=== PATIENT | male | born 1985 | race Caucasian/White ===

== ENCOUNTER 2021-03-06 16:16 | Outpatient (REF) | payer OTHER, SELFPAY ==
--- NOTE | ~2021-03-06 | XR_ITS ---
EXAMINATION: XR KNEE, LEFT CLINICAL INFORMATION: Pain COMPARISON: None TECHNIQUE: Four views of the left knee. FINDINGS: Bones and soft tissues are normal. No fracture or joint effusion. Alignment is anatomic. Joint spaces are well maintained. No abnormal soft tissue calcification. XR/XR knee LT 4V IMPRESSION: Normal left knee.
== END 2021-03-06 16:17 | disposition home or self-care (01) ==
LOC: HO.HMGCX 16:16
PROVIDERS: PCP Nurse Practitioner Family; Visit Provider Nurse Practitioner Family
DX: M25.562 Pain in left knee (principal)
CPT/HCPCS: 73564

== ENCOUNTER 2021-05-28 08:00 | Outpatient (RCR) | payer OTHER, SELFPAY ==
--- NOTE | 2021-03-19 14:10 | MHC.PT.EP ---
[facility] [place] Office [place] Office [place] Office [address] [phone] F: [phone] F: [phone] F: [phone] F: [phone] Physical Therapy Plan of Care Date of Evaluation: Date of Surgery: n/a Diagnosis: L knee pain Assessment: Patient is a 35 year old R handed male who presents with s/s consistent with L knee pain. 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 Patient past medical history includes back pain, he received PT before for this. Current impairments include pain, ROM, flexibility, activity tolerance and functional mobility. Functional limitations include decreased ability to walk, change positions, stand, transfer, negotiate stairs, and perform weight bearing activities.. Patient is motivated with good rehab potential. Skilled PT will address impairments and functional limitations in order to achieve goals. Frequency and Duration: The patient will be seen 2x/week for 5 weeks Short Term Goals: I with HEP - 2 week (-) flor - 3 weeks Normal HS flexibility - 3 weeks Shelter Goals: Pain free ADLs/waking up/changing positions - 5 weeks Treatment Plan: Modalities to reduce pain, spasms and effusion. Manual therapy to restore motion and function. Therapeutic exercise to improve strength and flexibility. Neuromuscular re-education for posture and balance. Therapeutic activities to return to functional activities of daily living. Electronically signed by: Tomas Kapoor, PT Please sign and return to therapist. Thank you for your referral.
== END 2021-07-26 12:50 | disposition home or self-care (01) ==
LOC: HO.PTCHIC 08:00
PROVIDERS: PCP Nurse Practitioner Family; Visit Provider Nurse Practitioner Family
DX: M25.562 Pain in left knee (principal)
CPT/HCPCS: 97110; 97112; 97140; 97161; 97530

== ENCOUNTER 2021-06-06 15:01 | Outpatient (REF) | payer OTHER, SELFPAY ==
--- NOTE | ~2021-06-06 | MR_ITS ---
EXAMINATION: MR KNEE WITHOUT CONTRAST, LEFT CLINICAL INFORMATION: Pain in the left knee. COMPARISON: None TECHNIQUE: MRI of the knee without contrast was performed using routine sequences on a high-field scanner. FINDINGS: MENISCI: Medial Meniscus: Question subtle deformity and increased signal along the periphery of the posterior horn of the meniscus at the junction of the posterior horn and posterior root. Findings suspicious but not definitive for tear. Lateral Meniscus: Intact. 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 PCL intact. Collateral: Intact. EXTENSOR MECHANISM: Intact. ARTICULAR CARTILAGE/BONE: Patellofemoral Compartment: Normal. Medial Compartment: Normal. Lateral Compartment: Cartilage heterogeneity, surface irregularity and subchondral cystic change in the posterior weightbearing femoral articular surface extending over 2 cm anterior to posterior and 1 cm transverse. Additional scattered cartilage heterogeneity along the posterior weightbearing tibial articular surface. Small marginal osteophytes Overall mild arthrosis. JOINT FLUID AND BURSAE: Normal. MR/MR knee LT wo con IMPRESSION: Findings in the periphery of the posterior horn of the medial meniscus suspicious but not definitive for tear. Mild arthrosis of the lateral compartment. 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
== END 2021-06-06 15:02 | disposition home or self-care (01) ==
LOC: HO.MRI 15:01
PROVIDERS: PCP Nurse Practitioner Family; Visit Provider Nurse Practitioner Family
DX: M25.562 Pain in left knee (principal)
CPT/HCPCS: 73721

== ENCOUNTER → 2021-06-18 08:40 | Outpatient (BNVA) | payer OTHER, SELFPAY | PROVIDERS: PCP Internal Medicine; Visit Provider Physician Assistant | DX: S83.512A Sprain of anterior cruciate ligament of left knee, initial encounter (principal); M22.42 Chondromalacia patellae, left knee | CPT/HCPCS: 20610; 99202; J1040 ==

== ENCOUNTER 2021-07-01 14:47 | Outpatient (REF) | payer OTHER, SELFPAY | END 2021-07-01 14:48 | disposition home or self-care (01) | LOC: HO.HMGCLDS 14:47 | PROVIDERS: PCP Nurse Practitioner Family; Visit Provider Internal Medicine | DX: Z20.822 Contact with and (suspected) exposure to COVID-19 (principal) | CPT/HCPCS: C9803; U0003; U0005 ==

== ENCOUNTER → 2021-08-01 08:52 | Outpatient (BNVA) | payer OTHER, SELFPAY | PROVIDERS: Visit Provider Physician Assistant | DX: S83.512D Sprain of anterior cruciate ligament of left knee, subsequent encounter (principal) | CPT/HCPCS: 99212 ==

== ENCOUNTER 2021-11-12 12:17 | Outpatient (REF) | payer OTHER, SELFPAY ==
[2021-11-12 13:00] LABS: Influenza A PCR NEGATIVE (Negative); Influenza B PCR NEGATIVE (Negative); Resp Syncy Virus RNA Qual PCR NEGATIVE (Negative); SARS COV2 PCR INHOUSE POSITIVE (Negative)
== END 2021-11-12 12:18 | disposition home or self-care (01) ==
LOC: HO.LNP 12:17
PROVIDERS: Visit Provider Physician Assistant
DX: Z20.822 Contact with and (suspected) exposure to COVID-19 (principal); J02.9 Acute pharyngitis, unspecified
CPT/HCPCS: 0241U

== ENCOUNTER 2022-04-16 08:00 | Outpatient (RCR) | payer OTHER, SELFPAY ==
--- NOTE | 2021-12-25 18:10 | MHC.PT.EP ---
[facility] [place] Office [place] Office [place] Office [address]ia Hughes 140 [facility] [phone] F: [phone] F: [phone] F: [phone] F: [phone] Physical Therapy Plan of Care Date of Evaluation: Date of Surgery: Diagnosis: ACL tear L Assessment: Pt is a 36 y/o male who is active in the and presents with chronic complete L ACL tear resulting in decreased tolerance for running/ jogging which is required for his job, as well as pivoting on his L LE, performing squatting activities, performing sport and recreational activities, standing for long duration secondary to evidence of complete L ACL tear on MRI, decreased L knee and B glute medius strength and pain; Pt is deemed an appropriate candidate to receive skilled PT services to address his physical impairments in order to improve his functional ability. Frequency and Duration: The patient will be seen 1 x / wk x 8 wks. Short Term Goals: Initiate HEP Halfway Goals: I with HEP. L knee extension MMT to 5/5; initial 4/5. Improve B glute med to 5/5; initial 4/5. Pt will be able to run 1 mile with managed symptoms; initial: unable without significant pain and stiffness the next day. Treatment Plan: Modalities to reduce pain, spasms and effusion. Manual therapy to restore motion and function. Therapeutic exercise to improve strength and flexibility. Neuromuscular re-education for posture and balance. Therapeutic activities to return to functional activities of daily living. Electronically signed by: Fran Salas PT, DPT. Please sign and return to therapist. Thank you for your referral.
== END 2022-04-16 10:57 | disposition home or self-care (01) ==
LOC: HO.PTCHIC 08:00
PROVIDERS: PCP Nurse Practitioner Family; Visit Provider Physician Assistant
DX: S83.512A Sprain of anterior cruciate ligament of left knee, initial encounter (principal)
CPT/HCPCS: 97110; 97112; 97161; 97530

== ENCOUNTER 2023-04-09 09:33 | Outpatient (REF) | payer OTHER, SELFPAY ==
--- NOTE | ~2023-04-09 | XR_ITS ---
EXAMINATION: XR WRIST, LEFT CLINICAL INFORMATION: Left wrist pain. COMPARISON: None available. TECHNIQUE: PA, lateral, scaphoid and oblique views of the left wrist. FINDINGS: The bones and soft tissues are normal. No fracture. Alignment is anatomic with normal joint spaces. No erosions or abnormal soft tissue calcifications. XR/XR wrist LT min 3V IMPRESSION: Unremarkable left wrist.
== END 2023-04-09 09:34 | disposition home or self-care (01) ==
LOC: HO.HMGCX 09:33
PROVIDERS: PCP Nurse Practitioner Family; Visit Provider Nurse Practitioner Family
DX: M25.532 Pain in left wrist (principal)
CPT/HCPCS: 73110

== ENCOUNTER 2023-05-18 11:10 | Outpatient (REF) | payer OTHER, SELFPAY ==
--- NOTE | ~2023-05-18 | XR_ITS ---
EXAMINATION: XR WRIST, LEFT CLINICAL INFORMATION: Pain COMPARISON: 04/09/2023 TECHNIQUE: PA, lateral, and oblique views of the left wrist. FINDINGS: The bones and soft tissues are normal. No fracture. Alignment is anatomic with normal joint spaces. No erosions or abnormal soft tissue calcifications. XR/XR wrist LT min 3V IMPRESSION: Normal left wrist.
== END 2023-05-18 11:11 | disposition home or self-care (01) ==
LOC: HO.HOSX 11:10
PROVIDERS: Visit Provider Physician Assistant
DX: S69.92XD Unspecified injury of left wrist, hand and finger(s), subsequent encounter (principal); M25.532 Pain in left wrist; X58.XXXD Exposure to other specified factors, subsequent encounter
CPT/HCPCS: 73110; 99212

== ENCOUNTER 2023-05-18 13:27 | Outpatient (AMB) | payer OTHER, SELFPAY ==
[2023-05-18 13:32] VITALS: BMI 28.7
--- NOTE | 2023-05-18 13:32 | MHC.OFFVIS ---
Intake Vital Signs 05/18/23 13:32 Height 5 ft 10 in Weight 200 lb BMI 28.7 Handedness Right Intake Visit Reasons: New Prob - left wrist pain Intake Note: Kolton is a 38 year old right hand dominant male who presents today for a evaluation for his left wrist pain. He was seen on 04/09/23 in a walk in center due to having a lot of pain. Pain is worse when doing push ups and being flexed per patient. Patient reports no changes in pain. He states that his pain is on the dorsal aspect of the wrist, also he states that when he applies pressure when his wrist is flexed it causes him a lot of pain. Denies numbness and tingling. Allergies No Known Allergies Allergy (Verified 05/18/23 13:43) HPI New Prob - left wrist pain HPI Details 38-year-old right hand dominant male who presents in the office today for an evaluation of left wrist pain. He claims he was seen in the Walk-In clinic on 04/09/2023 due to having a lot of pain. He states the pain increases with push up, being flexed, or applying pressure. He states he has had no change in the pain. He claims the pain is on the dorsal aspect of the left wrist. He does not recall any injury. He states about 6 months ago he was wearing a watch that he felt was causing the pain, he has since stopped wearing the watch. He denies numbness or tingling. Patient has a history of prior bilateral wrist fractures. [facility] Surgical History [place] teeth extracted Social History Alcohol intake: current Alcohol intake frequency: a few times a week Alcohol type: beer Patient Tobacco Use Status: Never used Tobacco Current occupational status: employed Current occupation: rt handed/ [employer] Review of Systems Const All systems reviewed & are unremarkable except as noted in HPI and below Physical Exam Vital Signs: BMI result Body Mass Index 28.7 Const General: cooperative, healthy appearing, comfortable, no acute distress, well developed and alert Orientation/consciousness: patient oriented x3 HEENT Head: Yes normal to inspection, Yes normocephalic and Yes atraumatic Eyes General: appearance normal, both eyes and all related structures Resp Effort & Inspection: normal respiratory effort and able to speak in complete sentences Cardio Rate: regular rate Peripheral pulses: Peripheral pulses 2+ throughout GI Palpation (GI): Soft to palpation Skin Lesions: no lesions Rashes: no rashes Neuro General: patient oriented x3 Extrem Other: Left wrist: Normal to inspection. No ecchymosis, erythema, or edema. Able to perform full finger flexion, extension, abduction, adduction, finger cross, okay sign, and thumbs up without deficit. Able to make a closed fist. Sensation intact. Capillary refill is brisk. Radial pulse intact. Pain and tenderness to palpation over the scapholunate over the dorsal aspect of the wrist. Assessment & Plan Assessment & Plan (1) Scapholunate ligament injury with no instability: Code(s): S69.90XA - Unspecified injury of unspecified wrist, hand and finger(s), initial encounter Plan Mr. Toscano is a 38-year-old right hand dominant male who presents in the office today for an evaluation of left wrist pain. He claims he was seen in the Walk-In clinic on 04/09/2023 due to having a lot of pain. He states the pain increases with push up, being flexed, or applying pressure. He states he has had no change in the pain. He claims the pain is on the dorsal aspect of the left wrist. He does not recall any injury. He states about 6 months ago he was wearing a watch that he felt was causing the pain, he has since stopped wearing the watch. He denies numbness or tingling. Patient has a history of prior bilateral wrist fractures. X-rays obtained in the office today revealed no acute fractures or dislocation. However, it did show a possible scapholunate joint separation. Due to this the patient will be referred for an MRI of the left wrist. Once results are reviewed I will discuss the results with Dr. Wadsworth to discuss the possibility of moving forward with occupational therapy. The patient will call the office after the MRI is obtained. Follow up will be after the MRI is obtained and discussed with Dr. Wadsworth, or sooner if needed. X-rays of the left wrist which were obtained while in the office today and were reviewed by me, Kim Lombardi PA-C, revealed no acute fractures or dislocation. Perhaps slight widening of the scapholunate joint. Orders: Orders XR wrist LT min 3V Today M25.539 - Pain in unspecified wrist MR wrist LT wo con Today M25.532 - Pain in left wrist, S69.90XA - Unspecified injury of unspecified wrist, hand and finger(s), initial encounter Patient Instructions: Scribed for Kim Lombardi PA-C by Pat Barajas medical transcription editor, on 05/18/2023 at 1:24 pm, EST. Your attestation Coding Level of Care Code Est Pt Level 3 (33708) Diagnoses Scapholunate ligament injury with no instability S69.90XA
== END 2023-05-18 14:01 | disposition home or self-care (01) ==
PROVIDERS: PCP Nurse Practitioner Family; Visit Provider Physician Assistant
DX: M24.232 Disorder of ligament, left wrist (principal); Z87.81 Personal history of (healed) traumatic fracture
CPT/HCPCS: 99213

== ENCOUNTER 2023-07-14 15:58 | Outpatient (REF) | payer OTHER, SELFPAY ==
--- NOTE | ~2023-07-14 | MR_ITS ---
EXAMINATION: MRI WRIST WITHOUT CONTRAST, LEFT CLINICAL INFORMATION: Injury of wrist. Patient reports wrist pain. COMPARISON: X-ray of the left wrist May 2023. TECHNIQUE: MRI of the left wrist is performed without contrast and a high-field MRI scanner. FINDINGS: SUBCUTANEOUS SOFT TISSUES: Normal. MUSCLES/TENDONS: There is fairly subtle linear increased signal at the central portion of the extensor carpi ulnaris at the level distal ulna/ulnar styloid compatible with tendinosis or minimal interstitial intrasubstance partial tearing. No enlargement of the tendon or transverse defect. See axial image 17 series 7. No tenosynovitis. Remaining muscles and tendons unremarkable. NEUROVASCULAR STRUCTURES: Normal. TRIANGULAR FIBROCARTILAGE COMPLEX: There is heterogeneous increased signal within the middle third portion of the triangular fibrocartilage compatible with focal degenerative change or partial tearing. See coronal image 7 series 9. The central and peripheral aspect of the complex is intact. INTRAOSSEOUS LIGAMENTS: Intact. BONE/CARTILAGE: Normal. Additional findings: There is a lobulated cystic-appearing mass/collection abutting the volar aspect of the triquetrum trapezoid and capitate deep to the carpal tunnel and abutting the flexor carpi radialis tendon more likely reflecting a ganglion cyst and prominent vessels this measures up to 12 mm at transverse 15 mm craniocaudal 2 to 4 mm anterior to posterior MR/MR wrist LT wo con IMPRESSION: 1. Subtle findings in the extensor carpi ulnaris tendon compatible with tendinosis and/or minimal interstitial partial tearing. 2. Degenerative change versus partial tearing of the middle third portion of the triangular fibrocartilage. 3. Probable ganglion cyst rather than prominent vessels deep to the carpal tunnel.
== END 2023-07-14 15:59 | disposition home or self-care (01) ==
LOC: HO.MRI 15:58
PROVIDERS: PCP Nurse Practitioner Family; Visit Provider Physician Assistant
DX: S69.92XA Unspecified injury of left wrist, hand and finger(s), initial encounter (principal)
CPT/HCPCS: 73221

== ENCOUNTER 2023-07-28 14:43 | Outpatient (AMB) | payer OTHER, SELFPAY ==
[2023-07-28 14:55] VITALS: BP 120/84; PULSE 69; O2SAT 99; BMI 28.3
--- NOTE | 2023-07-28 14:55 | A.OFFPC_ITS ---
Vital Signs 07/28/23 14:55 Height 5 ft 10 in Weight 197 lb 4 oz BMI 28.3 BP 120/84 Blood Pressure Location Rt brachial Position Sitting Pulse 69 Pulse Source Pulse Oximeter Pulse Oximetry (%) 99 Oxygen Delivery Method Room Air Intake Visit Reasons: phy Allergies No Known Allergies Allergy (Verified 07/28/23 15:38) Medication List - Last Reconciled 07/28/23 by KIA Conde No Known Home Meds Tobacco use date assessed: 07/28/23 Dental Screening Dental Screen Date: 07/28/23 Did you have a dental visit in the last 12 months?: Yes Did you have a dental problem in the last 6 months where you did not have access to dental care?: No Was dental information given to patient?: Patient has dentist HPI phy HPI Details Pt is here for a PE. Will order labs. PFS Surgical History [place] teeth extracted Social History Housing: House Alcohol intake: current Alcohol intake frequency: a few times a week Alcohol type: beer Patient Tobacco Use Status: Never used Tobacco e-Cigarette/Vaping Use: Never Used Second Hand Smoke Exposure: No Current occupational status: employed Current occupation: rt handed/ [employer] Cognitive needs: No Hearing needs: No Vision needs: No Review of Systems Const Denies chills and Denies fever(s) Eyes Denies blurry vision ENT Denies vertigo, Denies dizziness and Denies sore throat Card Denies chest pain at rest, Denies chest pain with activity, Denies diaphoresis, Denies dyspnea and Denies dyspnea on exertion Resp Denies cough, Denies dyspnea, Denies dyspnea on exertion and Denies wheezing GI Denies abdominal pain, Denies melena, Denies hematochezia, Denies constipation, Denies diarrhea and Denies loose stools Denies hematuria Musc Denies numbness and Denies tingling Skin/Breast Denies lesions Neuro Denies vertigo, Denies dizziness, Denies numbness and Denies tingling Psych Denies anxiety, Denies depression, Denies homicidal ideation, Denies suicidal ideation and Denies other (substance abuse) Aller/Immun Denies wheezing Physical exam (Primary Care) Vital Signs: Last Vital Signs Pulse 69 07/28/23 14:55 BP 120/84 07/28/23 14:55 Pulse Ox 99 07/28/23 14:55 Oxygen Delivery Method Room Air 07/28/23 14:55 BMI result Body Mass Index 28.3 Tobacco/Smoking Status: Tobacco use Status Tobacco use date assessed 07/28/23 07/28/23 15:00 Patient Tobacco Use Status Never used Tobacco 07/28/23 15:00 e-Cigarette/Vaping Use Never Used 07/28/23 15:00 Const General: cooperative Nutritional Appearance: well nourished Orientation/consciousness: patient oriented x3 HENMT Head: Yes normal to inspection, Yes normocephalic and Yes atraumatic Ears: TM's normal bilaterally Eyes General: appearance normal, both eyes and all related structures Alignment and Position: alignment normal and position normal Neck Neck: Yes normal visual inspection and Yes no lymphadenopathy Thyroid: Thyroid normal Resp Effort & Inspection: normal respiratory effort Auscultation: clear to auscultation bilaterally Cardio Rate: regular rate Rhythm: regular rhythm Heart sounds: S1 normal heart sound present, S2 normal heart sound present and no murmurs GI Palpation (GI): Soft to palpation and nontender Auscultation: normal bowel sounds Male General Exam: Yes normal external exam Penis: normal penis Scrotum: scrotum normal, testes descended bilaterally and no inguinal hernias Testes: no testicular mass Skin Rashes: no rashes Neuro General: patient oriented x3, moves all extremities, no focal motor deficits and deep tendon reflexes 2+ bilaterally Romberg Test: Negative Psych Appearance: grossly normal Mental Status: mental status grossly normal Speech and movement: Normal speech and movement present Affect: normal affect Attitude: cooperative Thought process: Normal thought process present Thought content: Normal thought content present Insight: Good insight present (Psych) Judgement: Good judgement present (Psych) Assessment and Plan Assessment & Plan (1) Physical exam: Code(s): Z00.00 - Encounter for general adult medical examination without abnormal findings Plan The patient agreed to the use of a medical record retrieval specialist for this encounter. Scribed for KIA Cheung by Tanisha Bustamante medical record retrieval specialist, on 07/28/2023 at 15:20 EST. Orders: Orders Complete Blood Count Auto Diff Today Z00.00 - Encounter for general adult medical examination without abnormal findings TSH reflex Free T4 Today Z00.00 - Encounter for general adult medical examination without abnormal findings UA CC w/rflx Micro + Cult Today Z00.00 - Encounter for general adult medical examination without abnormal findings Comprehensive [place]. Panel Fast Today Z00.00 - Encounter for general adult medical examination without abnormal findings Lipid Panel Today Z00.00 - Encounter for general adult medical examination without abnormal findings Coding Level of Care Code Est Pt Prev Care 18-39y(44855) Diagnoses Physical exam Z00.00
== END 2023-07-28 15:32 | disposition home or self-care (01) ==
PROVIDERS: Visit Provider Nurse Practitioner Family
DX: Z00.00 Encounter for general adult medical examination without abnormal findings (principal)
CPT/HCPCS: 99395

== ENCOUNTER 2023-07-30 09:05 | Outpatient (REF) | payer OTHER, SELFPAY ==
[2023-07-30 11:33] LABS: MANUAL DIFF FLAG NO
[2023-07-30 11:49] LABS: Basophils Absolute Auto 0.1 X10*3/uL (0.0-0.2); Basophils Percent Auto 1.3 % (0-2); Eosinophils Absolute Auto 0.1 X10*3/uL (0.0-0.4); Eosinophils Percent Auto 2.3 % (0-4); Hemoglobin 14.2 g/dl (14.0-18.0); Imm Gran Abs Auto 0.02 X10*3/uL (0.00-0.03); Imm Gran Pct Auto 0.4 % (0.0-0.4); Lymphocytes Absolute Auto 0.8 X10*3/uL (1.2-4.9); Lymphocytes Percent Auto 17.8 % (20-40); Mean Corpuscular HGB Conc 33.8 g/dl (31.0-36.0); Mean Corpuscular Hemoglobin 30.7 pg (27.0-33.0); Mean Corpuscular Volume 90.9 fL (80.0-98.0); Mean Platelet Volume 11.8 fL (9.4-12.4); Monocytes Absolute Auto 0.3 X10*3/uL (0.1-1.2); Neutrophils Absolute Auto 3.4 x10*3/uL (2.0-8.3); Neutrophils Percent Auto 71.2 % (45-73); Platelet Count 250 X10*3/uL (160-400); Red Blood Count 4.62 X10*6/uL (4.60-5.80); Red Cell Distribution Width 12.9 % (11.0-16.0); White Blood Count 4.7 X10*3/uL (4.8-10.8)
[2023-07-30 12:06] LABS: Appearance Urine Clear; Color Urine Yellow; Glucose Urine UA Negative (Negative); Leukocyte Esterase Urine Negative (Negative); Nitrite Urine Negative (Negative); Urine Blood Negative (Negative); Urine Ketones Negative (Negative); Urine Protein Negative (Neg-Trace)
[2023-07-30 12:10] LABS: Alanine Aminotransferase 19 U/L (0-40); Albumin Level 4.2 g/dL (3.5-5.0); Alkaline Phosphatase 63 U/L (39-117); Anion Gap 10 (12-20); Aspartate Amino Transferase 17 U/L (5-37); Bilirubin Total 1.5 mg/dL (0.0-1.0); Blood Urea Nitrogen 10 mg/dL (9-16); Calcium 9.3 mg/dL (8.4-10.2); Carbon Dioxide 27 mmol/L (22-29); Chloride 107 mmol/L (96-108); Cholesterol 132 mg/dL (<200); Estimated Glomerular Filt Rate > 60; Glucose Fasting 89 mg/dL (60-99); HDL Cholesterol 50 mg/dL (>40); LDL Cholesterol Calculated 70 mg/dL (<100); Potassium 4.3 mmol/L (3.3-5.1); Sodium 140 mmol/L (135-145); Total Protein 6.7 g/dL (6.5-8.0); Triglycerides 62 mg/dL (<150)
[2023-07-30 12:28] LABS: TSH reflex Free T4 2.16 uIU/mL (0.32-4.0)
== END 2023-07-30 09:06 | disposition home or self-care (01) ==
LOC: HO.HMGCLDS 09:05
PROVIDERS: PCP Nurse Practitioner Family; Visit Provider Nurse Practitioner Family
DX: Z00.00 Encounter for general adult medical examination without abnormal findings (principal); Z20.2 Contact with and (suspected) exposure to infections with a predominantly sexual mode of transmission; Z13.220 Encounter for screening for lipoid disorders; Z13.29 Encounter for screening for other suspected endocrine disorder
CPT/HCPCS: 36415; 80053; 80061; 81003; 84443; 85025

== ENCOUNTER 2023-08-20 08:15 | Outpatient (REF) | payer OTHER, SELFPAY ==
[2023-08-20 12:06] LABS: Bilirubin Direct 0.4 mg/dL (0.0-0.5); Bilirubin Total 1.2 mg/dL (0.0-1.0)
== END 2023-08-20 08:16 | disposition home or self-care (01) ==
LOC: HO.HMGCLDS 08:15
PROVIDERS: PCP Nurse Practitioner Family; Visit Provider Nurse Practitioner Family
DX: R17 Unspecified jaundice (principal)
CPT/HCPCS: 36415; 82247; 82248

== ENCOUNTER 2023-09-09 12:07 | Outpatient (AMB) | payer OTHER, SELFPAY ==
--- NOTE | 2023-09-09 12:29 | A.OFFVIS_ITS ---
Intake Intake Visit Reasons: ov- MRI Wrist LT review Intake Note: Kolton is a 38 year old right hand dominant male who presnets today for an MRI follow up of his left wrist. He reports no changes in symptoms pain is on the dorsal aspect of the wrist, also he states that when he applies pressure when his wrist is flexed Allergies No Known Allergies Allergy (Verified 07/28/23 15:38) HPI ov- MRI Wrist LT review HPI Details Kolton is a 38 year old right hand dominant man who presents for an MRI review of his left wrist. His chief complaint is of pain in his wrist particularly when he bends his hand back as performing push-ups. He does not recall any particular injury recently, though he notes that he uses drills and things that could have tweaked his wrist. He did have a wrist fracture when he was much younger. He says this pain began on ~04/09/23. He has a hx of repeat bilateral wrist fractures PFSH Surgical History [place] teeth extracted Social History Housing: House Alcohol intake: current Alcohol intake frequency: a few times a week Alcohol type: beer Patient Tobacco Use Status: Never used Tobacco e-Cigarette/Vaping Use: Never Used Second Hand Smoke Exposure: No Current occupational status: employed Current occupation: rt handed/ [employer] Cognitive needs: No Hearing needs: No Vision needs: No Review of Systems Const All systems reviewed & are unremarkable except as noted in HPI and below Physical Exam Const General: cooperative, healthy appearing and no acute distress Orientation/consciousness: patient oriented x3 HEENT Head: Yes normocephalic and Yes atraumatic Eyes EOM: EOMs intact bilaterally Resp Effort & Inspection: normal respiratory effort and able to speak in complete sentences Cardio Jugular venous distension: no JVD Skin General skin exam: turgor normal Rashes: no rashes Neuro General: patient oriented x3 Extrem Other: Evaluation of Left Upper Extremity: The patient is alert, oriented, and in no acute distress Neuro: Median, Ulnar, Radial nerves motor and sensory intact and sensation is normal to the tips of all digits . No complaint of numbness in his hands. Vascular: Cap refill brisk ROM: He can make a fist and extend all his digits No locking or catching Skin: No lacerations or abrasions. General: No Ecchymosis. No Erythema or evidence of infection. Not particularly tender over the ECU tendon. No pain with resisted wrist or finger extension. The DRUJ is stable on exam, and he has full prono-supination. No foveal tenderness. Radiographs: 3 views of the left wrist from 05/18/23 were reviewed by me today in clinic. They show [ ]. MRI: IMPRESSION: 1. Subtle findings in the extensor carpi ulnaris tendon compatible with tendinosis and/or minimal interstitial partial tearing. 2. Degenerative change versus partial tearing of the middle third portion of the triangular fibrocartilage. 3. Probable ganglion cyst rather than prominent vessels deep to the carpal tunnel. Dictated By: Alfredito Hare MD 07/16/23 Psych Appearance: grossly normal Affect: normal affect Attitude: cooperative Assessment & Plan Assessment & Plan (1) Left wrist sprain: Code(s): S63.502A - Unspecified sprain of left wrist, initial encounter Plan Assessment & Plan: 1. Left dorsal wrist pain with push-up position Onset ~04/09/23 No scapholunate injury seen on MRI I educated him about this condition I discussed non-operative treatment options I recommend OT and activity modification No numbness and tingling in his hand. Not particularly tender over the ECU tendon I ordered OT hand therapy to work on normalizing hand function, especially performing activities that put his wrist under load in hyperextension, such as with push-ups He can follow up prn Scribed for Harleen Wadsworth MD by Nicholas Smith, medical billing assistant, on 09/09/23 at 1:30 PM, EST. Coding Level of Care Code Est Pt Level 4 (97018) Diagnoses Left wrist sprain S63.502A
== END 2023-09-09 13:28 | disposition home or self-care (01) ==
PROVIDERS: PCP Nurse Practitioner Family; Visit Provider Orthopaedic Surgery
DX: S63.502A Unspecified sprain of left wrist, initial encounter (principal)
CPT/HCPCS: 99213

== ENCOUNTER → 2023-09-09 12:07 | Outpatient (BNVA) | payer OTHER, SELFPAY | PROVIDERS: PCP Nurse Practitioner Family; Visit Provider Orthopaedic Surgery | DX: S63.502A Unspecified sprain of left wrist, initial encounter (principal) | CPT/HCPCS: 99212 ==

== ENCOUNTER 2023-10-19 09:00 | Outpatient (AMB) | payer OTHER, SELFPAY ==
[2023-10-19 10:00] VITALS: BP 140/78; PULSE 72; TEMP 36.6; O2SAT 99; BMI 29.9
--- NOTE | 2023-10-19 10:00 | MHC.OFFWIV ---
Intake Vital Signs 10/19/23 10:00 Height 5 ft 10 in Weight 94.574 kg BMI 29.9 BP 140/78 H Blood Pressure Location Rt brachial Position Sitting Pulse 72 Pulse Source Pulse Oximeter Temp 97.8 F Temp Source Temporal Artery Scan Pulse Oximetry (%) 99 Oxygen Delivery Method Room Air Intake Visit Reasons: EP, headache, cough ([phone]) Intake Note: pt is here for c/o headache, cough, sore throat Patient Tobacco Use Status: Never used Tobacco Allergies No Known Allergies Allergy (Verified 10/19/23 10:01) Do you need a note to return to daycare/school/sports/work: Yes HPI HPI Comments History of Present Illness Details 38-year-old who presents with fatigue, malaise, myalgias, cough, subjective fevers and chills, sinus congestion sore throat, headache that started a few days ago. Ear feel clogged.? No known sick contacts.? Denies chest pain, shortness of breath, nausea, vomiting, abdominal pain, headache vision change, dizziness, weakness, changes in bowel or urinary habits Physical exam benign History and physical exam concerning for viral illness versus bronchitis versus flu versus COVID versus RSV vs sinusitis .? Unlikely pneumonia, ACS, dissection, pulmonary embolism, acute respiratory distress, epiglottitis, peritonsillar retropharyngeal abscess, threat airway, intracranial hemorrhage, stroke. Headache likely viral Plan at this time viral testing will discharge patient home with antibiotics for sinusitis as sinus symptoms predominate.? Educated patient on diagnosis and treatment plan, answered all question, patient verbalizes understanding.? At this time patient will be discharged home, advised to return with new or worsening symptoms.? Educated on worrisome signs and symptoms and when to return.? At this time I feel comfortable discharge home. [facility] Surgical History [place] teeth extracted Social History Housing: House Alcohol intake: current Alcohol intake frequency: a few times a week Alcohol type: beer Patient Tobacco Use Status: Never used Tobacco e-Cigarette/Vaping Use: Never Used Second Hand Smoke Exposure: No Current occupational status: employed Current occupation: rt handed/ [employer] Cognitive needs: No Hearing needs: No Vision needs: No Review of Systems Const Details: Constitutional : No Weight loss, + Fever, + Chills, + Fatigue, + Malaise ENT/Mouth : + sore throat, No Rhinorrhea Eyes: No Eye Pain, No Swelling, No Redness Cardiovascular : No Chest Pain, No SOB, No Dyspnea on Exertion, No Orthopnea, No Edema, No Palpitations Respiratory : + Cough, No Sputum, No Wheezing Gastrointestinal : No Nausea, No Vomiting, No Diarrhea, No Constipation, No abdominal Pain, No Hematochezia, No Melena Genitourinary : No Dysuria, No Urinary Frequency, No Hematuria, Musculoskeletal : No joint pain, No Myalgias, No Joint Swelling Skin : No Skin Lesions, No rash Neuro : No Weakness, No Numbness, No Dizziness, + Headache Psych : No Anxiety/Panic, No Depression All other systems reviewed and are negative All systems reviewed & are unremarkable except as noted in HPI and below Physical Exam Vital Signs: Last Vital Signs Temp 97.8 F 10/19/23 10:00 Pulse 72 10/19/23 10:00 BP 140/78 H 10/19/23 10:00 Pulse Ox 99 10/19/23 10:00 Oxygen Delivery Method Room Air 10/19/23 10:00 BMI result Body Mass Index 29.9 vss Appearance: Alert.? Oriented X3.? No acute distress.? Head: Normocephalic, atraumatic, no step-offs or deformities Eyes: Pupils equal, round and reactive to light.? ENT: Pharynx normal.? Bilateral ear effusions. NOrmal TM and EC. No mastoid tenderness. + post nasal drip noted. Neck: Normal inspection.? Neck supple.? CVS: Normal heart rate and rhythm.? Pulses normal.? Respiratory: No respiratory distress.? Breath sounds normal.? Abdomen: Soft and nontender.? Skin: Skin warm and dry.? Normal skin color.? Normal skin turgor.? Extremities: No lower extremity edema.? No calf ttp. 5/5 strength to bilateral upper and lower extremities Neuro: Oriented X 3.? No motor deficit.? No sensory deficit. CN 2-12 intact Results AMB Rapid Strep AMB Rapid Strep Negative Last Edit by Tim Gibson CMA on 10/19/23 10:47 Assessment & Plan Assessment & Plan (1) Sinusitis: Code(s): J32.9 - Chronic sinusitis, unspecified (2) Acute effusion of both middle ears: Code(s): H65.193 - Other acute nonsuppurative otitis media, bilateral Plan Take your medications as prescribed. If you were prescribed antibiotics today, it is important that you take your medication to their entirety, do not skip any doses, do not finish them early. Follow-up with your primary care provider this week. Return to the emergency department with new or worsening symptoms. Such as fevers, chills, chest pain, shortness of breath, nausea, vomiting, dizziness, headache, vision changes, lethargy In case of emergency call 911 Orders: Orders AMB Rapid Strep Screen Today Z13.9 - Encounter for screening, unspecified Medications: New prednisone 20 mg PO DAILY 5 tabs 0RF 5 days Coding Level of Care Code Est Pt Level 3 (38105) Diagnoses Sinusitis J32.9 Acute effusion of both middle ears H65.193
== END 2023-10-19 10:47 | disposition home or self-care (01) ==
PROVIDERS: PCP Nurse Practitioner Family; Visit Provider Physician Assistant
DX: J32.9 Chronic sinusitis, unspecified (principal); H65.193 Other acute nonsuppurative otitis media, bilateral; J02.9 Acute pharyngitis, unspecified
CPT/HCPCS: 87880; 99213

== ENCOUNTER 2023-10-19 13:47 | Outpatient (REF) | payer OTHER, SELFPAY ==
[2023-10-19 14:43] LABS: Influenza A PCR NEGATIVE (Negative); Influenza B PCR NEGATIVE (Negative); Resp Syncy Virus RNA Qual PCR POSITIVE (Negative); SARS COV2 PCR INHOUSE NEGATIVE (Negative)
== END 2023-10-19 13:48 | disposition home or self-care (01) ==
LOC: HO.LNP 13:47
PROVIDERS: Visit Provider Physician Assistant
DX: Z11.52 Encounter for screening for COVID-19 (principal); Z20.822 Contact with and (suspected) exposure to COVID-19; B34.9 Viral infection, unspecified
CPT/HCPCS: 0241U

== ENCOUNTER 2023-11-16 08:30 | Outpatient (RCR) | payer OTHER, SELFPAY ==
--- NOTE | 2023-11-13 10:19 | MHC.OT.EP ---
[address] [phone] Occupational Therapy Plan of Care Patient Name: Kolton Toscano Date of Evaluation: 11/13/23 Diagnosis: Left wrist sprain Pain Location: Mid wrist. Ache, with over pressure in flexion , extension Pain Score: 5 Pain Scale Used: Aggravating Factors: Over pressure to wrist flexion and extension Alleviating Factors: Avoiding Assessment: Pt is a 38 yo male with worsening left wrist pain over the past several months initially with push ups for standards and now with left hand pushing and over pressure in wrist flexion and extension 05/18/23 MRI: IMPRESSION: 1. Subtle findings in the extensor carpi ulnaris tendon compatible with tendinosis and/or minimal interstitial partial tearing. 2. Degenerative change versus partial tearing of the middle third portion of the triangular fibrocartilage. 3. Probable ganglion cyst rather than prominent vessels deep to the carpal tunnel. 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 Thank you once again for your referral.
--- NOTE | 2023-12-30 08:45 | MHC.OT.DC ---
[address] [phone] F: [phone] Occupational Therapy Discharge Note Patient Name: Kolton Toscano Provider: Kim Lombardi Diagnosis: Left wrist sprain Date of Surgery: Date of Evaluation: 11/13/23 Date of Discharge: 11/25/23 Treatments to Date: 2 Cancellations to Date: No Shows to Date: 3 Discharge Status: Visit Non-compliance Discharge Summary: Good dec in pain with avoidance of wt bearing on left hand. Mild dorsal wrist edema noted Electronically Signed By: Sravanthi Nichols OT CHT CLT Reviewed/agree with student documentation: Therapist: Please Sign and return to therapist, thank you for your referral.
== END 2023-12-30 08:46 | disposition home or self-care (01) ==
LOC: HO.OT 08:30
PROVIDERS: PCP Nurse Practitioner Family; Visit Provider Physician Assistant
DX: S63.502D Unspecified sprain of left wrist, subsequent encounter (principal)
CPT/HCPCS: 97033; 97110; 97166

== ENCOUNTER 2024-01-18 15:44 | Outpatient (AMB) | payer OTHER, SELFPAY ==
[2024-01-18 16:23] VITALS: BP 122/80; PULSE 66; TEMP 36.6; O2SAT 99; BMI 32.0
--- NOTE | 2024-01-18 16:23 | MHC.OFFWIV ---
Intake Vital Signs 01/18/24 16:23 Height 5 ft 8 in Weight 210 lb 8 oz BMI 32.0 BP 122/80 Blood Pressure Location Lt brachial Position Sitting Pulse 66 Pulse Source Pulse Oximeter Temp 98 F Temp Source Oral Pulse Oximetry (%) 99 Oxygen Delivery Method Room Air Intake Visit Reasons: EP back pain Intake Note: Pt is here today for back pt. Pt states pain started the end of November. Patient Tobacco Use Status: Never used Tobacco Allergies No Known Allergies Allergy (Verified 01/18/24 16:44) Medication List - Last Reconciled 01/18/24 by Rai Wang MD prednisone 20 mg PO DAILY 5 days HPI EP back pain HPI Details 38-year-old male presents to the office for a sick visit. Patient works in the [employer]. Has part of his work, he wears a heavy suit that is 80 lb in weight. Patient has been having lower back pain which has worsened in the past few days. He has had intermittent back pain for the past 2 years. Last physical therapy was 2 years ago. Pain is in the lower back radiating into both hips. Currently he has no medications at home. [facility] Surgical History [place] teeth extracted Social History Housing: House Alcohol intake: current Alcohol intake frequency: a few times a week Alcohol type: beer Patient Tobacco Use Status: Never used Tobacco e-Cigarette/Vaping Use: Never Used Second Hand Smoke Exposure: No Current occupational status: employed Current occupation: rt handed/ [employer] Cognitive needs: No Hearing needs: No Vision needs: No Physical Exam Vital Signs: Last Vital Signs Temp 98 F 01/18/24 16:23 Pulse 66 01/18/24 16:23 BP 122/80 01/18/24 16:23 Pulse Ox 99 01/18/24 16:23 Oxygen Delivery Method Room Air 01/18/24 16:23 BMI result Body Mass Index 32.0 Back/Spine/Pelvis Other: Spine: No spinal tenderness. No paraspinal spasm. Straight leg raising right and left are negative. Assessment & Plan Assessment & Plan (1) Lumbar back pain: Code(s): M54.50 - Low back pain, unspecified Plan: Muscular in etiology. Nonsteroidals and muscle relaxants ordered. If symptoms do not improve to follow-up with primary care provider. Coding Level of Care Code Est Pt Level 3 (12144) Diagnoses Lumbar back pain M54.50
== END 2024-01-18 16:51 | disposition home or self-care (01) ==
PROVIDERS: PCP Nurse Practitioner Family; Visit Provider Internal Medicine
DX: M54.50 Low back pain, unspecified (principal)
CPT/HCPCS: 99213

== ENCOUNTER 2024-01-18 15:45 | Outpatient (REF) | payer OTHER, SELFPAY ==
--- NOTE | ~2024-01-18 | XR_ITS ---
EXAMINATION: XR LUMBOSACRAL SPINE CLINICAL INFORMATION: Low back pain unspecified. COMPARISON: 01/12/2020 right hip. TECHNIQUE: 3 views of the lumbosacral spine. FINDINGS: Slight leftward curvature of the lumbar spine. Bilateral sacroiliac joints are symmetrical. Spondylosis with moderate loss of disc space height at L5-S1. Facet arthritis in the lower lumbar spine. XR/XR lumbar spine 2-3V IMPRESSION: Spondylosis with moderate loss of disc space height at L5-S1.
== END 2024-01-18 15:46 | disposition home or self-care (01) ==
LOC: HO.HMGCX 15:45
PROVIDERS: PCP Nurse Practitioner Family; Visit Provider Nurse Practitioner Family
DX: M54.50 Low back pain, unspecified (principal)
CPT/HCPCS: 72100

== ENCOUNTER 2024-03-02 07:00 | Outpatient (RCR) | payer OTHER, SELFPAY ==
--- NOTE | 2024-02-10 15:40 | MHC.PT.EP ---
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 XRAY +LUMBAR SPONDYLOSIS HOWEVER Pt SEEMS TO PREFER SLIGHT FLEXION/NEUTRAL SPINE RATHER THAN FLEXION. PRESENTS WITH TIGHT HS, TIGHT LUMBAR PARASPINALS, DECREASED CORE STRENGTH, LIMITED POSTURE. SHOULD BENEFIT FROM PT TO ADDRESS THESE ISSUES. OF NOTE, Pt REPORTS RELIEF WITH TRACTION (PRESSING THROUGH UPPER BODY) SO MAY BENEFIT FROM PELVIC TX TRIAL Frequency and Duration: The patient will be seen 2X/WK X 4WKS Short Term Goals: 1. INCREASED AWARENESS POSTURE AND BACK CARE 2. NO GLUT/HIP REFERRED PAIN 3. Pt TO PERF 2-3 TASKS WITH PROPER BODY MECH Jail Goals: 1. I HEP WITH DC EX PLAN 2. INCREASED HS FLEXIBILITY 5 DEGREES B 3. DECREASED BACK PAIN AT LEAST 50% WITH ADLS Treatment Plan: Modalities to reduce pain, spasms and effusion. Manual therapy to restore motion and function. Therapeutic exercise to improve strength and flexibility. Neuromuscular re-education for posture and balance. Therapeutic activities to return to functional activities of daily living. Electronically signed by: YONY BREEN PT Please sign and return to therapist. Thank you for your referral.
--- NOTE | 2024-04-27 14:30 | MHC.PT.DC ---
[facility] [place] Office [place] Office [place] Office [address]ia Hughes [address] [phone] F: [phone] F: [phone] F: [phone] F: [phone] Physical Therapy Discharge Report Diagnosis: BACK PAIN, SPONDYLOSIS Date of Surgery: NA Date of Evaluation: 02/10/24 Date of Discharge: 04/27/24 Treatments to Date: 4 Cancellations to Date: No Shows to Date: Discharge Status: Improved Function Independent with HEP Patient Elected to Stop Discharge Summary: PER NOTE FROM LAST SESSION ON 03/02/24 GOOD FORM WITH THEREX AND STRETCHES, HAS PB AT HOME' WITH PLAN 'CONT PT X 1 REV GOALS FOR PROBABLE DC, ADD LE THEREX (WALL SLIDE) TB, STRETCH/STRENGTHEN LOWER BODY, CORE WORK, ST WORK/MODALITIES' Pt THEN NO SHOWED LAST SCHEDULED APPT [ End ] Electronically signed by: YONY BREEN PT Please sign and return to therapist. Thank you for your referral.
== END 2024-04-27 14:30 | disposition home or self-care (01) ==
LOC: HO.PTWFD 07:00
PROVIDERS: PCP Nurse Practitioner Family; Visit Provider Nurse Practitioner Family
DX: M54.50 Low back pain, unspecified (principal)
CPT/HCPCS: 97110; 97140; 97161; 97530; 97535

== ENCOUNTER 2024-03-31 07:57 | Outpatient (AMB) | payer OTHER, SELFPAY ==
--- NOTE | 2024-03-31 08:02 | A.OFFPC_ITS ---
Vital Signs 03/31/24 08:04 Height 5 ft 8 in Weight 201 lb BMI 30.6 BP 112/74 Blood Pressure Location Rt brachial Position Sitting Pulse 68 Pulse Source Pulse Oximeter Pulse Oximetry (%) 99 Oxygen Delivery Method Room Air Intake Visit Reasons: Back pain and ear ringing Allergies No Known Allergies Allergy (Verified 03/31/24 08:44) Medication List - Last Reconciled 03/31/24 by KIA Conde hydrocortisone 2.5% 1 appl CO BID-QID PRN Tobacco use date assessed: 03/31/24 Dental Screening Dental Screen Date: 03/31/24 Did you have a dental visit in the last 12 months?: Yes Did you have a dental problem in the last 6 months where you did not have access to dental care?: No Was dental information given to patient?: Patient has dentist HPI Back pain and ear ringing HPI Details Pt c/o lower back pain. XR showed spondylosis with moderate loss of disc space height at L5-S1. Pt has gone to PT for this. He reports that the pain is manageable with home PT exercises. He reports some radicular symptoms to his RLE from hip to thigh. Will order MRI. Denies any signs of cauda equina. Pt reports tinnitus. He reports that this started approximately 8-12 months ago. Recommended using a fan at night, as a detractive device. Pt reports a bump to his anus. He reports noticing this approximately once a month when he is constipated. Denies any blood in stool. Will send hydrocortisone cream. Will follow up with me if symptoms get worse. ON LICENSE OF [facility] Surgical History [place] teeth extracted Social History Housing: House Alcohol intake: current Alcohol intake frequency: a few times a week Alcohol type: beer Patient Tobacco Use Status: Never used Tobacco e-Cigarette/Vaping Use: Never Used Second Hand Smoke Exposure: No Current occupational status: employed Current occupation: rt handed/ [employer] Cognitive needs: No Hearing needs: No Vision needs: No Questionnaire PHQ-9 Over the last 2 weeks, how often have you been bothered by any of the following problems? 05631 - PHQ-9 Billing: Patient declined-do not bill Source: Developed by Drs. Ganga Cardenas, Gayla Keen, Carlos Salinas and colleagues, with an educational alexa from [employer]. Thrive Questionnaire Date Thrive assessed: 03/31/24 What is your living situation today?: I choose not to answer this question Within the past 12 months, did the food you bought not last and you didn't have the money to get more?: I choose not to answer this question Within the past 12 months, did you worry whether your food would run out before you got money to buy more?: I choose not to answer this question Do you have trouble paying for medicines?: I choose not to answer this question Do you have trouble getting transportation to medical appointments?: I choose not to answer this question Do you have trouble paying your heating and electricity bill?: I choose not to answer this question Do you have trouble taking care of your child, family member or friend?: I choose not to answer this question Do you have trouble with day-to-day activities such as bathing, preparing meals, shopping, managing finances, etc.?: I choose not to answer this question Are you currently unemployed and looking for a job?: I choose not to answer this question Are you interested in more education?: I choose not to answer this question Currently or been in a relationship where the following occur: I choose not to answer this question THRIVE Score: 0 AUDIT C Alcohol Use Questionnaire (AUDIT-C) 1. How often do you have a drink containing alcohol?: 2-3 times a week 2. How many drinks containing alcohol do you have on a typical day when you are drinking?: 1 or 2 3. How often do you have six or more drinks on one occasion?: Never Total Score: 3 Score Reviewed/Action Taken: No CASA-7 AMB Questionnaire CASA-7 Date CASA - 7 assessed: 03/31/24 Source: Developed by Drs. Ganga Cardenas, Gayla Keen, Carlos Salinas and colleagues, with an educational alexa from [employer]. CASA-7 Assessment Billing CASA-7 Assessment Tool: pt declined-do not bill Review of Systems Const Reports as per HPI Physical exam (Primary Care) Vital Signs: Last Vital Signs Pulse 68 03/31/24 08:04 BP 112/74 03/31/24 08:04 Pulse Ox 99 03/31/24 08:04 Oxygen Delivery Method Room Air 03/31/24 08:04 BMI result Body Mass Index 30.6 Tobacco/Smoking Status: Tobacco use Status Tobacco use date assessed 03/31/24 03/31/24 08:07 Patient Tobacco Use Status Never used Tobacco 03/31/24 08:04 e-Cigarette/Vaping Use Never Used 03/31/24 08:04 Currently or been in a relationship where the following occur: I choose not to answer this question Const General: cooperative Orientation/consciousness: patient oriented x3 HENMT Ears: TM's normal bilaterally Resp Effort & Inspection: normal respiratory effort Auscultation: clear to auscultation bilaterally Cardio Rate: regular rate Rhythm: regular rhythm Heart sounds: S1 normal heart sound present, S2 normal heart sound present and no murmurs GI Rectal Exam - Male: Yes other (refused exam today) Back/Spine/Pelvis Other: no pain with heel and toe walking, right knee to chest raises, and RLE raises, some pain to lower transverse back with LLE raises and left knee to chest raises Neuro General: patient oriented x3 Psych Appearance: grossly normal Mental Status: mental status grossly normal Speech and movement: Normal speech and movement present Affect: normal affect Attitude: cooperative Thought process: Normal thought process present Thought content: Normal thought content present Insight: Good insight present (Psych) Judgement: Good judgement present (Psych) Assessment and Plan Assessment & Plan (1) Lumbar back pain: Code(s): M54.50 - Low back pain, unspecified Plan: MRI ordered (2) Disc degeneration, lumbar: Code(s): M51.36 - Other intervertebral disc degeneration, lumbar region Plan: MRI ordered (3) Bilateral tinnitus: Code(s): H93.13 - Tinnitus, bilateral Plan: Recommended using a fan at night (4) Hemorrhoids: Code(s): K64.9 - Unspecified hemorrhoids Plan: Hydrocortisone cream sent, will call with any worsening symptoms Plan The patient agreed to the use of a medical imaging director for this encounter. Scribed for KIA Cheung by Tanisha Bustamante medical imaging director, on 03/31/2024 at 08:15 EST. Orders: Orders MR lumbar spine wo con Today M51.36 - Other intervertebral disc degeneration, lumbar region, M54.50 - Low back pain, unspecified Medications: New hydrocortisone 2.5% 1 appl CO BID-QID PRN 30 grams 0RF hemorrhoids Coding Level of Care Code Est Pt Level 3 (43324) Diagnoses Lumbar back pain M54.50 Disc degeneration, lumbar M51.36 Bilateral tinnitus H93.13 Hemorrhoids K64.9
[2024-03-31 08:04] VITALS: BP 112/74; PULSE 68; O2SAT 99; BMI 30.6
== END 2024-03-31 09:48 | disposition home or self-care (01) ==
PROVIDERS: PCP Nurse Practitioner Family; Visit Provider Nurse Practitioner Family
DX: M54.50 Low back pain, unspecified (principal); M51.36 Other intervertebral disc degeneration, lumbar region; H93.13 Tinnitus, bilateral; K64.9 Unspecified hemorrhoids
CPT/HCPCS: 99214

== ENCOUNTER 2024-04-06 08:30 | Outpatient (AMB) | payer OTHER, SELFPAY ==
[2024-04-06 09:37] VITALS: BP 122/80; PULSE 72; TEMP 36.4; O2SAT 98; BMI 30.6
--- NOTE | 2024-04-06 09:37 | MHC.OFFWIV ---
Intake Vital Signs 04/06/24 09:37 Height 5 ft 8 in Weight 201 lb BMI 30.6 BP 122/80 Blood Pressure Location Lt brachial Position Sitting Pulse 72 Pulse Source Pulse Oximeter Temp 97.5 F Temp Source Temporal Artery Scan Pulse Oximetry (%) 98 Oxygen Delivery Method Room Air Intake Visit Reasons: EST/right hand finger injury([phone]) Intake Note: pt is here today for rt hand finger injury started thursday Patient Tobacco Use Status: Never used Tobacco Allergies No Known Allergies Allergy (Verified 04/06/24 09:45) Do you need a note to return to daycare/school/sports/work: No HPI EST/right hand finger injury([phone]) HPI Details This is a 39-year-old male patient who presents today with a right middle finger injury. States that this past Thursday, he was hammering a nail in with a crowbar, and punched his hand straight down onto the head of the nail. This punctured his skin and has since resulted in a swollen and painful finger. He does have some mild range of motion in that finger however it is painful. He works at [employer] and wants to make sure he is ok to return to work. States he is up to date on Tetanus per records. [facility] Surgical History [place] teeth extracted Social History Housing: House Alcohol intake: current Alcohol intake frequency: a few times a week Alcohol type: beer Patient Tobacco Use Status: Never used Tobacco e-Cigarette/Vaping Use: Never Used Second Hand Smoke Exposure: No Current occupational status: employed Current occupation: rt handed/ [employer] Cognitive needs: No Hearing needs: No Vision needs: No Review of Systems Const All systems reviewed & are unremarkable except as noted in HPI and below Physical Exam Vital Signs: Last Vital Signs Temp 97.5 F 04/06/24 09:37 Pulse 72 04/06/24 09:37 BP 122/80 04/06/24 09:37 Pulse Ox 98 04/06/24 09:37 Oxygen Delivery Method Room Air 04/06/24 09:37 BMI result Body Mass Index 30.6 Const General: cooperative, healthy appearing and no acute distress Resp Effort & Inspection: normal respiratory effort Skin General skin exam: no rashes or lesions noted Extrem Right upper extremity: Extremity exam: right hand Details: normal capillary refill, tenderness Location: of the 3rd digit Location: at the middle phalanx and on the dorsal aspect, vascular exam Details: radial pulse present, ulnar pulse present and normal capillary refill and abnormal ROM of finger Details: pain with active ROM Location: of the 3rd digit and unable to flex Location: of the 3rd digit Psych Appearance: grossly normal Mental Status: mental status grossly normal Speech and movement: Normal speech and movement present Assessment & Plan Assessment & Plan (1) Injury of right middle finger: Code(s): S69.91XA - Unspecified injury of right wrist, hand and finger(s), initial encounter Qualifiers: Encounter type: initial encounter Qualified Code(s): S69.91XA - Unspecified injury of right wrist, hand and finger(s), initial encounter Plan: Swelling and tenderness of dorsal aspect of middle phalanx, with small scabbed puncture site (from nail) on dorsal aspect of finger. XR does not reveal any fracture or foreign body. Splint and wrap applied to finger. Advised ice and NSAIDs as needed. Patient declined TDAP - states he is up to date with vaccines. Advised to return if pain/swelling worsens or if he develops any signs of infection such as warmth, redness, or drainage from puncture site. He agrees to plan. Orders: Orders XR finger RT min 2V Today S69.91XA - Unspecified injury of right wrist, hand and finger(s), initial encounter Coding Level of Care Code Est Pt Level 4 (11565) Diagnoses Injury of right middle finger, initial encounter S69.91XA Encounter type: initial encounter
== END 2024-04-06 10:43 | disposition home or self-care (01) ==
PROVIDERS: PCP Nurse Practitioner Family; Visit Provider Nurse Practitioner Family
DX: S69.91XA Unspecified injury of right wrist, hand and finger(s), initial encounter (principal)
CPT/HCPCS: 99214

== ENCOUNTER 2024-04-06 10:03 | Outpatient (REF) | payer OTHER, SELFPAY ==
--- NOTE | ~2024-04-06 | XR_ITS ---
EXAMINATION: XR FINGER, RIGHT CLINICAL INFORMATION: Pain. COMPARISON: None available. TECHNIQUE: Three views of the right long finger. FINDINGS: The bones and soft tissues are normal. No fracture. Alignment is anatomic. Joint spaces are maintained. XR/XR finger RT min 2V IMPRESSION: Normal finger radiographs.
== END 2024-04-06 10:04 | disposition home or self-care (01) ==
LOC: HO.HMGCX 10:03
PROVIDERS: PCP Nurse Practitioner Family; Visit Provider Nurse Practitioner Family
DX: S69.91XA Unspecified injury of right wrist, hand and finger(s), initial encounter (principal)
CPT/HCPCS: 73140

== ENCOUNTER 2024-05-03 11:14 | Outpatient (AMB) | payer OTHER, SELFPAY ==
--- NOTE | 2024-05-03 11:21 | A.OFFVIS_ITS ---
Vital Signs 05/03/24 11:29 Height 5 ft 10 in Weight 208 lb BMI 29.8 BP 124/80 Blood Pressure Location Lt brachial Position Sitting Pulse 61 Pulse Source Pulse Oximeter Pulse Oximetry (%) 97 Oxygen Delivery Method Room Air Intake Visit Reasons: [id number] Intake Note: Patient presents for ANIKET. Snoring more than usual. Breathing through mouth. 3x times at night wakes up Allergies No Known Allergies Allergy (Verified 05/03/24 11:28) Medication List - Last Reconciled 05/03/24 by SMOOTH Lange No Known Home Meds HPI Comments Details: 39-yr-old male presents for new in-person patient visit for sleep consultation. Patient reports he has been told his snoring is getting louder. He generally feels he has restricted airflow through his nose, which causes him to open his mouth to breathe. Sleep questionnaire: Have you ever been diagnosed with a sleep disorder? No Have you ever had a sleep study in the past? No Have you ever been treated for a sleep disorder? No Do you take medications for a sleep disorder? No Do you have difficulty initiating sleep? No Do you have difficulty maintaining sleep? Yes Wakes up 3 x's per night. Do you wake up tired? No Do you have episodes of apneas? No Do you have episodes of nocturnal chest pain or dyspnea? No Do you have bruxism? In the past. Do you have headaches upon awakening? no Do you wake up with dry mouth or throat? sometimes Do you have GERD? No Do you have nocturia? no Do you have nocturnal leg cramps? No Do you have symptoms of restless legs? No Do you act out your dreams? No Do you have sleep paralysis? No Do you have drop attacks? No Do you ever have hypnogenic hallucinations? No Hypersomnolence questionnaire: Have you ever had episodes of sudden weakness? No Have you ever had episodes of sudden weakness associated with strong emotions? No Sleep hygiene questionnaire: What is your usual sleep routine? Usual bedtime is at 10-11 pm; Usual wake-up time is at 6am. Do you take naps? none Is your sleep environment cool, dark, and quiet? yes Do you exercise? 3-5 times per week- 3 days cross fit, the other days stretching. Do you take caffeine or other stimulants? 1-2 cups of coffee in the am. Coffee or energy drink after lunch. Do you use electronics in bed? Sometimes the phone at night What is your work schedule? 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 PFSH Surgical History [place] teeth extracted Social History Housing: House Alcohol intake: current Alcohol intake frequency: a few times a week Alcohol type: beer Patient Tobacco Use Status: Never used Tobacco e-Cigarette/Vaping Use: Never Used Second Hand Smoke Exposure: No Current occupational status: employed Current occupation: rt handed/ [employer] Cognitive needs: No Hearing needs: No Vision needs: No Physical Exam Vital Signs: Last Vital Signs Pulse 61 05/03/24 11:29 BP 124/80 05/03/24 11:29 Pulse Ox 97 05/03/24 11:29 Oxygen Delivery Method Room Air 05/03/24 11:29 BMI result Body Mass Index 29.8 Const General: no acute distress Orientation/consciousness: patient oriented x3 HEENT Other: Mallampati stage 3 Resp Effort & Inspection: normal respiratory effort and able to speak in complete sentences Cardio Rate: regular rate Rhythm: regular rhythm Heart sounds: S1 normal heart sound present and S2 normal heart sound present Neuro General: patient oriented x3 Psych Mental Status: mental status grossly normal Speech and movement: Clear speech present Attitude: cooperative Assessment & Plan Assessment & Plan (1) Snoring: Code(s): R06.83 - Snoring Category: Medical (2) Excessive daytime sleepiness: Code(s): G47.19 - Other hypersomnia Category: Medical (3) Sleep difficulties: Code(s): G47.9 - Sleep disorder, unspecified Category: Medical Plan Pt is advised to undergo sleep study to assess for sleep apnea: HST Information shared on resources to optimize sleep hygiene. Will f/u with pt after study to discuss results and appropriate treatment options. Pt to call with any worsening concerns or questions. Orders: Orders RT home sleep study Today G47.19 - Other hypersomnia, G47.9 - Sleep disorder, unspecified, R06.83 - Snoring Coding Level of Care Code New Pt Level 3 (79247) Diagnoses Snoring R06.83 Excessive daytime sleepiness G47.19 Sleep difficulties G47.9 [place] Sleepiness Scale Questions Sitting and reading: high chance of dozing Watching TV: would never doze Sitting inactive in a theater, movie etc.: slight chance of dozing As a passenger in a car for an hour without break: high chance of dozing Lying down in the afternoon when circumstances permit: moderate chance of dozing Sitting and talking to someone: would never doze Sitting quietly after lunch without alcohol: moderate chance of dozing In a car, while stopped for a few minutes in the traffic: would never doze ESS < 10: normal, ESS > 12: pathologic: 11
[2024-05-03 11:29] VITALS: BP 124/80; PULSE 61; O2SAT 97; BMI 29.8
== END 2024-05-03 12:16 | disposition home or self-care (01) ==
PROVIDERS: PCP Nurse Practitioner Family; Visit Provider Nurse Practitioner Family
DX: R06.83 Snoring (principal); G47.19 Other hypersomnia; G47.9 Sleep disorder, unspecified
CPT/HCPCS: 99203

== ENCOUNTER → 2024-05-03 11:14 | Outpatient (BNVA) | payer OTHER, SELFPAY | PROVIDERS: PCP Nurse Practitioner Family; Visit Provider Nurse Practitioner Family | DX: R06.83 Snoring (principal); G47.19 Other hypersomnia; G47.9 Sleep disorder, unspecified | CPT/HCPCS: 99202 ==

== ENCOUNTER 2024-05-16 07:15 | Outpatient (REF) | payer OTHER, SELFPAY ==
--- NOTE | ~2024-05-16 | MR_ITS ---
EXAMINATION: MR LUMBAR SPINE WITHOUT CONTRAST CLINICAL INFORMATION: 39-year-old with low back pain and right buttock pain. COMPARISON: None available. TECHNIQUE: MRI of the lumbar spine was obtained using routine sequences without contrast. FINDINGS: Coronal Alignment: Trace mid lumbar levocurvature is noted. Sagittal Alignment: Normal. Lumbosacral Junction: Normal. There are 5 [id number] lumbar-type vertebral bodies. Vertebral Bodies: Vertebral body heights are well-maintained. Disc Spaces and Endplates: There is moderate disc volume loss at L5-S1 with [id number] loss of intradiscal T2-weighted signal at this level consistent with disc degenerative change. The remaining lumbar and visualized lower thoracic intervertebral disc space heights and signal are well-maintained without significant spondylosis. Endplates appear intact. Spinal Canal: No abnormal developmental findings. Bone Marrow: No suspicious marrow-replacing process or bone marrow edema. Possible mild focal trace marrow edema in the posterior aspect of the left sacral alum adjacent to the SI joint versus artifact. Conus Medullaris: Terminates at L1. Morphology and signal is normal. Intradural Nerve Roots: Within normal limits. L5-S1: Shallow broad-based central to right paramedian disc protrusion noted, with encroachment on the right S1 nerve root with slight indentation of the central portion of the ventral thecal sac. Underlying disc bulging is also noted, which contacts the left S1 nerve root. No significant spinal canal stenosis. No significant facet joint arthropathy. Mild foraminal narrowing is noted bilaterally. The remaining lumbar levels demonstrate normal annular contours without significant facet joint arthrosis, canal or neural foraminal stenosis. There is minimal STIR signal hyperintensity within the L2-L3 interspinous ligament, which is nonspecific but could reflect a low-grade ligament sprain. Paravertebral and Included Extraspinal Soft Tissues: The visualized paravertebral soft tissues and included retroperitoneal structures are unremarkable within the limitations of the exam. MR/MR lumbar spine wo con IMPRESSION: 1. Discogenic degenerative changes at L5-S1 with a shallow broad-based [id number]-[id number] paramedian disc protrusion encroaching on the traversing right S1 nerve root and mild disc bulging at this level with mild bilateral foraminal narrowing. 2. Possible low-grade ligament sprain of the L2-L3 interspinous ligament. 3. Trace focal marrow edema in the posterior aspect of the left sacral alum adjacent to the SI joint versus artifact. Significance uncertain. Follow up clinically.
== END 2024-05-16 07:16 | disposition home or self-care (01) ==
LOC: HO.MRI 07:15
PROVIDERS: PCP Nurse Practitioner Family; Visit Provider Nurse Practitioner Family
DX: M54.50 Low back pain, unspecified (principal); M51.36 Other intervertebral disc degeneration, lumbar region
CPT/HCPCS: 72148

== ENCOUNTER → 2024-06-13 07:52 | Outpatient (REF) | payer OTHER, SELFPAY | LOC: HO.SL 07:52 | PROVIDERS: Visit Provider Nurse Practitioner Family | DX: G47.9 Sleep disorder, unspecified (principal); G47.19 Other hypersomnia; R06.83 Snoring | CPT/HCPCS: 95806 ==

== ENCOUNTER → 2024-06-13 08:02 | Outpatient (BNV) | payer OTHER, SELFPAY | PROVIDERS: Visit Provider Psychiatry & Neurology Neurology | DX: R06.83 Snoring (principal) | CPT/HCPCS: 95806 ==

== ENCOUNTER 2024-09-12 08:18 | Outpatient (AMB) | payer OTHER, SELFPAY ==
--- NOTE | 2024-09-12 08:27 | AM.OFFWIN_ITS ---
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 He states this pain has been present for the last week. He tells me he has chronic low back pain and every now and then it flares up like this. He tells me he has tried getting a referral for physical therapy but has had issues getting it scheduled. He has tried taking meloxicam and cyclobenzaprine which gives him temporary relief in his symptoms. He denies any loss of control of bladder or bowels. He is also asking me to fill out paperwork to put him on a restricted duty while he is dealing with his back pain and going to physical therapy. [facility] Surgical History [place] teeth extracted Social History Housing: House Alcohol intake: current Alcohol intake frequency: a few times a week Alcohol type: beer Patient Tobacco Use Status: Never used Tobacco e-Cigarette/Vaping Use: Never Used Second Hand Smoke Exposure: No Current occupational status: employed Current occupation: rt handed/ [employer] Cognitive needs: No Hearing needs: No Vision needs: No Review of Systems Const All systems reviewed & are unremarkable except as noted in HPI and below Physical Exam Vital Signs: Last Vital Signs Temp 97.9 F 09/12/24 08:33 Pulse 73 09/12/24 08:33 BP 124/66 09/12/24 08:33 Pulse Ox 98 09/12/24 08:33 Oxygen Delivery Method Room Air 09/12/24 08:33 BMI result Body Mass Index 28.7 Const General: cooperative, healthy appearing and comfortable Orientation/consciousness: patient oriented x3 HEENT Head: Yes normal to inspection and Yes normocephalic General nose exam: Normal external nose present Face and sinus: Yes normal facial exam Eyes General: appearance normal, both eyes and all related structures Resp Effort & Inspection: normal respiratory effort and able to speak in complete sentences Back/Spine/Pelvis Cervical Spine: normal cervical lordosis, cervical ROM normal and No Cervical spine tenderness Thoracic/Lumbar Spine: thoracic and lumbar spine normal to inspection, pain with thoraco-lumbar ROM, thoraco-lumbar ROM limited (Secondary to pain), No thoracic spinal tenderness, No lumbar spinal tenderness and straight leg raise positive (right side) Neuro General: patient oriented x3 Extrem Other: Straight leg raise test negative on right; Straight leg raise test negative on left; Reflexes normal ankle and knee bilaterally; motor strength normal bilaterally Assessment & Plan Assessment & Plan (1) Lumbar back pain: Code(s): M54.50 - Low back pain, unspecified Plan: Recommended 5 days of prednisone, can continue meloxicam and cyclobenzaprine if needed. Could also add a Salonpas patch. Recommended if he loses control of his bladder or bowels that he go to the emergency room immediately. Filled out paperwork for the to put him on a restricted duty until 10/12/2024. (2) Disc degeneration, lumbar: Code(s): M51.36 - Other intervertebral disc degeneration, lumbar region Qualifiers: Disc-related pain type: discogenic back pain and lower extremity pain Qualified Code(s): M51.362 - Other intervertebral disc degeneration, lumbar region with discogenic back pain and lower extremity pain Plan: Printed out physical therapy referral with his MRI and x-ray results so he may go to the physical therapy office and schedule himself some appointments to get started on physical therapy Plan See above Medications: New prednisone 20 mg PO QAM 5 tabs 0RF Coding Level of Care Code Est Pt Level 4 (93305) Diagnoses Lumbar back pain M54.50 Degeneration of intervertebral disc of lumbar region with discogenic back pain and lower extremity pain M51.362 Disc-related pain type: discogenic back pain and lower extremity pain
[2024-09-12 08:33] VITALS: BP 124/66; PULSE 73; TEMP 36.6; O2SAT 98; BMI 28.7
== END 2024-09-12 09:23 | disposition home or self-care (01) ==
PROVIDERS: Visit Provider Physician Assistant
DX: M54.50 Low back pain, unspecified (principal); M51.362 Other intervertebral disc degeneration, lumbar region with discogenic back pain and lower extremity pain

== ENCOUNTER → 2024-09-12 08:18 | Outpatient (BNVA) | payer OTHER, SELFPAY | PROVIDERS: Visit Provider Physician Assistant | DX: M54.50 Low back pain, unspecified (principal); M51.362 Other intervertebral disc degeneration, lumbar region with discogenic back pain and lower extremity pain | CPT/HCPCS: 99212 ==

== ENCOUNTER 2025-01-12 08:39 | Outpatient (AMB) | payer OTHER, SELFPAY ==
--- NOTE | 2025-01-12 08:51 | A.OFFPC_ITS ---
Vital Signs 01/12/25 08:53 Height 5 ft 10 in Weight 207 lb BMI 29.7 BP 122/70 Blood Pressure Location Lt brachial Position Sitting Pulse 77 Pulse Source Pulse Oximeter Temp 97.9 F Temp Source Oral Pulse Oximetry (%) 99 Intake Visit Reasons: PE Intake Note: pt is here for PE Allergies No Known Allergies Allergy (Verified 01/12/25 08:53) Medication List - Last Reconciled 01/12/25 by AUSTIN Conde No Known Home Meds Tobacco use date assessed: 01/12/25 Dental Screening Dental Screen Date: 01/12/25 Did you have a dental visit in the last 12 months?: Yes Did you have a dental problem in the last 6 months where you did not have access to dental care?: No Was dental information given to patient?: Patient has dentist HPI PE HPI Details History of Present Illness The patient is a 39-year-old male presenting for a clinical examination. He did not report any acute or chronic symptoms during the consultation. Specifically, the patient denied having chest or abdominal pain, respiratory issues, changes in bowel habits, or any mental health concerns such as anxiety or depression. He also affirmed the absence of suicidal or homicidal thoughts. The purpose of the visit was oriented towards routine health evaluation with no specific complaints raised by the patient. Health Maintenance - Patient instructed to obtain fasting l abs in the near future. Social History Review of Systems - Cardiovascular: Denies chest pain. - Respiratory: Denies shortness of breat h. - Gastrointestinal: Denies abdominal bridger n, blood in stool, constipation, and diarrhea. - Psychiatric: Denies ongoing anxiety, d epression, suicidal ideation, and homicidal ideation. Physical Exam General: Cooperative, healthy appearing, comfortable, no acute distress and well developed Orientation: Patient oriented x3 Limitations: No limitations Head: Normal to inspection Ears: Hearing grossly normal bilaterally Nose: Normal external nose present Face and sinus: Normal facial exam Eyes: Appearance normal, both eyes and all related structures Neck: Normal visual inspection and Yes full ROM Respiratory: Lungs were clear. Normal respiratory effort and able to speak in complete sentences. Clear to auscultation bilaterally Cardiovascular: Regular rate and rhythm. Normal S1 and S2 GI: Normal to inspection. Soft to palpation and nontender Skin: No rashes or lesions noted Neuro: Patient oriented x3 Extremities: Normal to inspection Results Plan The patient is advised to have fasting laboratory tests completed in the near future. These tests will aid in evaluating the patient's metabolic and overall health status. Pending the results, any necessary actions or additional recommendations will be discussed. Discussion Notes I discussed with the patient the importance of routine fasting laboratory tests, as they can provide valuable information regarding any underlying health conditions that might not present with symptoms. I explained that these results will guide future management decisions. The patient was agreeable to having the labs done. I also reassured the patient that his current physical exam showed no abnormalities and encouraged him to reach out sooner should he experience any new symptoms or concerns. Patient Instructions - Schedule a fasting laboratory test as soon as possible. - Monitor for any new symptoms and repor t them promptly. - Follow up with the lab results for fur ther discussion. [facility] Surgical History [place] teeth extracted Social History Housing: House Alcohol intake: current Alcohol intake frequency: a few times a week Alcohol type: beer Patient Tobacco Use Status: Never used Tobacco e-Cigarette/Vaping Use: Never Used Second Hand Smoke Exposure: No Current occupational status: employed and retired Current occupation: [employer]/ [employer] Current occupational exposures/hazards: No Cognitive needs: No Hearing needs: No Vision needs: No Questionnaire PHQ-9 Over the last 2 weeks, how often have you been bothered by any of the following problems? 1. Little interest or pleasure in doing things: not at all 2. Feeling down, depressed, or hopeless: not at all 3. Trouble falling or staying asleep, or sleeping too much: several days 4. Feeling tired or having little energy: several days 5. Poor appetite or overeating: several days 6. Feeling bad about yourself - or that you are a failure or have let yourself or your family down: not at all 7. Trouble concentrating on things, such as reading the newspaper or watching television: not at all 8. Moving or speaking so slowly that other people could have noticed. Or the opposite - being so fidgety or restless that you have been moving around a lot more than usual: not at all 9. Thoughts that you would be better off or of hurting yourself in some way: not at all Total score: 3 Depression Screening Interpretation: Negative Depression Screening Done: Yes 99714 - PHQ-9 Billing: Yes Source: Developed by Drs. Ganga Cardenas, Gayla Keen, Carlos Salinas and colleagues, with an educational alexa from [employer]. Thrive Questionnaire Date Thrive assessed: 01/12/25 I am a: Patient What is your living situation today?: I have a steady place to live Within the past 12 months, did the food you bought not last and you didn't have the money to get more?: I choose not to answer this question Within the past 12 months, did you worry whether your food would run out before you got money to buy more?: I choose not to answer this question Do you have trouble paying for medicines?: I choose not to answer this question Do you have trouble getting transportation to medical appointments?: I choose not to answer this question Do you have trouble paying your heating and electricity bill?: I choose not to answer this question Do you have trouble taking care of your child, family member or friend?: I choose not to answer this question Do you have trouble with day-to-day activities such as bathing, preparing meals, shopping, managing finances, etc.?: I choose not to answer this question Are you currently unemployed and looking for a job?: I choose not to answer this question Are you interested in more education?: I choose not to answer this question Please select the resources that you would like help with: None Currently or been in a relationship where the following occur: I choose not to answer THRIVE Score: 0 AUDIT C Alcohol Use Questionnaire (AUDIT-C) 1. How often do you have a drink containing alcohol?: 2-3 times a week 2. How many drinks containing alcohol do you have on a typical day when you are drinking?: 3 or 4 3. How often do you have six or more drinks on one occasion?: Monthly Total Score: 6 Score Reviewed/Action Taken: Yes CASA-7 AMB Questionnaire CASA-7 Date CASA - 7 assessed: 01/12/25 Feeling nervous, anxious, or on edge: 0 = Not at all Not being able to stop or control worryin = Not at all Worrying too much about different things: 1 = Several days Trouble relaxin = Not at all Being so restless that it is hard to sit still: 0 = Not at all Becoming easily annoyed or irritable: 0 = Not at all Feeling afraid as if something awful might happen: 0 = Not at all Total CASA-7 score (0-4 normal; 5-9 mild; 10-14 moderate; 15-21 severe): 1 Source: Developed by Drs. Ganga Cardenas, Gayla Keen, Carlos Salinas and colleagues, with an educational alexa from [employer]. CASA-7 Assessment Billing CASA-7 Assessment Tool: CASA-7 Assessment 17855 Physical exam (Primary Care) Vital Signs: Last Vital Signs Temp 97.9 F 01/12/25 08:53 Pulse 77 01/12/25 08:53 BP 122/70 01/12/25 08:53 Pulse Ox 99 01/12/25 08:53 BMI result Body Mass Index 29.7 Tobacco/Smoking Status: Tobacco use Status Tobacco use date assessed 01/12/25 01/12/25 08:57 Patient Tobacco Use Status Never used Tobacco 01/12/25 08:52 e-Cigarette/Vaping Use Never Used 01/12/25 08:52 PHQ-9: PHQ-9 Score PHQ-9: Total score 3 01/12/25 08:57 Depression Screening Interpretation: Negative Thrive Assessment: Date of Thrive Assessment Date Thrive assessed 01/12/25 01/12/25 08:57 Currently or been in a relationship where the following occur: I choose not to answer Coding Level of Care Code Est Pt Prev Care 18-39y(02198) Diagnoses Physical exam Z00.00 Additional Codes CASA-7 Assessment Billing - CASA-7 Assessment Tool: CASA-7 Assessment 67173 ([id number]) PHQ-9 - 24484 - PHQ-9 Billing: Yes ([id number]) Assessment & Plan Assessment & Plan (1) Physical exam: Code(s): Z00.00 - Encounter for general adult medical examination without abnormal findings Category: Medical Plan . Orders: Orders Comprehensive [place]. Panel Fast Today Z00.00 - Encounter for general adult medical examination without abnormal findings Complete Blood Count Auto Diff Today Z00.00 - Encounter for general adult medical examination without abnormal findings TSH reflex Free T4 Today Z00.00 - Encounter for general adult medical examination without abnormal findings UA CC w/rflx Micro + Cult Today Z00.00 - Encounter for general adult medical examination without abnormal findings Lipid Panel Today Z00.00 - Encounter for general adult medical examination without abnormal findings
[2025-01-12 08:53] VITALS: BP 122/70; PULSE 77; TEMP 36.6; O2SAT 99; BMI 29.7
--- OUTSIDE RECORDS SUMMARY | 2025-01-12 09:11 | XMS_ITS | Continuity of Care Document ---
Author Name [facility] Organization [facility] Care Team Providers Care Election Judge Name Role Phone [facility] Unavailable Unavailable Problems Combined list of problems from 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 It does not include entries that were removed or entered in error. Problem Status Onset Date Problem Type Date of Resolution Comments Source Encounter for examination and observation for other specified reasons Active Diagnosis [facility]35C-[facility] [place] Episodic tension-type headache Active Condition Jan 07, 2024 Entered By: NICOLAS PENNINGTON Comment: Average Twice Week; No Red Flags ; No Aura; No Consistent Triggers;Jan 07, 2024 Entered By: NICOLAS PENNINGTON Comment: APAP Relieves [place] Exposure to potentially hazardous substance Active Condition Jan 07, 2024 Entered By: NICOLAS PENNINGTON Comment: [place]; also Ionized Radiation [place] Low back pain Active Condition Dec Entered By: NICOLAS PENNINGTON Comment: Non-Radicular LBP; No Direct Trauma; Gradual Onset Over Time in [facility] Pain in right hip joint Active Condition Jan 07, 2024 Entered By: NICOLAS PENNINGTON Comment: No Acute Hip Injuries; PT Abates Pain; Onset Over the Years in [facility] Recurrent dislocation of shoulder region Active Condition Feb 10, 2024 Entered By: YARED DUMONT Comment: right [facility] Rupture of anterior cruciate ligament Active Condition Jan 07, 2024 Entered By: NICOLAS PENNINGTON Comment: Complete Tear ACL, L Knee; Tear Demonstrated on MRI approx 2023 Entered By: NICOLAS PENNINGTON Comment: No Acute Tear of ACL; Gradual Onset Over Yrs in the [facility] Tinnitus Active Condition Dec Entered By: NICOLAS PENNINGTON Comment: 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[place] Under care of multiple providers Active Condition Feb 09 Entered By: YARED DUMONT Comment: community PCP Nicolas Ngo, [facility] gastroenteritis Active Condition DoD nausea Inactive Condition DoD Outpatient Physician Consultation Active Condition DoD visit for: examination for sports competition Inactive Condition DoD open wound Inactive Condition DoD joint instability shoulder region Active Condition DoD Shoulder Instability Active Condition DoD subluxation shoulder joint anterior right Inactive Condition [facility] visit for: administrative purpose Inactive Condition DoD Patient Education - Injury Prevention Active Condition DoD nonallopathic lesions upper extremities Active Condition DoD joint pain, localized in the shoulder Active Condition DoD shoulder dislocation right Inactive Condition DoD shoulder dislocation Inactive Condition DoD joint pain, localized in the knee Inactive Condition DoD Other Physical Therapy Active Condition DoD joint pain, localized in the wrist Active Condition DoD closed fracture radius and ulna distal end Active Condition DoD Nodules - Subcutaneous Active Condition DoD physical trauma while skiing Inactive Condition DoD fracture of radius distal end closed Inactive Condition DoD visit for: occupational health / fitness exam Inactive Condition DoD routine ophthalmological exam Inactive Condition DoD urethritis chlamydia trachomatis Inactive Condition DoD pain during urination (dysuria) Inactive Condition [facility] assessment of patient condition work status Inactive Condition DoD visit for: services flight physical Active Condition DoD proctalgia Active Condition will try meds for topical releif. no thrombosed roids DoD visit for: issue medical certificate fitness Inactive Condition DoD Patient Counseling: Inactive Condition Alexis protocol for rectal pain referenced. Patient given home care instructions. Instructed to contact [facility] clinic if pain becomes severe, fever or bleeding. Appointment made for patient to see a provider. Patient verbalizes understanding and is agreeable with plan. [facility] review of immunization history Inactive Condition DoD Need For Vaccination Against Smallpox Inactive Condition [facility] visit for: services physical Inactive Condition See SF 507 and SF 600 dated 24 May 2008.No medical concerns identified. Low risk for CHD. Pt counseled on safe sex practices.No PDI. No PRP suspension. Member march. DoD upper respiratory infection Inactive Condition DoD refractive error - myopia Active Condition DoD Diagnosis: ICD-10-CM M54.59 Other low back pain Active Diagnosis [facility] Diagnosis: ICD-10-CM M25.561 Pain in right knee Active Diagnosis [facility] Diagnosis: ICD-10-CM Z71.89 Other specified counseling Active Diagnosis [facility] Diagnosis: ICD-10-CM M54.50 Low back pain, unspecified Active Diagnosis [place] Medications Combined list of outpatient medications from 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Medications provided include 1) outpatient medications from the last 15 months, and 2) patient-reported medications. Medication Details Route Status Patient Instructions Prescription Expires Prescription Number Last Dispense Date Ordering Provider Order Date Order Qty Source CYCLOBENZAP RINE HCL (cyclobenza livia HCl), 10 MG, TABLET, ORAL, TEVA [place], 1000 ea. BOTTLE Cancele d [id number] : 2023 0 Pharmac y Data Transac tion Service Facilit y HYDROCORTIS ONE (hydrocorti sone), 2.5 %, CRM/PE KAMILLA, TOPICAL, ANI PHARMACEUTI , 30 g TUBE Cancele d [id number] : 2023 0 Pharmac y Data Transac tion Service Facilit y Meloxicam (Meloxicam) , 15mg, Tablet, Oral, [place] Pharmac, 1000 Ea. Bottle Active [id number] 2023 14 Pharmac y Data Transac tion Service Facilit y Allergies, Adverse Reactions, Alerts Combined list of allergies from 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 It does not include entries that were removed or entered in error. Substance Category Reaction Severity Reaction type Status Date Reported Comments Source No Known Allergies Drug allergy (disorder) active 10/17/2013 DoD Immunizations Combined list of available immunizations from the 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 Immunization Series Date Given Administered By Site Reaction Lot Number CVX Code Drug Professor Of Biblical Studies Status Comments Source INFLUENZA, UNSPECIFIED FORMULATION 2022 88 [facility] influenza, injectable, quadrivalent- pf 2021 [id number] GlaxoSmithKli ne complet ed influenza , injectabl e, quadrival ent-pf 09/10/22 Given Ambulat ory Pharmac y tetanus, diphtheria, acellular pertu is 2020 [id number] sanofi pasteur complet ed tetanus, diphtheri a, acellular pertussis 09/13/21 Given Ambulat ory Pharmac y TDAP 2020 115 complet ed [facility] influenza, injectable, quadrivalent, preservative free 2020 NEYDA, () Not Given influenza , injectabl e, quadrival ent, preservat juan free DoD COVID Vaccine Moderna 2020 [id number] complet ed COVID Vaccine Moderna 01/04/21 Given Ambulat ory Pharmac y COVID-19 (MODERNA), MRNA, LNP-S, PF, 100 MCG/0.5ML DOSE OR 50 MCG/0.25ML DOSE 2 2020 207 complet ed [facility] COVID-19 (PFIZER), MRNA, LNP-S, PF, 30 MCG/0.3 ML DOSE 2 2020 208 complet ed [facility] COVID Vaccine Moderna 2020 [id number] 207 complet ed COVID Vaccine Moderna 12/04/20 Given Ambulat ory Pharmac y COVID-19 (MODERNA), MRNA, LNP-S, PF, 100 MCG/0.5ML DOSE OR 50 MCG/0.25ML DOSE 1 2020 207 complet ed [facility] [place] [facility] [place] [facility] COVID-19 (PFIZER), MRNA, LNP-S, PF, 30 MCG/0.3 ML DOSE 1 2020 208 complet ed [facility] influenza, injectable, quadrivalent, preservative free 2019 ONEL, () Not Given influenza , injectabl e, quadrival ent, preservat juan free [facility] measles/mumps /rubella virus vaccine 2019 [id number] Merck [employer] Company Inc complet ed measles/m umps/rube lla virus vaccine 12/13/19 Given Ambulat ory Pharmac y meningococcal A,C,Y,W-135 (MCV4P) 2019 [id number] 114 sanofi pasteur complet ed meningoco ccal A,C,Y,W-1 35 (MCV4P) 12/13/19 Given Ambulat ory Pharmac y typhoid Vi capsular polysaccharid e vac 2019 [id number] 101 sanofi pasteur complet ed typhoid Vi capsular polysacch aride vac 12/13/19 Given Ambulat ory Pharmac y influenza, injectable, quadrivalent- pf 2018 [id number] 150 Seqirus complet ed influenza , injectabl e, quadrival ent-pf 10/12/19 Given Ambulat ory Pharmac y influenza, seasonal, injectable 2017 [id number] 141 Se[employer]irus complet ed influenza , seasonal, injectabl e 09/01/18 Given Ambulat ory Pharmac y influenza, injectable, quadrivalent- pf 2017 150 Se[employer]irus complet ed influenza , injectabl e, quadrival ent-pf 09/01/18 Given Ambulat ory Pharmac y Influenza, inj, MDCK, quadrivalent- pf 2016 [id number] 171 Se[employer]irus complet ed Influenza , inj, MDCK, quadrival ent-pf 10/26/17 Given Ambulat ory Pharmac y Influenza, injectable, Madin Elyse Canine Kidney, preservative free, quadrivalent 15 2016 [id number] 171 Seqirus (SEQ) comple t ed Influenza , injectabl e, Madin Parker Canine Kidney, preservat juan free, quadrival ent DoD influenza, seasonal, injectable 2015 [id number] 141 Seqirus complet ed influenza , seasonal, injectabl e 08/12/16 Given Ambulat ory Pharmac y Influenza, seasonal, injectable 0 2015 [id number] 141 Seqirus (SEQ) comple t ed Influenza , seasonal, injectabl e DoD influenza, live, intranasal,qu adrivalent 2014 [id number] [employer] Inc [facility] t ed influenza , live, intranasa l,quadriv alent 08/31/15 Given Ambulat ory Pharmac y influenza, live, intranasal, quadrivalent 13 2014 [id number] 149 CellCap Technologies, Inc. (MED) complet ed influenza , live, intranasa l, quadrival ent DoD rabies vaccine, IM 2014 [id number] 175 Novartis Pharmaceutica ls complet ed rabies vaccine, IM 03/22/15 Given Ambulat ory Pharmac y rabies vaccine, for intramuscular injection RETIRED CODE 3 2014 [id number] 18 Novartis Pharmaceutica l [place]. (NOV) complet ed rabies vaccine, for intramusc ular injection RETIRED CODE DoD [facility] Encephalitis IM 2014 [id number] 134 Valneva complet ed [place] [facility] Encephali tis IM 01/05/15 Given Ambulat ory Pharmac y [place] [facility] Encephalitis vaccine for intramuscular administratio n 3 2014 [id number] 0E 134 [employer] (INT) complet ed [place] [facility] Encephali tis vaccine for intramusc ular administr ation DoD influenza, live, intranasal,qu adrivalent 2013 [id number] 149 Trihealthune Inc comple t ed influenza , live, intranasa l,quadriv alent 08/24/14 Given Ambulat ory Pharmac y influenza, live, intranasal, quadrivalent 1 2013 [id number] 149 [facility] (MED) complet ed influenza , live, intranasa l, quadrival ent DoD [place] [facility] Encephalitis IM 2012 [id number] 134 Valneva complet ed [place] [facility] Encephali tis IM 08/11/13 Given Ambulat ory Pharmac y [place] [facility] Encephalitis vaccine for intramuscular administratio n 1 2012 [id number] [id number] 134 Synterna Technologies (INT) complet ed [place] [facility] Encephali tis vaccine for intramusc ular administr ation DoD influenza, live, intranasal,qu adrivalent 2012 [id number] TrihealthAct-On Software Inc comple t ed influenza , live, intranasa l,quadriv alent 08/09/13 Given Ambulat ory Pharmac y influenza, live, intranasal, quadrivalent 11 2012 [id number] 149 Cell[employer], Inc. (MED) complet ed influenza , live, intranasa l, quadrival ent DoD [place] [facility] Encephalitis IM 2012 [id number] 6E 134 Valneva complet ed [place] [facility] Encephali tis IM 04/28/13 Given Ambulat ory Pharmac y [place] [facility] Encephalitis vaccine for intramuscular administratio n 0 2012 [id number] 6E 134 Intercell [employer] (INT) complet ed [place] Encephali tis vaccine for intramusc ular administr ation DoD rabies vaccine, IM 2012 [id number] 175 sanofi pasteur complet ed rabies vaccine, IM 04/21/13 Given Ambulat ory Pharmac y rabies vaccine, for intramuscular injection RETIRED CODE 2 2012 [id number] 18 Sanofi Pasteur ([facility]) complet ed rabies vaccine, for intramusc ular injection RETIRED CODE DoD typhoid Vi capsular polysaccharid e vac 2012 Q2085-7 101 sanofi pasteur complet ed typhoid Vi capsular polysacch aride vac 03/16/13 Given Ambulat ory Pharmac y rabies vaccine, IM 2012 [id number] 175 Novartis Pharmaceutica complet ed rabies vaccine, IM 03/16/13 Given Ambulat ory Pharmac y meningococcal A,C,Y,W-135 (MCV4P) 2012 [id number] 114 sanofi pasteur complet ed meningoco ccal A,C,Y,W-1 35 (MCV4P) 03/16/13 Given Ambulat ory Pharmac y rabies vaccine, for intramuscular injection RETIRED CODE 0 2012 [id number] 18 Novartis Pharmaceutica l [place]. (NOV) complet ed rabies vaccine, for intramusc ular injection RETIRED CODE DoD typhoid Vi capsular polysaccharid e vaccine 4 2012 [id number] 101 Sanofi Pasteur (PMC) complet ed typhoid Vi capsular polysacch aride vaccine DoD meningococcal polysaccharid e (groups A, C, Y and W-135) diphtheria toxoid conjugate vaccine (MCV4P) 2 2012 [id number] 114 Sanofi Pasteur (PMC) complet ed meningoco ccal polysacch aride (groups A, C, Y and W-135) diphtheri a toxoid conjugate vaccine (MCV4P) DoD influenza virus vaccine, live 2011 [id number] 111 Mirametrixune Inc comple t ed influenza virus vaccine, live 09/22/12 Given Ambulat ory Pharmac y influenza virus vaccine, live, attenuated, for intranasal use 10 2011 [id number] 111 Cell[employer] Technologies, Inc. (MED) complet ed influenza virus vaccine, live, attenuate d, for intranasa l use DoD tuberculin purified protein derivative 2010 [id number] 96 sanofi pasteur complet ed tuberculi n purified protein derivativ e 08/19/11 Given Ambulat ory Pharmac y tetanus, diphtheria, acellular pertu is 2010 [id number] 115 sanofi pasteur complet ed tetanus, diphtheri a, acellular pertussis 08/19/11 Given Ambulat ory Pharmac y typhoid Vi capsular polysaccharid e vac 2010 [id number] 101 sanofi pasteur complet ed typhoid Vi capsular polysacch aride vac 08/19/11 Given Ambulat ory Pharmac y anthrax vaccine 2010 [id number] 24 Emergent [employer] complet ed anthrax vaccine 08/19/11 Given Ambulat ory Pharmac y TDAP 2010 115 complet ed [facility] anthrax vaccine 6 2010 [id number] 24 Emergent [employer] [place] ([facility]) complet ed anthrax vaccine DoD typhoid Vi capsular polysaccharid e vaccine 3 2010 [id number] 101 Sanofi Pasteur ([facility]) complet ed typhoid Vi capsular polysacch aride vaccine DoD tetanus toxoid, reduced diphtheria toxoid, and acellular pertu is vaccine, adsorbed 0 2010 [id number] 115 Sanofi Pasteur ([facility]) complet ed tetanus toxoid, reduced diphtheri a toxoid, and acellular pertussis vaccine, adsorbed DoD influenza virus vaccine, live 2010 [id number] 111 [employer] comple t ed influenza virus vaccine, live 07/24/11 Given Ambulat ory Pharmac y influenza virus vaccine, live, attenuated, for intranasal use 1 2010 [id number] 111 Cell[employer], Inc. (MED) complet ed influenza virus vaccine, live, attenuate d, for intranasa l use DoD anthrax vaccine 2009 [id number] 24 [employer] complet ed anthrax vaccine 07/30/10 Given Ambulat ory Pharmac y anthrax vaccine 5 2009 [id number] 24 Emergent BioDefense [facility] ([facility]) complet ed anthrax vaccine DoD influenza virus vaccine, live 2009 111 complet ed influenza virus vaccine, live 07/12/10 Given Ambulat ory Pharmac y influenza virus vaccine, live, attenuated, for intranasal use 2 2009 111 Transcribed (TRS) complet ed influenza virus vaccine, live, attenuate d, for intranasa l use DoD anthrax vaccine 2009 [id number] [employer] complet ed anthrax vaccine 01/21/10 Given Ambulat ory Pharmac y anthrax vaccine 4 2009 [id number] 24 [employer] [place] ([facility]) complet ed anthrax vaccine DoD Novel influenza-H1N 1-09,pf,injec table 2008 [id number] 126 Novartis Pharmaceutica ls complet ed Novel influenza -N0E4-90, pf,inject able 09/25/09 Given Ambulat ory Pharmac y influenza virus vaccine,split 2008 [id number] 15 sanofi pasteur complet ed influenza virus vaccine,s plit 09/25/09 Given Ambulat ory Pharmac y influenza virus vaccine, split virus (incl. purified surface antigen)-reti red CODE 1 2008 [id number] 15 Sanofi Pasteur (PMC) complet ed influenza virus vaccine, split virus (incl. purified surface antigen)- retired CODE DoD Novel influenza-H1N 1-09, preservative- free, injectable 1 2008 [id number] 126 Property [employer]. (NOV) complet ed Novel influenza -P5Q9-54, preservat juan-free, injectabl e DoD anthrax vaccine 2008 [id number] 24 [employer] complet ed anthrax vaccine 07/11/09 Given Ambulat ory Pharmac y anthrax vaccine 3 2008 [id number] 24 [employer] [place] ([facility]) complet ed anthrax vaccine DoD typhoid Vi capsular polysaccharid e vac 2008 [id number] 101 sanofi pasteur complet ed typhoid Vi capsular polysacch aride vac 11/15/08 Given Ambulat ory Pharmac y typhoid Vi capsular polysaccharid e vaccine 1 2008 [id number] 101 Sanofi Pasteur (PMC) complet ed typhoid Vi capsular polysacch aride vaccine DoD influenza virus vaccine, live 2007 [id number] 111 MediEzFlop - A First [employer] Its Kind [employer] comple t ed influenza virus vaccine, live 09/06/08 Given Ambulat ory Pharmac y influenza virus vaccine, live, attenuated, for intranasal use 1 2007 [id number] 111 Cell[employer], Inc. (MED) complet ed influenza virus vaccine, live, attenuate d, for intranasa l use DoD yellow fever vaccine 2007 [id number] 37 sanofi pasteur complet ed yellow fever vaccine 12/09/07 Given Ambulat ory Pharmac y yellow fever vaccine 1 2007 [id number] 37 Sanofi Pasteur (PMC) complet ed yellow fever vaccine DoD influenza virus vaccine, live 2006 [id number] 111 [employer] - A First [employer] Its Kind [employer] comple t ed influenza virus vaccine, live 10/04/07 Given Ambulat ory Pharmac y influenza virus vaccine, live, attenuated, for intranasal use 1 2006 [id number] 111 [employer], Inc. (MED) complet ed influenza virus vaccine, live, attenuate d, for intranasa l use DoD anthrax vaccine 2006 [id number] 24 [employer] complet ed anthrax vaccine 02/16/07 Given Ambulat ory Pharmac y anthrax vaccine 3 2006 [id number] 24 [facility] complet ed anthrax vaccine DoD anthrax vaccine 2006 [id number] 24 [employer] complet ed anthrax vaccine 01/18/07 Given Ambulat ory Pharmac y anthrax vaccine 2 2006 [id number] 24 [facility] complet ed anthrax vaccine DoD influenza virus vaccine,split 2005 [id number] 15 sanofi pasteur complet ed influenza virus vaccine,s plit 10/28/06 Given Ambulat ory Pharmac y influenza virus vaccine, split virus (incl. purified surface antigen)-reti red CODE 1 2005 [id number] 15 Sanofi Pasteur ([facility]) complet ed influenza virus vaccine, split virus (incl. purified surface antigen)- retired CODE DoD typhoid vaccine, parenteral 2005 [id number] 41 sanofi pasteur complet ed typhoid vaccine, parentera l 09/10/06 Given Ambulat ory Pharmac y anthrax vaccine 2005 [id number] 24 [employer] complet ed anthrax vaccine 09/10/06 Given Ambulat ory Pharmac y vaccinia (smallpox) vaccine, diluted 2005 [id number] [facility] complet ed vaccinia (smallpox ) vaccine, diluted 09/10/06 Given Ambulat ory Pharmac y anthrax vaccine 1 2005 [id number] 24 [facility] complet ed anthrax vaccine DoD typhoid vaccine, parenteral, other than acetone-kille d, dried 1 2005 [id number] 41 Sanofi Pasteur ([facility]) complet ed typhoid vaccine, parentera l, other than acetone-k illed, dried DoD vaccinia (smallpox) vaccine, diluted 1 2005 [id number] 105 [facility] ([facility]) complet ed vaccinia (smallpox ) vaccine, diluted DoD influenza virus vaccine,split 2004 [id number] 15 sanofi pasteur complet ed influenza virus vaccine,s plit 10/10/05 Given Ambulat ory Pharmac y influenza virus vaccine, split virus (incl. purified surface antigen)-reti red CODE 1 2004 [id number] 15 Sanofi Pasteur ([facility]) complet ed influenza virus vaccine, split virus (incl. purified surface antigen)- retired CODE DoD hepatitis A-hepatitis B vaccine 2004 [id number] 104 GlaxoSmithKli ne complet ed hepatitis A-hepatit is B vaccine 02/13/05 Given Ambulat ory Pharmac y influenza virus vaccine, whole virus 2004 [id number] 16 sanofi pasteur complet ed influenza virus vaccine, whole virus 02/13/05 Given Ambulat ory Pharmac y HEP A-HEP B 2004 104 complet ed [facility] influenza virus vaccine, whole virus 1 2004 [id number] 16 Sanofi Pasteur ([facility]) complet ed influenza virus vaccine, whole virus DoD hepatitis A and hepatitis B vaccine 3 2004 [id number] 104 SmithKline (SKB) complet ed hepatitis A and hepatitis B vaccine DoD hepatitis A-hepatitis B vaccine 2003 [id number] 104 GlaxoSmithKli ne complet ed hepatitis A-hepatit is B vaccine 02/17/04 Given Ambulat ory Pharmac y HEP A-HEP B 2003 104 complet ed [facility] hepatitis A and hepatitis B vaccine 2 2003 [id number] 104 [employer]Kline (SKB) complet ed hepatitis A and hepatitis B vaccine DoD hepatitis A-hepatitis B vaccine 2003 [id number] 6 104 GlaxoSmithKli ne complet ed hepatitis A-hepatit is B vaccine 01/17/04 Given Ambulat ory Pharmac y HEP A-HEP B 2003 104 complet ed [facility] VARICELLA 2003 21 complet ed [facility] measles, mumps and rubella virus vaccine 0 2003 03 () Not Given measles, mumps and rubella virus vaccine DoD varicella virus vaccine 1 2003 21 () Not Given varicella virus vaccine DoD hepatitis A and hepatitis B vaccine 1 2003 [id number] 6 104 SmithKline (SKB) complet ed hepatitis A and hepatitis B vaccine DoD tuberculin purified protein derivative 2003 [id number] 96 sanofi pasteur complet ed tuberculi n purified protein derivativ e 01/09/04 Given Ambulat ory Pharmac y tetanus-dipht h toxoids (Td) adult/adol 2003 [id number] 09 sanofi pasteur complet ed tetanus-d iphth toxoids (Td) adult/ado l 01/09/04 Given Ambulat ory Pharmac y poliovirus vaccine, inactivated 2003 [id number] 10 sanofi pasteur complet ed polioviru s vaccine, inactivat ed 01/09/04 Given Ambulat ory Pharmac y influenza virus vaccine, whole virus 2003 [id number] 16 Novartis Pharmaceutica ls complet ed influenza virus vaccine, whole virus 01/09/04 Given Ambulat ory Pharmac y meningococcal polysaccharid e (MPSV4) 2003 [id number] 32 sanofi pasteur complet ed meningoco ccal polysacch aride (MPSV4) 01/09/04 Given Ambulat ory Pharmac y TDAP 2003 115 complet ed [facility] tetanus and diphtheria toxoids, adsorbed, preservative free, for adult use (2 Lf of tetanus toxoid and 2 Lf of diphtheria toxoid) 0 2003 [id number] 09 Sanofi Pasteur (PMC) complet ed tetanus and diphtheri a toxoids, adsorbed, preservat juan free, for adult use (2 Lf of tetanus toxoid and 2 Lf of diphtheri a toxoid) DoD poliovirus vaccine, inactivated 0 2003 [id number] 10 Sanofi Pasteur (PMC) complet ed polioviru s vaccine, inactivat ed DoD influenza virus vaccine, whole virus 0 2003 [id number] 16 Pow[employer]Ject Pharmaceutica ls (PWJ) complet ed influenza virus vaccine, whole virus DoD meningococcal polysaccharid e vaccine (MPSV4) 0 2003 [id number] 32 Sanofi Pasteur (PMC) complet ed meningoco ccal polysacch aride vaccine (MPSV4) DoD Results Combined list of recent chemistry, hematology and other laboratory results from Department of Defense and Veterans Affairs, ranging from 15 months to all on record, depending upon the facility. Order Name Results Value Reference Range Date Interpretation Specimen Comments Source Immunolo gy/Serol ogy Hep C Ab Negative 1 ( 4 12:00 PM) Negative 09/08 N Interpretiv e Data: NEGATIVE - Antibodies to HCV were not detected; does not exclude the possibility of exposure to HCV. PRESUMPTIVE POSITIVE - Presumptive evidence of antibodies to HCV. Follow CDC recommendat ions for supplementa l testing. Refer to updated guidance Testing HCV Infection: An Update of Guidance for Clinicians and Laboratoria ns for additional information and recommended HCV testing algorithm (Centers for Disease Control and Prevention, MMWR Early Release / Vol. 62 / March 15, 2013). Notifiable result/cond ition for Local/State PH department, notify your local public health immediately for proper notificatio n. Testing performed by [employer] [facility]. [id number] FSAM EPILAB HEPATITI S C ANTIBODY (HCV)-AR C HEPATITIS C VIRUS AB [PRESENCE] IN SERUM NON-REAC TIVE 01/31 Specimen Type: SERUM Comment: Hep C Ab: No HCV antibody detected. If recent infection is suspected or other evidence suggests HCV infection, consider HCV nucleic acid testing Ordering Provider: NICOLAS PENNINGTON Report Released Date/Time: Jan 07, 2024 11:42 AM Reporting Lab: [facility] [address] [address] Performing Lab: [address] [address] [place] HIV 1&2 Ag/Ab SCREEN HIV 1+2 AB+HIV1 P24 AG [PRESENCE] IN SERUM OR PLASMA BY IMMUNOASSA Y NON-REAC TIVE 01/31 Specimen Type: SERUM No comment entered. Ordering Provider: NICOLAS PENNINGTON Report Released Date/Time: Jan 07, 2024 11:42 AM Reporting Lab: [facility] [address] [address] Performing Lab: [address] [address] [place] LIPID PANEL FASTING CHOLESTERO L [MASS/VOLU ME] IN SERUM OR PLASMA 155 mg/dL 01/31 Specimen Type: SERUM Comment: Hep C Ab: No HCV antibody detected. If recent infection is suspected or other evidence suggests HCV infection, consider HCV nucleic acid testing Ordering Provider: NICOLAS PENNINGTON Report Released Date/Time: Jan 07, 2024 11:42 AM Reporting Lab: [address] [address] Performing Lab: [address] [address] [place] LIPID PANEL FASTING TRIGLYCERI DE [MASS/VOLU ME] IN SERUM OR PLASMA 55 mg/dL 0 - 150 01/31 Specimen Type: SERUM Comment: Hep C Ab: No HCV antibody detected. If recent infection is suspected or other evidence suggests HCV infection, consider HCV nucleic acid testing Ordering Provider: NICOLAS PENNINGTON Report Released Date/Time: Jan 07, 2024 11:42 AM Reporting Lab: [address] [address] Performing Lab: [address] [address] [place] LIPID PANEL FASTING CHOLESTERO L IN LDL [MASS/VOLU ME] IN SERUM OR PLASMA BY CALCULATIO N 94 mg/dL 0 - 129 01/31 Specimen Type: SERUM Comment: Hep C Ab: No HCV antibody detected. If recent infection is suspected or other evidence suggests HCV infection, consider HCV nucleic acid testing Ordering Provider: NICOLAS PENNINGTON Report Released Date/Time: Jan 07, 2024 11:42 AM Reporting Lab: [address] [address] Performing Lab: [address] [address] [place] LIPID PANEL FASTING CHOLESTERO L.TOTAL/CH OLESTEROL IN HDL [MASS RATIO] IN SERUM OR PLASMA 3.1 01/31 Specimen Type: SERUM Comment: Hep C Ab: No HCV antibody detected. If recent infection is suspected or other evidence suggests HCV infection, consider HCV nucleic acid testing Ordering Provider: NICOLAS PENNINGTON Report Released Date/Time: Jan 07, 2024 11:42 AM Reporting Lab: [facility] [address] [address] Performing Lab: [facility] [address] [address] [place] LIPID PANEL FASTING CHOLESTERO L IN HDL [MASS/VOLU ME] IN SERUM OR PLASMA 50 mg/dL 40 - 60 01/31 Specimen Type: SERUM Comment: Hep C Ab: No HCV antibody detected. If recent infection is suspected or other evidence suggests HCV infection, consider HCV nucleic acid testing Ordering Provider: NICOLAS PENNINGTON Report Released Date/Time: Jan 07, 2024 11:42 AM Reporting Lab: [address] [address] Performing Lab: [address] [address] [employer] URINALYS IS COLOR OF URINE Light-Ye llow 01/31 Specimen Type: URINE Comment: If Glucose = >500 and Ketones are positive, please alert the Physician. Ordering Provider: NICOLAS PENNINGTON Report Released Date/Time: Jan 07, 2024 11:45 AM Reporting Lab: [address] [address] Performing Lab: [address] [address] [employer] URINALYS IS APPEARANCE OF URINE Clear 01/31 Specimen Type: URINE Comment: If Glucose = >500 and Ketones are positive, please alert the Physician. Ordering Provider: NICOLAS PENNINGTON Report Released Date/Time: Jan 07, 2024 11:45 AM Reporting Lab: [address] [address] Performing Lab: [address] [address] [place] URINALYS IS GLUCOSE [MASS/VOLU ME] IN URINE NEGATIVE mg/dL 01/31 Specimen Type: URINE Comment: If Glucose = >500 and Ketones are positive, please alert the Physician. Ordering Provider: NICOLAS PENNINGTON Report Released Date/Time: Jan 07, 2024 11:45 AM Reporting Lab: [facility]USENICHOL[facility] [address] [facility] [address] Performing Lab: [facility]ITALUSE[address] [address] [place] URINALYS IS KETONES [MASS/VOLU ME] IN URINE BY TEST STRIP NEGATIVE mg/dL 01/31 Specimen Type: URINE Comment: If Glucose = >500 and Ketones are positive, please alert the Physician. Ordering Provider: NICOLAS PENNINGTON Report Released Date/Time: Jan 07, 2024 11:45 AM Reporting Lab: [facility] [address] [address] Performing Lab: [facility] [address] [address] [place] URINALYS IS ERYTHROCYT ES [PRESENCE] IN URINE SEDIMENT BY LIGHT MICROSCOPY NEGATIVE mg/dL 01/31 Specimen Type: URINE Comment: If Glucose = >500 and Ketones are positive, please alert the Physician. Ordering Provider: NICOLAS PENNINGTON Report Released Date/Time: Jan 07, 2024 11:45 AM Reporting Lab: [facility] [address] [address] Performing Lab: [facility] [address] [address] [place] URINALYS IS PROTEIN [MASS/VOLU ME] IN URINE BY TEST STRIP NEGATIVE mg/dL 01/31 Specimen Type: URINE Comment: If Glucose = >500 and Ketones are positive, please alert the Physician. Ordering Provider: NICOLAS PENNINGTON Report Released Date/Time: Jan 07, 2024 11:45 AM Reporting Lab: [facility] [address] [address] Performing Lab: [address] [address] [place] URINALYS IS NITRITE [PRESENCE] IN URINE NEGATIVE mg/dL 01/31 Specimen Type: URINE Comment: If Glucose = >500 and Ketones are positive, please alert the Physician. Ordering Provider: NICOLAS PENNINGTON Report Released Date/Time: Jan 07, 2024 11:45 AM Reporting Lab: [address] [address] Performing Lab: [address] [address] [place] URINALYS IS BILIRUBIN. TOTAL [PRESENCE] IN URINE NEGATIVE mg/dL 01/31 Specimen Type: URINE Comment: If Glucose = >500 and Ketones are positive, please alert the Physician. Ordering Provider: NICOLAS PENNINGTON Report Released Date/Time: Jan 07, 2024 11:45 AM Reporting Lab: [address] [address] Performing Lab: [address] [address] [place] URINALYS IS SPECIFIC GRAVITY OF URINE BY REFRACTOME TRY 1.025 1.016 - 1.022 01/31 H Specimen Type: URINE Comment: If Glucose = >500 and Ketones are positive, please alert the Physician. Ordering Provider: NICOLAS PENNINGTON Report Released Date/Time: Jan 07, 2024 11:45 AM Reporting Lab: [address] [address] Performing Lab: [address] [address] [place] URINALYS IS PH OF URINE BY TEST STRIP 6.0 5.0 - 9.0 01/31 Specimen Type: URINE Comment: If Glucose = >500 and Ketones are positive, please alert the Physician. Ordering Provider: NICOLAS PENNINGTON Report Released Date/Time: Jan 07, 2024 11:45 AM Reporting Lab: [address] [address] Performing Lab: [address] [address] [place] URINALYS IS UROBILINOG EN [MASS/VOLU ME] IN URINE BY TEST STRIP <2.0mg/d L <2.0 - 2.0 01/31 Specimen Type: URINE Comment: If Glucose = >500 and Ketones are positive, please alert the Physician. Ordering Provider: NICOLAS PENNINGTON Report Released Date/Time: Jan 07, 2024 11:45 AM Reporting Lab: [facility] [address] [facility] [address] Performing Lab: [facility]PITALRANDALUSIA HEALTHN [address] [address] [place] URINALYS IS LEUKOCYTE ESTERASE [PRESENCE] IN URINE BY TEST STRIP NEGATIVE 01/31 Specimen Type: URINE Comment: If Glucose = >500 and Ketones are positive, please alert the Physician. Ordering Provider: NICOLAS PENNINGTON Report Released Date/Time: Jan 07, 2024 11:45 AM Reporting Lab: [facility]RL TRN [address] [address] Performing Lab: [facility]OSPITALRBRYAN [facility]PITALTRN [address] [address] [place] MICROALB UMIN CREATINI NE RATIO PANEL MICROALBUM IN/CREATIN INE [MASS RATIO] IN URINE 3.1 mg/g 0 - 29.9 01/31 Specimen Type: URINE No comment entered. Ordering Provider: NICOLAS PENNINGTON Report Released Date/Time: Jan 07, 2024 11:45 AM Reporting Lab: [facility] [address] [address] Performing Lab: [facility]ITALRBRYAN [facility]PITALTRN [address] [address] [place] MICROALB UMIN CREATINI NE RATIO PANEL MICROALBUM IN [MASS/VOLU ME] IN URINE 0.5 mg/dL 01/31 Specimen Type: URINE No comment entered. Ordering Provider: NICOLAS PENNINGTON Report Released Date/Time: Jan 07, 2024 11:45 AM Reporting Lab: [place] [facility]USE[address] [address] Performing Lab: [facility]ITALRBRYAN [facility] HOSPITALTRN [facility]ITALUSE[address] [address] [place] MICROALB UMIN CREATINI NE RATIO PANEL CREATININE [MASS/VOLU ME] IN URINE 160.64 mg/dL 01/31 Specimen Type: URINE No comment entered. Ordering Provider: NICOLAS PENNINGTON Report Released Date/Time: Jan 07, 2024 11:45 AM Reporting Lab: [address] [address] Performing Lab: [address] [address] [place] BASIC METABOLI C PANEL (fasting ) UREA NITROGEN [MASS/VOLU ME] IN SERUM OR PLASMA 15 mg/dL 7 - 25 01/31 Specimen Type: SERUM Comment: Hep C Ab: No HCV antibody detected. If recent infection is suspected or other evidence suggests HCV infection, consider HCV nucleic acid testing Ordering Provider: NICOLAS PENNINGTON Report Released Date/Time: Jan 07, 2024 11:45 AM Reporting Lab: [address] [address] Performing Lab: [address] [address] [place] BASIC METABOLI C PANEL (fasting ) GLUCOSE [MASS/VOLU ME] IN SERUM OR PLASMA 96 mg/dL 65 - 100 01/31 Specimen Type: SERUM Comment: Hep C Ab: No HCV antibody detected. If recent infection is suspected or other evidence suggests HCV infection, consider HCV nucleic acid testing Ordering Provider: NICOLAS PENNINGTON Report Released Date/Time: Jan 07, 2024 11:45 AM Reporting Lab: [address] [address] Performing Lab: [address] [address] [place] BASIC METABOLI C PANEL (fasting ) SODIUM [MOLES/VOL UME] IN SERUM OR PLASMA 140 mmol/L 135 - 145 01/31 Specimen Type: SERUM Comment: Hep C Ab: No HCV antibody detected. If recent infection is suspected or other evidence suggests HCV infection, consider HCV nucleic acid testing Ordering Provider: NICOLAS PENNINGTON Report Released Date/Time: Jan 07, 2024 11:45 AM Reporting Lab: [address] [address] Performing Lab: [facility] [address] [facility] [address] [place] BASIC METABOLI C PANEL (fasting ) POTASSIUM [MOLES/VOL UME] IN SERUM OR PLASMA 4.1 mmol/L 3.5 - 5.0 01/31 Specimen Type: SERUM Comment: Hep C Ab: No HCV antibody detected. If recent infection is suspected or other evidence suggests HCV infection, consider HCV nucleic acid testing Ordering Provider: NICOLAS PENNINGTON Report Released Date/Time: Jan 07, 2024 11:45 AM Reporting Lab: [facility] [address] [facility] [address] Performing Lab: [address] [address] [place] BASIC METABOLI C PANEL (fasting ) CHLORIDE [MOLES/VOL UME] IN SERUM OR PLASMA 106 mmol/L 100 - 110 01/31 Specimen Type: SERUM Comment: Hep C Ab: No HCV antibody detected. If recent infection is suspected or other evidence suggests HCV infection, consider HCV nucleic acid testing Ordering Provider: NICOLAS PENNINGTON Report Released Date/Time: Jan 07, 2024 11:45 AM Reporting Lab: [address] [address] Performing Lab: [address] [address] [place] BASIC METABOLI C PANEL (fasting ) CARBON DIOXIDE, TOTAL [MOLES/VOL UME] IN SERUM OR PLASMA 24 meq/L 20 - 30 01/31 Specimen Type: SERUM Comment: Hep C Ab: No HCV antibody detected. If recent infection is suspected or other evidence suggests HCV infection, consider HCV nucleic acid testing Ordering Provider: NICOLAS PENNINGTON Report Released Date/Time: Jan 07, 2024 11:45 AM Reporting Lab: [address] [address] Performing Lab: [address] [address] [place] BASIC METABOLI C PANEL (fasting ) CREATININE [MASS/VOLU ME] IN SERUM OR PLASMA 1.03 mg/dL 0.50 - 1.40 01/31 Specimen Type: SERUM Comment: Hep C Ab: No HCV antibody detected. If recent infection is suspected or other evidence suggests HCV infection, consider HCV nucleic acid testing Ordering Provider: NICOLAS PENNINGTON Report Released Date/Time: Jan 07, 2024 11:45 AM Reporting Lab: [address] [address] Performing Lab: [address] [address] [place] [employer] BASIC METABOLI C PANEL (fasting ) GLOMERULAR FILTRATION RATE/1.73 SQ M.PREDICTE D [VOLUME RATE/AREA] IN SERUM, PLASMA OR BLOOD BY CREATININE -BASED FORMULA (CKD-EPI 2020) >90mL/mi n 60 01/31 Specimen Type: SERUM Comment: Hep C Ab: No HCV antibody detected. If recent infection is suspected or other evidence suggests HCV infection, consider HCV nucleic acid testing Ordering Provider: NICOLAS PENNINGTON Report Released Date/Time: Jan 07, 2024 11:45 AM Reporting Lab: [address] [address] Performing Lab: [address] [address] [employer] LIVER FUNCTION PROTEIN [MASS/VOLU ME] IN SERUM OR PLASMA 7.0 g/dL 6.0 - 8.3 01/31 Specimen Type: SERUM Comment: Hep C Ab: No HCV antibody detected. If recent infection is suspected or other evidence suggests HCV infection, consider HCV nucleic acid testing Ordering Provider: NICOLAS PENNINGTON Report Released Date/Time: Jan 07, 2024 11:45 AM Reporting Lab: [address] [address] Performing Lab: [address] [address] [employer] LIVER FUNCTION ALBUMIN [MASS/VOLU ME] IN SERUM OR PLASMA 4.4 g/dL 3.5 - 5.0 01/31 Specimen Type: SERUM Comment: Hep C Ab: No HCV antibody detected. If recent infection is suspected or other evidence suggests HCV infection, consider HCV nucleic acid testing Ordering Provider: NICOLAS PENNINGTON Report Released Date/Time: Jan 07, 2024 11:45 AM Reporting Lab: [facility] [address] [address] Performing Lab: [address] [address] [place]IVER FUNCTION ALKALINE PHOSPHATAS E [ENZYMATIC ACTIVITY/V OLUME] IN SERUM OR PLASMA 64 U/L 40 - 150 01/31 Specimen Type: SERUM Comment: Hep C Ab: No HCV antibody detected. If recent infection is suspected or other evidence suggests HCV infection, consider HCV nucleic acid testing Ordering Provider: NICOLAS PENNINGTON Report Released Date/Time: Jan 07, 2024 11:45 AM Reporting Lab: [address] [address] Performing Lab: [address] [address] [place] ASPARTATE AMINOTRANS FERASE [ENZYMATIC ACTIVITY/V OLUME] IN SERUM OR PLASMA 17 U/L 5 - 34 01/31 Specimen Type: SERUM Comment: Hep C Ab: No HCV antibody detected. If recent infection is suspected or other evidence suggests HCV infection, consider HCV nucleic acid testing Ordering Provider: NICOLAS PENNINGTON Report Released Date/Time: Jan 07, 2024 11:45 AM Reporting Lab: [address] [address] Performing Lab: [address] [address] [place] LIVER FUNCTION ALANINE AMINOTRANS FERASE [ENZYMATIC ACTIVITY/V OLUME] IN SERUM OR PLASMA 27 U/L 01/31 Specimen Type: SERUM Comment: Hep C Ab: No HCV antibody detected. If recent infection is suspected or other evidence suggests HCV infection, consider HCV nucleic acid testing Ordering Provider: NICOLAS PENNINGTON Report Released Date/Time: Jan 07, 2024 11:45 AM Reporting Lab: [address] [address] Performing Lab: [facility] [address] [facility] [address] [place] LIVER FUNCTION BILIRUBIN. TOTAL [MASS/VOLU ME] IN SERUM OR PLASMA 1.1 mg/dL 0.2 - 1.2 01/31 Specimen Type: SERUM Comment: Hep C Ab: No HCV antibody detected. If recent infection is suspected or other evidence suggests HCV infection, consider HCV nucleic acid testing Ordering Provider: NICOLAS PENNINGTON Report Released Date/Time: Jan 07, 2024 11:45 AM Reporting Lab: [facility] [address] [facility] [address] Performing Lab: [address] [address] [place] CALCIUM CALCIUM [MASS/VOLU ME] IN SERUM OR PLASMA 9.2 mg/dL 8.5 - 10.2 01/31 Specimen Type: SERUM No comment entered. Ordering Provider: NICOLAS PENNINGTON Report Released Date/Time: Jan 07, 2024 11:45 AM Reporting Lab: [facility] [address] [facility] [address] Performing Lab: [facility] [address] [facility] [address] [place] URIC ACID URATE [MASS/VOLU ME] IN SERUM OR PLASMA 5.1 mg/dL 3.5 - 7.2 01/31 Specimen Type: SERUM No comment entered. Ordering Provider: NICOLAS PENNINGTON Report Released Date/Time: Jan 07, 2024 11:45 AM Reporting Lab: [facility] [address] [facility] [address] Performing Lab: [address] [address] [place] CBC AND DIFF (AUTO) LEUKOCYTES [#/VOLUME] IN BLOOD BY AUTOMATED COUNT 5.24 10*3/uL 4.50 - 11.00 01/31 Specimen Type: BLOOD No comment entered. Ordering Provider: NICOLAS PENNINGTON Report Released Date/Time: Jan 07, 2024 11:45 AM Reporting Lab: [facility] [place] [facility] [address] [facility] [address] Performing Lab: [facility]RL [facility]N [facility] [address] [facility] [address] [place] CBC AND DIFF (AUTO) ERYTHROCYT ES [#/VOLUME] IN BLOOD BY AUTOMATED COUNT 4.60 10*6/uL 4.23 - 5.66 01/31 Specimen Type: BLOOD No comment entered. Ordering Provider: NICOLAS PENNINGTON Report Released Date/Time: Jan 07, 2024 11:45 AM Reporting Lab: [facility] [place] [facility] [address] [facility] [address] Performing Lab: [facility]OSPITALRANDALUSIA HEALTHN [facility]ITALUSE[address] [address] [place] CBC AND DIFF (AUTO) HEMOGLOBIN [MASS/VOLU ME] IN BLOOD 14.3 g/dL 12.8 - 17 01/31 Specimen Type: BLOOD No comment entered. Ordering Provider: NICOLAS PENNINGTON Report Released Date/Time: Jan 07, 2024 11:45 AM Reporting Lab: [facility]RL TRN [facility]ITALUSETS [address] [address] Performing Lab: [facility]ITALRL TRN [facility]PITALUSETS [address] [address] [place] CBC AND DIFF (AUTO) HEMATOCRIT [VOLUME FRACTION] OF BLOOD BY AUTOMATED COUNT 42.0 39.2 - 50.4 01/31 Specimen Type: BLOOD No comment entered. Ordering Provider: NICOLAS PENNINGTON Report Released Date/Time: Jan 07, 2024 11:45 AM Reporting Lab: [facility]N [place] [address] [address] Performing Lab: [facility]OSPITALRANDALUSIA HEALTHN [facility]OSPITALUSETS [address] [address] [place] CBC AND DIFF (AUTO) MCV [ENTITIC VOLUME] BY AUTOMATED COUNT 91.3 fL 82 - 99 01/31 Specimen Type: BLOOD No comment entered. Ordering Provider: NICOLAS PENNINGTON Report Released Date/Time: Jan 07, 2024 11:45 AM Reporting Lab: [facility]OSPITALRBRYAN [facility]PITALTRN [address] [address] Performing Lab: [facility]RL TRN [address] [address] [place] CBC AND DIFF (AUTO) MCHC [MASS/VOLU ME] BY AUTOMATED COUNT 34.0 g/dL 30.8 - 35.1 01/31 Specimen Type: BLOOD No comment entered. Ordering Provider: NICOLAS PENNINGTON Report Released Date/Time: Jan 07, 2024 11:45 AM Reporting Lab: [place] [facility]PITALUSETS [address] [address] Performing Lab: [facility]PITALRANDALUSIA HEALTHN [address] [address] [place] CBC AND DIFF (AUTO) PLATELETS [#/VOLUME] IN BLOOD BY AUTOMATED COUNT 251 10*3/uL 140 - 360 01/31 Specimen Type: BLOOD No comment entered. Ordering Provider: NICOLAS PENNINGTON Report Released Date/Time: Jan 07, 2024 11:45 AM Reporting Lab: [facility]ITALRL [facility]N [facility] [address] [address] Performing Lab: [facility]OSPITALRBRYAN [facility] HOSPITALTRN [address] [address] [place] CBC AND DIFF (AUTO) ERYTHROCYT E DISTRIBUTI ON WIDTH [RATIO] BY AUTOMATED COUNT 12.1 12.0 - 16.0 01/31 Specimen Type: BLOOD No comment entered. Ordering Provider: NICOLAS PENNINGTON Report Released Date/Time: Jan 07, 2024 11:45 AM Reporting Lab: [facility]ITALRL TRN [facility]ITALUSETS [address] [address] Performing Lab: [facility]RL TRN [address] [address] [place] CBC AND DIFF (AUTO) MONOCYTES [#/VOLUME] IN BLOOD BY AUTOMATED COUNT 0.43 10*3/uL 0.30 - 1.10 01/31 Specimen Type: BLOOD No comment entered. Ordering Provider: NICOLAS PENNINGTON Report Released Date/Time: Jan 07, 2024 11:45 AM Reporting Lab: [facility]ITALRL TRN [address] [place] [address] Performing Lab: [facility] [place] [facility] [address] [facility] [address] [place] CBC AND DIFF (AUTO) MCH [ENTITIC MASS] BY AUTOMATED COUNT 31.1 pg 26.2 - 32.6 01/31 Specimen Type: BLOOD No comment entered. Ordering Provider: NICOLAS PENNINGTON Report Released Date/Time: Jan 07, 2024 11:45 AM Reporting Lab: [facility] [place] [address] [address] Performing Lab: [facility] [place] [address] [address] [place] CBC AND DIFF (AUTO) NEUTROPHIL S/100 LEUKOCYTES IN BLOOD BY AUTOMATED COUNT 78.9 43.7 - 75.8 01/31 H Specimen Type: BLOOD No comment entered. Ordering Provider: NICOLAS PENNINGTON Report Released Date/Time: Jan 07, 2024 11:45 AM Reporting Lab: [facility] [place] [address] [address] Performing Lab: [facility] [place] [address] [address] [place] CBC AND DIFF (AUTO) LYMPHOCYTE S/100 LEUKOCYTES IN BLOOD BY AUTOMATED COUNT 10.9 14.0 - 42.3 01/31 L Specimen Type: BLOOD No comment entered. Ordering Provider: NICOLAS PENNINGTON Report Released Date/Time: Jan 07, 2024 11:45 AM Reporting Lab: [facility] [place] [address] [address] Performing Lab: [facility] [place] [address] [address] [place] CBC AND DIFF (AUTO) MONOCYTES/ 100 LEUKOCYTES IN BLOOD BY AUTOMATED COUNT 8.2 5.1 - 13.7 01/31 Specimen Type: BLOOD No comment entered. Ordering Provider: NICOLAS PENNINGTON Report Released Date/Time: Jan 07, 2024 11:45 AM Reporting Lab: [place] [facility] [place] [address] [address] Performing Lab: [facility]ITALUSETS [facility] [address] [facility] [address] [place] CBC AND DIFF (AUTO) EOSINOPHIL S/100 LEUKOCYTES IN BLOOD BY AUTOMATED COUNT 0.8 0.4 - 6.8 01/31 Specimen Type: BLOOD No comment entered. Ordering Provider: NICOLAS PENNINGTON Report Released Date/Time: Jan 07, 2024 11:45 AM Reporting Lab: [facility] [address] [address] Performing Lab: [place] [facility] [address] [address] [place] CBC AND DIFF (AUTO) BASOPHILS/ 100 LEUKOCYTES IN BLOOD BY AUTOMATED COUNT 1.0 0.1 - 2.0 01/31 Specimen Type: BLOOD No comment entered. Ordering Provider: NICOLAS PENNINGTON Report Released Date/Time: Jan 07, 2024 11:45 AM Reporting Lab: [facility]PITALRBRYAN [facility]OSPITALTRN [address] [address] Performing Lab: [facility]RL [facility] [address] [address] [place] CBC AND DIFF (AUTO) NEUTROPHIL S [#/VOLUME] IN BLOOD BY AUTOMATED COUNT 4.14 10*3/uL 2.20 - 7.60 01/31 Specimen Type: BLOOD No comment entered. Ordering Provider: NICOLAS PENNINGTON Report Released Date/Time: Jan 07, 2024 11:45 AM Reporting Lab: [facility] [facility]ITAL[facility] TRN [address] [address] Performing Lab: [facility] [address] [address] [place] CBC AND DIFF (AUTO) LYMPHOCYTE S [#/VOLUME] IN BLOOD BY AUTOMATED COUNT 0.57 10*3/uL 1.00 - 3.20 01/31 L Specimen Type: BLOOD No comment entered. Ordering Provider: NICOLAS PENNINGTON Report Released Date/Time: Jan 07, 2024 11:45 AM Reporting Lab: [facility] [address] [address] Performing Lab: [facility]USETS [address] [address] [place] CBC AND DIFF (AUTO) EOSINOPHIL S [#/VOLUME] IN BLOOD BY AUTOMATED COUNT 0.04 10*3/uL 0.03 - 0.44 01/31 Specimen Type: BLOOD No comment entered. Ordering Provider: NICOLAS PENNINGTON Report Released Date/Time: Jan 07, 2024 11:45 AM Reporting Lab: [facility] [address] Performing Lab: [facility] [address] [place] CBC AND DIFF (AUTO) BASOPHILS [#/VOLUME] IN BLOOD BY AUTOMATED COUNT 0.05 10*3/uL 0.01 - 0.13 01/31 Specimen Type: BLOOD No comment entered. Ordering Provider: NICOLAS PENNINGTON Report Released Date/Time: Jan 07, 2024 11:45 AM Reporting Lab: [facility]PITALTRN [facility] [address] Performing Lab: [facility]PITALTRN [facility] [address] [place] CBC AND DIFF (AUTO) IMMATURE GRANULOCYT ES/100 LEUKOCYTES IN BLOOD BY AUTOMATED COUNT 0.2 0.0 - 0.7 01/31 Specimen Type: BLOOD No comment entered. Ordering Provider: NICOLAS PENNINGTON Report Released Date/Time: Jan 07, 2024 11:45 AM Reporting Lab: [facility]ITALTRN [facility] [address] Performing Lab: [facility]ITALTRN [facility] [address] [place] CBC AND DIFF (AUTO) IMMATURE GRANULOCYT ES [#/VOLUME] IN BLOOD 0.01 10*3/uL 0.00 - 0.06 01/31 Specimen Type: BLOOD No comment entered. Ordering Provider: NICOLAS PENNINGTON Report Released Date/Time: Jan 07, 2024 11:45 AM Reporting Lab: [facility]ITALTRN [facility] [address] Performing Lab: [place] CNTR[facility] WSTRKirstin BOJORQUEZ [facility] [address] [facility] [address] [facility] Infectio us Disease HIV-1/O/2 Non-Reac tive 2 ( 3 10:10 AM) 09/01 N Interpretiv e Data: INTERPRETAT ION: This method is a screening procedure for the detection of HIV p24 Antigen and Antibodies to HIV-1, including Group O, and/or HIV-2. NON-REACTIV E: HIV-1 antigen and HIV-1 / HIV-2 antibodies were not detected. No laboratory evidence of HIV infection. A negative test result does not exclude the possibility of exposure to or infection with HIV. HIV antibodies and/or p24 antigen may be undetectabl e in some stages of the infection and in some clinical conditions. If acute HIV infection is suspected, consider submitting another specimen to a reference laboratory for HIV-1 RNA. SCREEN REACTIVE - CONFIRMATIO N TO FOLLOW: Possible presence of HIV-1antibo dies, HIV-2 antibodies and/or HIV-1 p24 antigen. Specimen will reflex to the confirmatio n testing that fulfills the Center for Disease Control and Prevention' s HIV diagnostic algorithm. Refer to [facility] Lab Guide for additional information : [email or web address] [facility]/ [email or web address] [email or web address]/la [email or web address] x Testing performed by Luis Armando perez [employer] Miscella neous Sendouts Repository Sample Received ( 3 10:10 AM) 09/01 N [facility] [facility] Vital Signs Combined list of inpatient and outpatient Vital Signs from Department of Defense and Veterans Affairs, ranging from 12 months to all on record, depending upon the facility. Vital Sign Value Date Comments Source SYSTOLIC BLOOD PRESSURE 120 02/08/2024 10:31:11 [place] DIASTOLIC BLOOD PRESSURE 77 02/08/2024 10:31:11 [place] PULSE OXIMETRY 100 02/08/2024 10:31:11 [place] WEIGHT 211 02/08/2024 10:31:11 [facility] BMI 30 kg/m2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 Ophthalmological New Patient Start Comprehensive Care 04310 2014 DALILA KIM Threshold Audiogram (Pure Tone) Threshold Audiogram (Pure Tone) 03294 2014 MARITZA CARTAGENA Prescription And Fitting Bilateral Corneal Lenses (Not For Aphakia) Prescription And Fitting Bilateral Corneal Lenses (Not For Aphakia) 40972 2014 ANN BROOKE Spectacles Services Fitting Monofocal Except For Aphakia Spectacles Services Fitting Monofocal Except For Aphakia 98639 2014 ANN BROOKE Determination Of Refractive State Determination Of Refractive State 41060 2014 ANN BROOKE Ophthalmological Prior Patient Start Comprehensive Care Ophthalmological Prior Patient Start Comprehensive Care 46384 2014 ANN BROOKE Closed Treatment Of Fracture Of Radial Head Closed Treatment Of Fracture Of Radial Head 48379 2014 DALILA MCNULTY Audiogram (Screening) Audiogram (Screening) 59243 2013 GLYNN VÁSQUEZ Prescription And Fitting Bilateral Corneal Lenses (Not For Aphakia) Prescription And Fitting Bilateral Corneal Lenses (Not For Aphakia) 93173 2013 ANN BROOKE Spectacles Services Fitting Monofocal Except For Aphakia Spectacles Services Fitting Monofocal Except For Aphakia 38495 2013 ANN BROOKE Determination Of Refractive State Determination Of Refractive State 94715 2013 ANN BROOKE Ophthalmological Prior Patient Start Comprehensive Care Ophthalmological Prior Patient Start Comprehensive Care 75868 2013 ANN BROOKE Phys Therapy Education Self Care Training - Per 15 Minutes Phys Therapy Education Self Care Training - Per 15 Minutes 35026 2011 CARMENCITA DANIEL Physical Therapy Service Evaluation Physical Therapy Service Evaluation 50654 2011 CARMENCITA DANIEL Spectacles Services Fitting Monofocal Except For Aphakia Spectacles Services Fitting Monofocal Except For Aphakia 36896 2011 ANITA CHAUDHRY Determination Of Refractive State Determination Of Refractive State 93169 2011 ANITA CHAUDHRY Ophthalmological Prior Patient Start Comprehensive Care Ophthalmological Prior Patient Start Comprehensive Care 61033 2011 ANITA CHAUDHRY Psychometric Neuropsych Testing Battery Admin By Computer Psychometric Neuropsych Testing Battery Admin By Computer 66335 2010 SHIRA HATFIELD Spectacles Services Fitting Monofocal Except For Aphakia Spectacles Services Fitting Monofocal Except For Aphakia 38448 2010 NICOLAS ALTAMIRANO Determination Of Refractive State Determination Of Refractive State 24034 2010 NICOLAS ALTAMIRANO Prescription And Fitting Bilateral Corneal Lenses (Not For Aphakia) Prescription And Fitting Bilateral Corneal Lenses (Not For Aphakia) 98968 2010 NICOLAS ALTAMIRANO Ophthalmological New Patient Start Comprehensive Care Ophthalmological New Patient Start Comprehensive Care 29169 2010 NICOLAS ALTAMIRANO Physical Therapy Service Re-Evaluation Physical Therapy Service Re-Evaluation 47688 2009 JENN YUEN Modalities Cryotherapy Cold Packs Modalities Cryotherapy Cold Packs 96628 2009 ELIZABETH RAMAN 15 mins DoD A isted Exercises For ROM Assisted Exercises For ROM 79057 2009 ELIZABETH RAMAN C 45 mins DoD Modalities Cryotherapy Cold Packs Modalities Cryotherapy Cold Packs 94616 2009 DENITA SAUNDERS 15min DoD A isted Exercises For ROM Assisted Exercises For ROM 29855 2009 DENITA SAUNDERS 30min DoD Modalities Cryotherapy Cold Packs Modalities Cryotherapy Cold Packs 15662 2009 ELIZABETH RAMAN C x 15 mins DoD A isted Exercises For ROM Assisted Exercises For ROM 12354 2009 ELIZABETH RAMAN C x 30 mins DoD Physical Therapy: ___ Se ion Segments, 15 Minutes Each Physical Therapy: ___ Session Segments, 15 Minutes Each 60445 2009 JENN YUEN Physical Therapy Service Re-Evaluation Physical Therapy Service Re-Evaluation 84441 2009 JENN YUEN Physical Therapy Service Evaluation Physical Therapy Service Evaluation 39395 2009 JENN YUEN this is a SPEC DoD Modalities Cryotherapy Cold Packs Modalities Cryotherapy Cold Packs 04562 2009 ELIZABETH RAMAN C x 15 mins DoD A isted Exercises For ROM Assisted Exercises [place] ROM 56119 2009 ELIZABETH RAMAN C x 30 mins DoD Mobilization Soft Ti ue Mobilization Soft Tissue 90778 2009 ELIZABETH RAMAN C 10 mins DoD Modalities Ultrasound Modalities Ultrasound 71580 2009 DENITA SAUNDERS 8 min DoD Mobilization Soft Ti ue Mobilization Soft Tissue 86048 2009 DENITA SAUNDERS 15 min DoD A isted Exercises For ROM Assisted Exercises For ROM 66901 2009 DENITA SAUNDERS 15min DoD Modalities Ultrasound Modalities Ultrasound 84860 2009 DENITA SAUNDERS 8min DoD Mobilization Soft Ti ue Mobilization Soft Tissue 63714 2009 DENITA SAUNDERS 15 min DoD A isted Exercises For ROM Assisted Exercises For ROM 58998 2009 DENITA SAUNDERS 15min DoD Modalities Ultrasound Modalities Ultrasound 54928 2009 DENITA SAUNDERS DoD Mobilization Soft Ti ue Mobilization Soft Tissue 75207 2009 DENITA SAUNDERS 30min DoD Modalities Ultrasound Modalities Ultrasound 86995 2009 DENITA SAUNDERS 8min DoD Mobilization Soft Ti ue Mobilization Soft Tissue 69958 2009 DENITA SAUNDERS 15min DoD A isted Exercises For ROM Assisted Exercises For ROM 76987 2009 DENITA SAUNDERS 15min DoD Modalities Ultrasound Modalities Ultrasound 86820 2009 DENITA SAUNDERS 8 min DoD Mobilization Soft Ti ue Mobilization Soft Tissue 45859 2009 DENITA SAUNDERS 15 min DoD Physical Therapy Mobilization Joint Physical Therapy Mobilization Joint 94324 2009 TEZ SALAZAR Physical Therapy: ___ Se ion Segments, 15 Minutes Each Physical Therapy: ___ Session Segments, 15 Minutes Each 20389 2009 TEZ SALAZAR Physical Therapy Service Evaluation Physical Therapy Service Evaluation 34240 2009 TEZ SALAZAR Closed Treatment Of Fracture Of Fibular Shaft 2009 YULIYA MARCUS [facility] Spectacles Services Fitting Monofocal Except For Aphakia Spectacles Services Fitting Monofocal Except For Aphakia 93420 2008 HOOD, CANG Q [facility] Determination Of Refractive State Determination Of Refractive State 63939 2008 HOOD, CANG Q [facility] Prescription And Fitting Bilateral Corneal Lenses (Not For Aphakia) Prescription And Fitting Bilateral Corneal Lenses (Not For Aphakia) 02967 2008 HOOD, CANG Q [facility] Ophthalmological New Patient Start Comprehensive Care Ophthalmological New Patient Start Comprehensive Care 95831 2008 HOOD, CANG Q [facility] Extensive Color Vision Testing Extensive Color Vision Testing 04122 2007, LITO A [facility] Lipids Test Panel Lipids Test Panel 04062 01/26, LITO A [facility] Blood Counts - CBC Blood Counts - CBC 04909 2007, LITO A [facility] Sickle Cell Test Sickle Cell Test 73210 2007, LITO A [facility] Serum VDRL Reagin Antibody 2007, LITO A [facility] Blood Profile Electrolytes Panel Blood Profile Electrolytes Panel 58805 2007, LITO A [facility] ECG 12-Lead ECG 12-Lead 64403 2007, LITO A DoD Threshold Audiogram (Pure Tone) Threshold Audiogram (Pure Tone) 29208 2007, LITO A DoD Screening Test Of Visual Acuity, Quantitative, Bilateral Screening Test Of Visual Acuity, Quantitative, Bilateral 89954 2007, LITO A [facility] Health And Behav A e mt Each 15 Min Initial A e [facility] And Behav Assess[facility] Each 15 Min Initial Assessment 96303 2007, LITO A [facility] Determination Of Refractive State Determination Of Refractive State 33824 2007 YONY SAMANO Ophthalmological Prior Patient Start Intermediate Level Care Ophthalmological Prior Patient Start Intermediate Level Care 98483 2007 YONY SAMANO Spectacles Services Fitting Monofocal Except For Aphakia Spectacles Services Fitting Monofocal Except For Aphakia 24235 2006 YONY SAMANO Ophthalmological Prior Patient Start Comprehensive Care Ophthalmological Prior Patient Start Comprehensive Care 73750 2006 YONY SAMANO Determination Of Refractive State Determination Of Refractive State 13999 2006 YONY SAMANO [facility] Threshold Audiogram (Pure Tone) Threshold Audiogram (Pure Tone) 06528 2006 DARIA NELSON [facility] Prescription And Fitting Bilateral Corneal Lenses (Not For Aphakia) Prescription And Fitting Bilateral Corneal Lenses (Not For Aphakia) 20772 2004 GEORGINA PERALTA [facility] Ophthalmological New Patient Start Comprehensive Care Ophthalmological New Patient Start Comprehensive Care 45122 2004 GEORGINA PERALTA [facility] Determination Of Refractive State Determination Of Refractive State 13532 2004 GEORGINA PERALTA [facility] Social History Combined list of available smoking, tobacco, and other social history from 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 Social History Type Response Date Comment Sourc e Tobacco smoking status [facility]-TO[facility]AC[facility] NEVER USED 01/07/2024 [place] Sex Representation Male 11/20/2022 Unknow n Organization Sexual Orientation Ambula tory Pharmacy Gender identity Ambulator y Pharmacy This section is an empty social history section. [facility] Assessment and Plan Combined list of future care activities from Department of Defense and Veterans Affairs facilities (e.g., assessment and plan notes, appointments, orders, and referrals). Additional future care activities may be listed in the Plan of Care section. Result Assessment and Plan Date Source Assessment and Plan Extracted from:Title : Office Clinic Note Author: MARGUERITE BALDWIN Date: 09/20/24 Encounter for examination and observation for other specified reasons Hearing threshold stable. Patient's left ear reference audiogram was re-established after follow-up program. A copy of hearing test was given to patient and [facility]. Marguerite Baldwin, Flight Data Technician Complaint Adjuster [facility], [place], [place] ? ? Extracted from:Title: PHA / Audio / Influenza and AGR SHPE Author: KRYSTAL BAEZ Date: 09/10/24 mbr came in for appt Addendum by KIANA MADERA V on September 10, 2024 10:00 EDT History of Refractive Surgery-?No No?Contact Lenses- N/A?Enrolled in Contact Lens Program- Yes?Gas Mask Inserts ordered- No?Current SRX on file- _ DVA (uncorrected) OD: 20/60 OS:?20/50 DVA (Corrected) OD: 20/20 OS: 20/20 NVA (uncorrected) OD: 20/20 OS: 20/20 Optometry findings meet standards- Yes Addendum by SOM BRAVO on September 10, 2024 10:43 EDT ?Vitals: Blood Pressure:???121/69 Heart Rate: 62 Height: 70 in Weight: 200lbs BMI: Medications: ?daily multivitamin Cyclobenzaprine 10mg Meloxicam 15mg Chronic Problems: ?n/a 507: _ Comments: Addendum by MARIAJOSE WHEELER MD on September 10, 2024 11:09 EDT Chief Complaint: Member here for annual PHA.?No acute complaints.?IMR?green. HEENT:?Normal Joints:?Normal Lungs:?Normal Heart:?Normal Comments: ANNUAL PERIODIC HEALTH ASSESSMENT I. HANGER INFORMATION AND DEMOGRAPHICS (SMI) 1. Last Name: THERESA 2. First Name: DOMINIQUE 3. Middle Name: CLAUDIA 4. Assessment Date: 5. : 6. Age: 39 7. Gender: M 8. [employer] ID Number: [id number] 9. 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 Unit Name: [address] 14. Duty Station/Location: [place] 15. UIC: [id number] 16. Is this your first Periodic Health Assessment (PHA)?: N 17. Are you enrolled in a secure messaging system with your health care provider?: Y 18. Current contact information: Preferred Method: Day Time Phone DSN: Day Time Phone: [phone] Night Time Phone: [phone] Email 1: [email or web address] Email 2: Address: [address] [place] [address]: [facility]: [place] Zip Code: [address] 19. Point of contact who can always reach you: Name: Debi Cardenas Phone 1: [phone] Phone 2: EMAIL: [email or web address] Address: [address] [place] [address]: [facility]: [place] Zip Code: [address] II. DEPLOYMENT INFORMATION (DEP) 1. [ 0 ] Total number of deployments in the PAST 5 YEARS 4. [ N ] Are you going to deploy within the NEXT 120 DAYS? III. 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 [ No ] Does your specialty require an operational duty physical exam? 4. [ Yes ] Are you currently enrolled in a medical surveillance/occupational health program?: Yes IV. MEDICAL CONDITIONS (GABINO): 1. Since your last PHA, have you experienced any of the following health conditions, and if so, what is your status? [ Periods of dizziness, fainting, or loss of consciousness ] Conditions with no medical care [ ] Conditions with medical care, but no longer under treatment [ Persistent or recurring noises in head or ears, Change in hearing ] Conditions with medical care, and NOW under treatment 2. Since your last PHA, have you experienced any of the following health conditions, and if so, what is your status? [ Recurring headaches/migraines ] Conditions with no medical care [ ] Conditions with medical care, but no longer under treatment [ Recurring muscle, joint, or low back pain ] Conditions with medical care, and NOW under treatment 3. For any condition marked YES in question 1 or 2, are you currently on any profile or limited duty for that condition? [ Recurring muscle, joint, or low back pain ] Conditions 4. [ Yes ] Have you been based or stationed at a location where an open burn pit was used? 5. [ Yes ] Have you been exposed to toxic airborne chemicals or other airborne contaminants? 6. [ Yes ] Are you enrolled in the Airborne Hazards and Open Burn Pit Registry? 8. Have you had any surgery since your last PHA?: No 10.a. [ No ] Since your last PHA, has a health care provider recommended surgery(s) that you have not had? 11.a. [ No ] Do you currently require hearing aids, special medical supplies, CPAP, adaptive equipment, assistive technology devices, and/or other special accommodations? 12.a. [ Yes ] Do you have a waiver or profile for any part of your Service's physical fitness test? 12.b. [ Cardio EventCrunches/Sit-Ups, Push-Ups ] Which component(s) of your physical fitness test are waived/profiled? 13.a. [ Yes ] Do you have any problems wearing a gas mask, ballistic helmet, body armor, and/or chemical/biological protective garments? 13.b. [ Added weight causes low back pain ] Please comment on these problems 14.a. [ No ] Have you ever been told by a health care provider that you SHOULD NOT receive an immunization for medical reasons? 15.a. [ No ] Do you have a permanent profile or an Assignment Limitation Code C? 16.a. [ No ] Are you on a temporary profile or limited duty? 17. [ 5 ] During the PAST 2 years, how many times have you been placed on a temporary profile or on limited duty? V. INDIVIDUAL MEDICAL READINESS (IMR) 1. [ No ] Do you have any allergies? 3. [ Not required ] Do you have red medical warning dog tags? 4. [ Yes ] Do you wear corrective lenses? 5. [ 0 ] How many pairs of glasses do you have? 6. [ Yes ] Do you have gas mask inserts? . BEHAVIORAL HEALTH (MHA) 1. a. [ employment employment ] Over the PAST MONTH, what major life stressors have you experienced that are a cause of significant concern or make it difficult for you to do your work, take care of things at home, or get along with other people (for example, serious conflicts with others, relationship problems, or a legal, disciplinary or financial problem)? 1. b. [ Yes ] Are you currently in treatment or getting professional help for this concern? 2. a. [ No ] In the PAST YEAR did you receive care for any mental health condition or concern such as, but not limited to post traumatic stress disorder (PTSD), depression, anxiety disorder, alcohol abuse or substance abuse? 3. [ Yes Cyclobenzaprine, Meloxicam ] What prescription or over-the counter medications (including herbals/supplements) for sleep, pain, combat stress, or a mental health problem are you CURRENTLY taking? 4. a. [ Yes ] In the past 12 months, have you gambled? 4. b. [ No ] During the past 12 months, have you become restless, irritable, or anxious when trying to stop/cut down on gambling? 4. c. [ No ] During the past 12 months, have you tried to keep your family or friends from knowing how much you gambled? 4. d. [ No ] During the past 12 months, did you have such financial trouble as a result of your gambling that you had to get help with living expenses from family, friends, or welfare? 5. a. [ 2-4 times a month ] How often do you have a drink containing alcohol? 5. b. [ 3 or 4 ] How many drinks containing alcohol do you have on a typical day when you are drinking? 5. c. [ Less than monthly ] How often do you have six or more drinks on one occasion? 6. Have you ever had any experience that was so frightening, horrible, or upsetting that in the PAST MONTH, you: 6. a. [ No ] Have had nightmares about it or thought about it when you did not want to? 6. b. [ No ] Tried hard not to think about it or went out of your way to avoid situations that remind you of it? 6. c. [ No ] Were constantly on guard, watchful or easily startled? 6. d. [ No ] [place] numb or detached from others, activities, or your surroundings? 6. e. [ Not answered ] [place] guilt or unable to stop blaming yourself or others for the event(s) or any problems the event(s) may have caused? 7. Over the LAST 2 WEEKS, how often have you been bothered by the following problems? 7. a. [ Few or several days ] Little interest or pleasure in doing things 7. b. [ Few or several days ] Feeling down, depressed, or hopeless 8. [ No ] Would you like to schedule an appointment with a health care provider to discuss any health concern(s)? 9. [ No ] Are you interested in receiving information or assistance for a stress, emotional or alcohol concern? 10. [ No ] Are you interested in receiving assistance for a family or relationship concern? 11. [ No ] Would you like to schedule a visit with a remote operations producer, mental health care provider, or a community support counselor? VII. FAMILY HISTORY AND LIFESTYLE (LIF) 1. [ Good ] Overall, how would you rate your health during the PAST MONTH? 2. [ Cancer, Heart-related conditions, Diabet ] Member indicates that family members have the following problems 3. The following family members has/had a history of cancer: Prostate: Grandfather Unknown Type of Cancer: Grandmother 4. The following family members has/had a history of heart-related conditions: High Blood Pressure: Grandmother 5. The following family members has/had a history of diabetes: Unknown: Mother, Grandmother, Sister 6. [ Yes ] I participate in moderate intensity physical activites at least 2.5 hours, or a combination of moderate and vigorous aerobic activites, for at least 75 minutes per week. 7. In a typical week, I do physical activities specifically designed to STRENGTHEN my muscles: [ 2 ] Day(s) per week 8. [ cyclobenzaprine, meloxicam ] What prescriptions or [id number] medications are you CURRENTLY taking for health problems on a ROUTINE BASIS? 9. Which of the following products have you taken since your last PHA: Protein Supplements/Creatine: Once a week Performance Enhancers/Pre-Workout Products: Less than once a month Multi-Vitamins: Once a day 11. Think about the PAST 30 DAYS. How often did you eat/drink the following foods/beverages? [ 3 to 6 servings per week ] Fruits [ 1 serving per day ] Vegetables [ 1 serving per day ] Starchy Vegetables [ 1 serving per day ] Whole Grains [ 3 to 6 servings per week ] Dairy and Calcium Containing Foods [ Rarely or Never ] Fish [ 1 serving per day ] Lean Protein [ 1 serving per day ] Sugar-Sweetened Beverages ] Have you had a cholesterol check by a health care management specialist within the PAST 5 YEARS? 13.a. In the PAST 30 DAYS, which of the following products have you used on at least one day? None 15. Which of the following best describes your past tobacco use? I have never used tobacco products. 16. [ No ] Are you regularly exposed to secondhand smoke? 17. [ 5 to less than 7 hours ] During the LAST 2 WEEKS, how many hours of sleep did you get on most days? 18. [ Yes ] During the LAST 2 WEEKS, have you felt impaired or unable to adequately perform due to sleepiness or poor quality sleep? 19. [ No ] Have you had any unexplained weight loss or gain since your last PHA? 20. Member is not at risk for sexually transmitted infections. 22. Since your last PHA, what, if anything, have you and your partner used to keep from getting ? [ IUD ] I am actively taking steps to prevent , including 23. [ No ] In the last year, have you or your partner had a scare, where you were not trying to get but were worried enough to use a home test? X. OTHER MEDICAL (OTH) 1. [ 6 ] Rate the amount of pain you have had, on average, over the PAST 24 HOURS 2. [ Yes ] Are you receiving treatment for pain? 3. [ Yes ] Since your last PHA, have you received care or treatment for any medical and/or mental health condition(s) from a civilian or non- facility? 4. List the condition(s) treated and where the care was provided: Conditions: Back pain, MRI, Knee pain, Any sickness, [place] Where: [facility] 5. Member acknowledged responsibility for reporting health issues. 7. [ No ] Woud you like to schedule an appointment with a health care provider to discuss any health concerns? XI. SEPARATION AND LONG TERM 1. [ Yes ] Are you planning to separate or retire within the next year from Active Duty or [place] Duty (activated for greater than 30 continuous days) OR do you intend to file a claim for disability compensation with the [employer]? ---- PART B. RECORD REVIEW AND RECOMMENDATIONS I. RECORD REVIEWER INFORMATION 1. Last Name: SHON 2. First Name: RAVINDER 3. Middle Name: 4. 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 EMAIL: [email or web address] 8. Facility: [facility] 9. Unit: [facility] 10. Address: [address] [place] [address] 11. State: [place] 12. Zip Code: [address] 13. Phone: [phone] 14. Date Record Review: II. MEDICAL SCREENING 1. [ ] Date of swat team member's most recent PHA 2. [ 5 feet 9 inches Date: ] swat team member's most recently documented height 3. [ 192 pounds Date: ] swat team member's most recently documented weight 4. [ 115/68 Date: ] swat team member's most recently documented blood pressure reading 5. [ No ] Does the swat team member have a history of abnormal blood pressure since their last PHA? 6. [ Yes ] Does the swat team member have a laboratory test of sickle cell trait documented in their permanent medical record? 7. [ ] What is the date of the swat team member's most recently documented cholesterol test? 9. [ Meloxicam 15mg ] List of swat team member's active medications listed in their permanent medical record 10. [ Yes: Cyclobenzaprine 10mg ] Is there a discrepancy between the active medication record review and the swat team member's self-reported list of medications? 11. [ No Outside Care Documented ] List documented significant care the swat team member has received since their last PHA from a provider OUTSIDE the Health System 12. [ No ] Is there a discrepancy between the swat team member's list of OUTSIDE care (from OT5), and the OUTSIDE care found in the record? 13. [ No Inside Care Documented ] List documented significant care the swat team member has received since their last PHA from a provider INSIDE the Health System 15. [ Not Answered ] Confirm that vaccine exemptions are listed in the medical record for each vaccine listed III. OCCUPATION-SPECIFIC EXAMINATIONS 2. [ ] When was the swat team member's most recently documented evaluation? IV. FAMILY HISTORY AND LIFESTYLE 1. [ Yes ] Does the [id number] reflect the swat team member's reported family history? VII. INDIVIDUAL MEDICAL READINESS 1. [ No ] Does the swat team member have an Assignment Limitation Code C? 3. [ Classification: 2 ] Most recently documented dental exam 4. [ No: Influenza, [place] ] Is the swat team member current on all required immunizations in the immunization tracking system? 5. [ Yes ] Is the swat team member current with Service-specific requirements for glasses and gas mask inserts? 6. Does the swat team member have the following laboratory tests documented in their permanent medical record? [ Yes ] HIV test within the PAST 24 months [ Yes ] G6PD results on file [ Yes ] Blood type and Rh on file [ Yes ] DNA test on file IX. ADDITIONAL RECORD REVIEWER COMMENTS 1. This record review does NOT have a need for provider notification or referral.2. Additional comments about this record review that need to be forwarded to the Health Die Casting Machine Operator completing PART C: Member reports periods of dizziness, fainting, or loss of consciousness but did not seek medical care. Member reports life stressors related to employment and is currently in treatment/ getting professional help for this concern. Member is currently taking prescription or over the counter medications, cyclobenzaprine, meloxicam. Pain level: 6. No other significant findings. JLV reviewed. Date Record Review Completed: - PART C. HEALTH CARE PROVIDER I. MENTAL HEALTH ASSESSMENT (MHA) PROVIDER INFORMATION 1. Last Name: LIAM 2. First Name: MARIAJOSE 3. Middle Name: 4. Service Branch: [employer] 5. 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 EMAIL: [email or web address] 8. Facility: [facility] 9. Unit: [facility] 10. Address: [address] [place] [address] 11. State: [place] 12. Zip Code: [address] 13. Phone: [phone] 14. Date HCP Review initiated: 1. Member marked that they have a concern or a difficulty with a major life stressor: employment Additional info: Referral is not indicated because there is no significant impairment. 2. Address concerns identified on member questions 2 and 3. History of mental health care: N/A Member's response: Provider's comments: Medications: Member indicated concern or yes Member's response: Cyclobenzaprine, Meloxicam Cyclobenzaprine, Meloxicam Provider's comments: as needed 3. Member's AUDIT-C screening score was 4. (nothing required) 4. Member did not lito yes on two or more of questions 6a through 6e. 5. Member did not lito More than half the days or nearly every day on question 7a or 7b. 6. Suicide risk evaluation. 6. a. Ask: Over the past month, have you wished you were or wished you could go to sleep and not wake up?: No 6. b. Ask: Have you actually had any thoughts of killing yourself?: No 6. f. 1. Ask: In you lifetime, have you done anything, started to do anything, or prepared to do anything to end your life?: No 6. g. Further risk assessment comments: no concerns 7. Member states that they have not had thoughts or concerns over the past month that they might hurt or lose control with someone. 9. Summary of Provider's identified concerns needing referrals: None 11. Comments: 13. Supplemental services recommended/information provided: No supplemental services required Date MHA Certified: ------ III. PERIODIC HEALTH ASSESSMENT (PHA) PROVIDER INFORMATION 1. Last Name: LIAM 2. First Name: MARIAJOSE 3. Middle Name: 4. 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 EMAIL: [email or web address] 8. Facility: [facility] 9. Unit: [facility] 10. Address: [address] [place] [address] 11. State: [place] 12. Zip Code: [address] 13. Phone: [phone] 14. Date HCP Review initiated: IV. PERIODIC HEALTH ASSESSMENT PROVIDER RECOMMENDATIONS and REFERRALS 1. Provider concerns with this assessment: No issues or concerns identified V. SUMMARY AND COMMENTS 1. Additional information summarizing findings during the swat team member assessment: 2. Provider Comments: Member is retiring next month. No major concerns. Reports occasional lightheadedness when standing up too fast. No other concerns. . INDIVIDUAL MEDICAL READINESS DISPOSITION DETERMINATION GABINO: Ready DEN: Ready IMM: Ready LAB: Ready ME: Ready IMR Status: Fully Medically Ready VII. SERVICE MEDICAL DEPLOYABILITY EVALUATION INDICATED Based on your review of all documentation, is the swat team member medically deployable without limitations? Reference [facility] 6490.07 Yes (swat team member DOES NOT currently have a medical condition that limits deployability) Date PHA Completed: END OF [id number] REPORT Impression:Meets?medical standards per DAFMAN 48-123/MSD. Disposition:?No AF469 changes based on this encounter.[employer] Qualified. 01/12/[address] [place] [address] Assessment and Plan Extracted from:Title : Office Clinic Note Author: MARGUERITE BALDWIN Date: 09/20/24 Encounter for examination and observation for other specified reasons Hearing threshold stable. Patient's left ear reference audiogram was re-established after follow-up program. A copy of hearing test was given to patient and uploaded into [employer]. Marguerite Baldwin, Flight Data Technician Complaint Adjuster [facility] Readiness and Training [facility], [place], [place] ? ? Extracted from:Title: PHA / Audio / Influenza and AGR SHPE Author: KRYSTAL BAEZ Date: 09/10/24 mbr came in for appt Addendum by KIANA MADERA V on September 10, 2024 10:00 EDT History of Refractive Surgery-?No No?Contact Lenses- N/A?Enrolled in Contact Lens Program- Yes?Gas Mask Inserts ordered- No?Current SRX on file- _ DVA (uncorrected) OD: 20/60 OS:?20/50 DVA (Corrected) OD: 20/20 OS: 20/20 NVA (uncorrected) OD: 20/20 OS: 20/20 Optometry findings meet standards- Yes Addendum by SOM BRAVO on September 10, 2024 10:43 EDT ?Vitals: Blood Pressure:???121/69 Heart Rate: 62 Height: 70 in Weight: 200lbs BMI: Medications: ?daily multivitamin Cyclobenzaprine 10mg Meloxicam 15mg Chronic Problems: ?n/a SF 507: _ Comments: Addendum by MARIAJOSE WHEELER MD on September 10, 2024 11:09 EDT Chief Complaint: Member here for annual PHA.?No acute complaints.?IMR?green. HEENT:?Normal Joints:?Normal Lungs:?Normal Heart:?Normal Comments: ANNUAL PERIODIC HEALTH ASSESSMENT I. HANGER INFORMATION AND DEMOGRAPHICS (SMI) 1. Last Name: THERESA 2. First Name: DOMINIQUE 3. Middle Name: CLAUDIA 4. Assessment Date: 5. : 6. Age: 39 7. Gender: M 8. [employer] ID Number: [id number] 9. Service Branch: [employer] 10. 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 Unit Name: [address] 14. Duty Station/Location: [place] 15. UIC: [id number] 16. Is this your first Periodic Health Assessment (PHA)?: N 17. Are you enrolled in a secure messaging system with your health care provider?: Y 18. Current contact information: Preferred Method: Day Time Phone DSN: Day Time Phone: [phone] Night Time Phone: [phone] Email 1: [email or web address] Email 2: Address: [address] [place] [address]: [facility]: [place] Zip Code: [address] 19. Point of contact who can always reach you: Name: Debi Cardenas Phone 1: [phone] Phone 2: EMAIL: [email or web address] Address: [address] [place] [address]: [facility]: [place] Zip Code: [address] II. DEPLOYMENT INFORMATION (DEP) 1. [ 0 ] Total number of deployments in the PAST 5 YEARS 4. [ N ] Are you going to deploy within the NEXT 120 DAYS? III. 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 [ No ] Does your specialty require an operational duty physical exam? 4. [ Yes ] Are you currently enrolled in a medical surveillance/occupational health program?: Yes IV. MEDICAL CONDITIONS (GABINO): 1. Since your last PHA, have you experienced any of the following health conditions, and if so, what is your status? [ Periods of dizziness, fainting, or loss of consciousness ] Conditions with no medical care [ ] Conditions with medical care, but no longer under treatment [ Persistent or recurring noises in head or ears, Change in hearing ] Conditions with medical care, and NOW under treatment 2. Since your last PHA, have you experienced any of the following health conditions, and if so, what is your status? [ Recurring headaches/migraines ] Conditions with no medical care [ ] Conditions with medical care, but no longer under treatment [ Recurring muscle, joint, or low back pain ] Conditions with medical care, and NOW under treatment 3. For any condition marked YES in question 1 or 2, are you currently on any profile or limited duty for that condition? [ Recurring muscle, joint, or low back pain ] Conditions 4. [ Yes ] Have you been based or stationed at a location where an open burn pit was used? 5. [ Yes ] Have you been exposed to toxic airborne chemicals or other airborne contaminants? 6. [ Yes ] Are you enrolled in the Airborne Hazards and Open Burn Pit Registry? 8. Have you had any surgery since your last PHA?: No 10.a. [ No ] Since your last PHA, has a health care provider recommended surgery(s) that you have not had? 11.a. [ No ] Do you currently require hearing aids, special medical supplies, CPAP, adaptive equipment, assistive technology devices, and/or other special accommodations? 12.a. [ Yes ] Do you have a waiver or profile for any part of your Service's physical fitness test? 12.b. [ Cardio EventCrunches/Sit-Ups, Push-Ups ] Which component(s) of your physical fitness test are waived/profiled? 13.a. [ Yes ] Do you have any problems wearing a gas mask, ballistic helmet, body armor, and/or chemical/biological protective garments? 13.b. [ Added weight causes low back pain ] Please comment on these problems 14.a. [ No ] Have you ever been told by a health care provider that you SHOULD NOT receive an immunization for medical reasons? 15.a. [ No ] Do you have a permanent profile or an Assignment Limitation Code C? 16.a. [ No ] Are you on a temporary profile or limited duty? 17. [ 5 ] During the PAST 2 years, how many times have you been placed on a temporary profile or on limited duty? V. INDIVIDUAL MEDICAL READINESS (IMR) 1. [ No ] Do you have any allergies? 3. [ Not required ] Do you have red medical warning dog tags? 4. [ Yes ] Do you wear corrective lenses? 5. [ 0 ] How many pairs of glasses do you have? 6. [ Yes ] Do you have gas mask inserts? . BEHAVIORAL HEALTH (MHA) 1. a. [ employment employment ] Over the PAST MONTH, what major life stressors have you experienced that are a cause of significant concern or make it difficult for you to do your work, take care of things at home, or get along with other people (for example, serious conflicts with others, relationship problems, or a legal, disciplinary or financial problem)? 1. b. [ Yes ] Are you currently in treatment or getting professional help for this concern? 2. a. [ No ] In the PAST YEAR did you receive care for any mental health condition or concern such as, but not limited to post traumatic stress disorder (PTSD), depression, anxiety disorder, alcohol abuse or substance abuse? 3. [ Yes Cyclobenzaprine, Meloxicam ] What prescription or over-the counter medications (including herbals/supplements) for sleep, pain, combat stress, or a mental health problem are you CURRENTLY taking? 4. a. [ Yes ] In the past 12 months, have you gambled? 4. b. [ No ] During the past 12 months, have you become restless, irritable, or anxious when trying to stop/cut down on gambling? 4. c. [ No ] During the past 12 months, have you tried to keep your family or friends from knowing how much you gambled? 4. d. [ No ] During the past 12 months, did you have such financial trouble as a result of your gambling that you had to get help with living expenses from family, friends, or welfare? 5. a. [ 2-4 times a month ] How often do you have a drink containing alcohol? 5. b. [ 3 or 4 ] How many drinks containing alcohol do you have on a typical day when you are drinking? 5. c. [ Less than monthly ] How often do you have six or more drinks on one occasion? 6. Have you ever had any experience that was so frightening, horrible, or upsetting that in the PAST MONTH, you: 6. a. [ No ] Have had nightmares about it or thought about it when you did not want to? 6. b. [ No ] Tried hard not to think about it or went out of your way to avoid situations that remind you of it? 6. c. [ No ] Were constantly on guard, watchful or easily startled? 6. d. [ No ] [place] numb or detached from others, activities, or your surroundings? 6. e. [ Not answered ] [place] guilt or unable to stop blaming yourself or others for the event(s) or any problems the event(s) may have caused? 7. Over the LAST 2 WEEKS, how often have you been bothered by the following problems? 7. a. [ Few or several days ] Little interest or pleasure in doing things 7. b. [ Few or several days ] Feeling down, depressed, or hopeless 8. [ No ] Would you like to schedule an appointment with a health care provider to discuss any health concern(s)? 9. [ No ] Are you interested in receiving information or assistance for a stress, emotional or alcohol concern? 10. [ No ] Are you interested in receiving assistance for a family or relationship concern? 11. [ No ] Would you like to schedule a visit with a remote operations producer, mental health care provider, or a community support counselor? VII. FAMILY HISTORY AND LIFESTYLE (LIF) 1. [ Good ] Overall, how would you rate your health during the PAST MONTH? 2. [ Cancer, Heart-related conditions, Diabet ] Member indicates that family members have the following problems 3. The following family members has/had a history of cancer: Prostate: Grandfather Unknown Type of Cancer: Grandmother 4. The following family members has/had a history of heart-related conditions: High Blood Pressure: Grandmother 5. The following family members has/had a history of diabetes: Unknown: Mother, Grandmother, Sister 6. [ Yes ] I participate in moderate intensity physical activites at least 2.5 hours, or a combination of moderate and vigorous aerobic activites, for at least 75 minutes per week. 7. In a typical week, I do physical activities specifically designed to STRENGTHEN my muscles: [ 2 ] Day(s) per week 8. [ cyclobenzaprine, meloxicam ] What prescriptions or [id number] medications are you CURRENTLY taking for health problems on a ROUTINE BASIS? 9. Which of the following products have you taken since your last PHA: Protein Supplements/Creatine: Once a week Performance Enhancers/Pre-Workout Products: Less than once a month Multi-Vitamins: Once a day 11. Think about the PAST 30 DAYS. How often did you eat/drink the following foods/beverages? [ 3 to 6 servings per week ] Fruits [ 1 serving per day ] Vegetables [ 1 serving per day ] Starchy Vegetables [ 1 serving per day ] Whole Grains [ 3 to 6 servings per week ] Dairy and Calcium Containing Foods [ Rarely or Never ] Fish [ 1 serving per day ] Lean Protein [ 1 serving per day ] Sugar-Sweetened Beverages ] Have you had a cholesterol check by a health care management specialist within the PAST 5 YEARS? 13.a. In the PAST 30 DAYS, which of the following products have you used on at least one day? None 15. Which of the following best describes your past tobacco use? I have never used tobacco products. 16. [ No ] Are you regularly exposed to secondhand smoke? 17. [ 5 to less than 7 hours ] During the LAST 2 WEEKS, how many hours of sleep did you get on most days? 18. [ Yes ] During the LAST 2 WEEKS, have you felt impaired or unable to adequately perform due to sleepiness or poor quality sleep? 19. [ No ] Have you had any unexplained weight loss or gain since your last PHA? 20. Member is not at risk for sexually transmitted infections. 22. Since your last PHA, what, if anything, have you and your partner used to keep from getting ? [ IUD ] I am actively taking steps to prevent , including 23. [ No ] In the last year, have you or your partner had a scare, where you were not trying to get but were worried enough to use a home test? X. OTHER MEDICAL (OTH) 1. [ 6 ] Rate the amount of pain you have had, on average, over the PAST 24 HOURS 2. [ Yes ] Are you receiving treatment for pain? 3. [ Yes ] Since your last PHA, have you received care or treatment for any medical and/or mental health condition(s) from a civilian or non- facility? 4. List the condition(s) treated and where the care was provided: Conditions: Back pain, MRI, Knee pain, Any sickness, [place]. Where: [facility] 5. Member acknowledged responsibility for reporting health issues. 7. [ No ] Woud you like to schedule an appointment with a health care provider to discuss any health concerns? XI. SEPARATION AND LONG TERM 1. [ Yes ] Are you planning to separate or retire within the next year from Active Duty or [place] Duty (activated for greater than 30 continuous days) OR do you intend to file a claim for disability compensation with the Veterans Benefits Administration? ---- PART B. RECORD REVIEW AND RECOMMENDATIONS I. RECORD REVIEWER INFORMATION 1. Last Name: SHON 2. First Name: RAVINDER 3. Middle Name: 4. 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 EMAIL: [email or web address] 8. Facility: [facility] 9. Unit: [facility] 10. Address: [address] [place] [address] [place] 11. State: [place] 12. Zip Code: [address] 13. Phone: [phone] 14. Date Record Review: II. MEDICAL SCREENING 1. [ ] Date of swat team member's most recent PHA 2. [ 5 feet 9 inches Date: ] swat team member's most recently documented height 3. [ 192 pounds Date: ] swat team member's most recently documented weight 4. [ 115/68 Date: ] swat team member's most recently documented blood pressure reading 5. [ No ] Does the swat team member have a history of abnormal blood pressure since their last PHA? 6. [ Yes ] Does the swat team member have a laboratory test of sickle cell trait documented in their permanent medical record? 7. [ ] What is the date of the swat team member's most recently documented cholesterol test? 9. [ Meloxicam 15mg ] List of swat team member's active medications listed in their permanent medical record 10. [ Yes: Cyclobenzaprine 10mg ] Is there a discrepancy between the active medication record review and the swat team member's self-reported list of medications? 11. [ No Outside Care Documented ] List documented significant care the swat team member has received since their last PHA from a provider OUTSIDE the Health System 12. [ No ] Is there a discrepancy between the swat team member's list of OUTSIDE care (from OTH5), and the OUTSIDE care found in the record? 13. [ No Inside Care Documented ] List documented significant care the swat team member has received since their last PHA from a provider INSIDE the Health System 15. [ Not Answered ] Confirm that vaccine exemptions are listed in the medical record for each vaccine listed III. OCCUPATION-SPECIFIC EXAMINATIONS 2. [ ] When was the swat team member's most recently documented evaluation? IV. FAMILY HISTORY AND LIFESTYLE 1. [ Yes ] Does the [id number] reflect the swat team member's reported family history? VII. INDIVIDUAL MEDICAL READINESS 1. [ No ] Does the swat team member have an Assignment Limitation Code C? 3. [ Classification: 2 ] Most recently documented dental exam 4. [ No: Influenza, [place] ] Is the swat team member current on all required immunizations in the immunization tracking system? 5. [ Yes ] Is the swat team member current with Service-specific requirements for glasses and gas mask inserts? 6. Does the swat team member have the following laboratory tests documented in their permanent medical record? [ Yes ] HIV test within the PAST 24 months [ Yes ] G6PD results on file [ Yes ] Blood type and Rh on file [ Yes ] DNA test on file IX. ADDITIONAL RECORD REVIEWER COMMENTS 1. This record review does NOT have a need for provider notification or referral.2. Additional comments about this record review that need to be forwarded to the Health Die Casting Machine Operator completing PART C: Member reports periods of dizziness, fainting, or loss of consciousness but did not seek medical care. Member reports life stressors related to employment and is currently in treatment/ getting professional help for this concern. Member is currently taking prescription or over the counter medications, cyclobenzaprine, meloxicam. Pain level: 6. No other significant findings. LAMONT reviewed. Date Record Review Completed: - PART C. HEALTH CARE PROVIDER I. MENTAL HEALTH ASSESSMENT (MHA) PROVIDER INFORMATION 1. Last Name: LIAM 2. First Name: MARIAJOSE 3. Middle Name: 4. 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 EMAIL: [email or web address] 8. Facility: [facility] 9. Unit: [facility] 10. Address: [address] [place] [address] 11. State: [place] 12. Zip Code: [address] 13. Phone: [phone] 14. Date HCP Review initiated: 1. Member marked that they have a concern or a difficulty with a major life stressor: employment Additional info: Referral is not indicated because there is no significant impairment. 2. Address concerns identified on member questions 2 and 3. History of mental health care: N/A Member's response: Provider's comments: Medications: Member indicated concern or yes Member's response: Cyclobenzaprine, Meloxicam Cyclobenzaprine, Meloxicam Provider's comments: as needed 3. Member's AUDIT-C screening score was 4. (nothing required) 4. Member did not lito yes on two or more of questions 6a through 6e. 5. Member did not lito More than half the days or nearly every day on question 7a or 7b. 6. Suicide risk evaluation. 6. a. Ask: Over the past month, have you wished you were or wished you could go to sleep and not wake up?: No 6. b. Ask: Have you actually had any thoughts of killing yourself?: No 6. f. 1. Ask: In you lifetime, have you done anything, started to do anything, or prepared to do anything to end your life?: No 6. g. Further risk assessment comments: no concerns 7. Member states that they have not had thoughts or concerns over the past month that they might hurt or lose control with someone. 9. Summary of Provider's identified concerns needing referrals: None 11. Comments: 13. Supplemental services recommended/information provided: No supplemental services required Date MHA Certified: ------ III. PERIODIC HEALTH ASSESSMENT (PHA) PROVIDER INFORMATION 1. Last Name: LIAM 2. First Name: MARIAJOSE 3. Middle Name: 4. Service Branch: [employer] 5. 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 EMAIL: [email or web address] 8. Facility: [facility] 9. Unit: [address] [place], [place] [address] 10. Address: [address] [place] [address] 11. State: [place] 12. Zip Code: [address] 13. Phone: [phone] 14. Date HCP Review initiated: IV. PERIODIC HEALTH ASSESSMENT PROVIDER RECOMMENDATIONS and REFERRALS 1. Provider concerns with this assessment: No issues or concerns identified V. SUMMARY AND COMMENTS 1. Additional information summarizing findings during the swat team member assessment: 2. Provider Comments: Member is retiring next month. No major concerns. Reports occasional lightheadedness when standing up too fast. No other concerns. . INDIVIDUAL MEDICAL READINESS DISPOSITION DETERMINATION GABINO: Ready DEN: Ready IMM: Ready LAB: Ready ME: Ready IMR Status: Fully Medically Ready VII. SERVICE MEDICAL DEPLOYABILITY EVALUATION INDICATED Based on your review of all documentation, is the swat team member medically deployable without limitations? Reference Dylan 6490.07 Yes (swat team member DOES NOT currently have a medical condition that limits deployability) Date PHA Completed: END OF [id number] REPORT Impression:Meets?medical standards per MINA 48-123/MSD. Disposition:?No AF469 changes based on this encounter.[employer]ide Qualified. 01/12/2025 [id number] AMDS Plan of Care List of future care activities from Department of 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 Additional future care activities may be listed in the Assessment and Plan section. Date/Time Care Activity Care Activity Detail Facili ty 02/09/2025 AMBULATORY - MEDICINE AMBULATORY - [facility]IC[facility] Functional Status Combined list of recent functional and cognitive assessments recorded at Department of Defense and Veterans Affairs (VA).VA Functional [place] Measurement (FIM) Scale: 1 = Total Assistance (Subject = 0% +), 2 = Maximal Assistance (Subject = 25% +), 3 = Moderate Assistance (Subject = 50% +), 4 = Minimal Assistance (Subject = 75% +), 5 = Supervision, 6 = Modified [place] (Device), 7 = Complete [place] (Timely, Safely). Assessment Date/Time Source Assessment Type Assessment Skill Assessment Score Assessment Details No data available for this section
== END 2025-01-12 09:26 | disposition home or self-care (01) ==
PROVIDERS: Visit Provider Nurse Practitioner Family
DX: Z00.00 Encounter for general adult medical examination without abnormal findings (principal)

== ENCOUNTER → 2025-01-12 08:39 | Outpatient (BNVA) | payer OTHER, SELFPAY | PROVIDERS: Visit Provider Nurse Practitioner Family | DX: Z00.00 Encounter for general adult medical examination without abnormal findings (principal) | CPT/HCPCS: 96127 ==

== ENCOUNTER 2025-01-18 09:00 | Outpatient (RCR) | payer OTHER, SELFPAY ==
--- NOTE | 2024-09-21 09:25 | MHC.PT.EP ---
[facility] [place] Office [place] Office [place] Office [address] Claudia Hughes [address] [phone] F: [phone] F: [phone] F: [phone] F: [phone] Physical Therapy Plan of Care Date of Evaluation: Date of Surgery: Diagnosis: Assessment: Frequency and Duration: The patient will be seen Short Term Goals: Prison Goals: Treatment Plan: Modalities to reduce pain, spasms and effusion. Manual therapy to restore motion and function. Therapeutic exercise to improve strength and flexibility. Neuromuscular re-education for posture and balance. Therapeutic activities to return to functional activities of daily living. Electronically signed by: Please sign and return to therapist. Thank you for your referral.
--- NOTE | 2024-09-21 10:03 | MHC.PT.EP ---
[facility] [place] Office [place] Office [place] Office [address] Hughes [address] [phone] F: [phone] F: [phone] F: [phone] F: [phone] Physical Therapy Plan of Care Date of Evaluation: 09/21/24 Date of Surgery: Diagnosis: low back pain Assessment: Patient is a 39 year old R handed male who presents with s/s consistent with low back pain. He works with daily job demands including [employer]. Patient past medical history includes history of low back pain and wrist pain. Current impairments include pain, posture, ROM, strength, flexibility, activity tolerance and functional mobility. Functional limitations include decreased ability to run, jog, sleep, bend, lift and be active. Patient is motivated with good rehab potential. Skilled PT will address impairments and functional limitations in order to achieve goals. Frequency and Duration: The patient will be seen 2x.week for 5 weeks Short Term Goals: I with HEP - 2 weeks Full AROM pain free - 3 weeks Centralized s/s - 3 weeks Densitometrist Goals: Restore PLOF 2/10 max pain - 5 weeks Oswestry 10% or less - 5 weeks Able to bend with proper mechanics - floor to waist lift - pain free - 5 weeks Able to jog 1 mile without increased pain - 5 weeks Treatment Plan: Modalities to reduce pain, spasms and effusion. Manual therapy to restore motion and function. Therapeutic exercise to improve strength and flexibility. Neuromuscular re-education for posture and balance. Therapeutic activities to return to functional activities of daily living. Electronically signed by: Tomas Kapoor, PT Please sign and return to therapist. Thank you for your referral.
--- NOTE | 2025-02-01 13:54 | MHC.PT.DC ---
[facility] [place] Office [place] Office [place] Office [address] Claudia Hughes [address] [phone] F: [phone] F: [phone] F: [phone] F: [phone] Physical Therapy Discharge Report Diagnosis: low back pain Date of Surgery: Date of Evaluation: 09/21/24 Date of Discharge: Treatments to Date: 14 Cancellations to Date: No Shows to Date: Discharge Status: Improved Function Independent with HEP Discharge Summary: 01/18; Pt offers no c/o pain. Pt HS remain tight. Pt has 1 remaining visit before DC. 01/04/25: pt progressing well with skilled PT. no adverse reactions. flew home from [facility] yesterday. Continue to progerss strength, core strength, body mechanics NV. 12/07; Pt I with HEP. Pt leaving for vacation x 3 weeks. Advised to use L/S support on plane and do L/S extension regularly. 11/30/24: pt progressed with core and hip strength. continue to progress core strength as tolerated. 11/23/24: pt with good carryover. reduced discomfort with daily activities. spent significant time educating on proper modifications in order to continue with activities. 11/18/24: pt progressed with strength and function. no increased s/s. continue to progress. 11/07/24: pt with no new s/s. progressing functionally. continue to progress as tolerated. 10/24/24: pt progressing well overall with skilled PT. continue to progress as tolerated. 10/20/24: pt progressing well with reduced s/s. able to increased resistance activities today. continue to progress as tolerated. 10/18/24: pt progressing well. reduced s/s but still present and most prevalent going supine to prone or prone to supine. 10/12/24: s/s stable but not better since last visit. added pallof press with no adverse reactions. discussed inversion use which he inquired about outside of PT. 10/10/24: pt progressing well overall with skilled PT. we continued same program with increased TM time and pt is trending well on this program. proceed cautiously - extension based. 09/30/24: pt progressing well overall. s/s to low back only at finish today. continue to progress as tolerated. s/s are still in irritable phase. 09/27; Pt felt looser after exs. HS tight. R L.E sxs up to butt after RX. 09/23/24: pt s/s variable still. we will stay the course for now and assess response Nv. Patient is a 39 year old R handed male who presents with s/s consistent with low back pain. 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 Patient past medical history includes history of low back pain and wrist pain. Current impairments include pain, posture, ROM, strength, flexibility, activity tolerance and functional mobility. Functional limitations include decreased ability to run, jog, sleep, bend, lift and be active. Patient is motivated with good rehab potential. Skilled PT will address impairments and functional limitations in order to achieve goals. Electronically signed by: Tomas Kapoor, PT Please sign and return to therapist. Thank you for your referral.
== END 2025-02-01 13:54 | disposition home or self-care (01) ==
LOC: HO.PTCHIC 09:00
PROVIDERS: PCP Nurse Practitioner Family; Visit Provider Nurse Practitioner Family
DX: M54.50 Low back pain, unspecified (principal)
CPT/HCPCS: 97014; 97110; 97140; 97161

== ENCOUNTER 2025-02-07 09:14 | Outpatient (REF) | payer OTHER, SELFPAY ==
--- OUTSIDE RECORDS SUMMARY | 2025-02-07 10:14 | XMS_ITS | Clinical Summary ---
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 Active Social History Tobacco Use Types Packs/Day Years Used Date Smoking Tobacco: Never Passive Smoke Exposure: Never Smokeless Tobacco: Never Tobacco Cessation:Counseling Given: Not Answered Alcohol Use Standard Drinks/Week Comments Yes 0 (1 standard drink = 0.6 oz pur e alcohol) social Comments Unknown Sex and Gender Information Value Date Recorded Sex Assigned at Choose not to disclose 3:44 PM EST Legal Sex Male 5:36 PM EDT Gender Identity Choose not to disclose 3:44 PM EST Sexual Orientation Choose not to disclose 2022 3:44 PM EST Plan of Treatment Upcoming Encounters Date Type Department Care Team ([facility] Contact Info) Description 08/23/2025 12:00 PM EDT Office Visit [facility] DENTAL [address] [place] [address] Sayra Marino Health Maintenance Due Date Last Done Comments Depression Screening 1985 HIV Screening 1985 Lipid Panel 1985 SDOH Screening 1985 Alcohol/Substance Use Screening 1997 Family Planning (PISQ) 2000 Hepatitis C Screening 2003 DTaP/Tdap/Td Vaccines (1 - Tdap) 2004 Hepatitis B Vaccines (1 of 3 - 19+ 3-dose series) 2004 COVID-19 Vaccine (1 - 2023- season) 2024 Influenza Vaccine (#1) 2024 09/03/2023, 2020 Dental X-Ray: Bitewings 01/28/2025 01/28/20 24, 01/01/2023, 07/06/2018 Dental Oral Exam 03/02/2025 08/31/2024, , 01/01/2023, Additional history exists Dental Prophylaxis 03/02/2025 08/31/2024, 0 01/28/2024, 01/01/2023, Additional history exists Tobacco Screening 08/31/2025 08/31/2024 Dental X-Ray: Full Mouth 01/02/2026 01/01/2023, 06/10 Zoster Vaccines (1 of 2) 2035 RSV Patients and Patients Aged 60 years or older (1 - 1-dose 75+ series) 2060 HIB Vaccines Aged Out No longer eligi ble based on patient's age to complete this topic HPV Vaccines Aged Out No longer eligi ble based on patient's age to complete this topic Hepatitis A Vaccines Aged Out No long er eligible based on patient's age to complete this topic IPV Vaccines Aged Out No longer eligi ble based on patient's age to complete this topic Meningococcal Vaccine Aged Out No dre pretty eligible based on patient's age to complete this topic Pneumococcal Vaccine: Pediatrics (0 to 5 Years) and At-Risk Patients (6 to 49) Years) Aged Out No longer eligible based on patient's age to complete this topic RSV under 20 months Aged Out No longe r eligible based on patient's age to complete this topic Rotavirus Vaccines Aged Out No longer eligible based on patient's age to complete this topic Procedures Procedure Name Priority Date/Time Associated Diagnosis Comments Full PROPHYLAXIS - ADULT Routine 024 10:50 AM EDT PERIODIC ORAL EVALUATION - ESTABLISHED PATIENT Routine 08/31/2024 10:50 AM EDT BITEWINGS - 4 RADIOGRAPHIC IMAGES Routine 01/28/2024 2:00 PM EDT INTRAORAL - COMPLETE SERIES OF RADIOGRAPHIC IMAGES Routine 01/01/2023 10:50 AM EST Encounter for dental examination from Last 3 Months or Most Recently Relevant to Health Maintenance Insurance DENTAL - [facility] RODNEY Ramos [id number]
--- OUTSIDE RECORDS SUMMARY | 2025-02-07 10:14 | XMS_ITS | Encounter Summary ---
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 Role Phone Unavailable Primary Care Provider Unavailabl e Encounter Details Date Type Department Care Team (Latest Contact Info) Description 04/13/2019 Abstract [facility] CONVERSIONS Dental, Provider, DDS Social History Tobacco Use Types Packs/Day Years Used Date Smoking Tobacco: Never Assessed Comments Unknown Sex and Gender Information Value Date Recorded Sex Assigned at Choose not to disclose 3:44 PM EST Legal Sex Male 5:36 PM EDT Gender Identity Choose not to disclose 3:44 PM EST Sexual Orientation Choose not to disclose 2022 3:44 PM EST documented as of this encounter Plan of Treatment Upcoming Encounters Date Type Department Care Team (Late st Contact Info) Description 08/23/2025 12:00 PM EDT Office Visit [facility] DENTAL [address] [place] [address] Sayra Marino documented as of this encounter Visit Diagnoses Not on filedocumented in this encounter
--- OUTSIDE RECORDS SUMMARY | 2025-02-07 10:14 | XMS_ITS | Continuity of Care Document ---
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 It does not include entries that were removed or entered in error. Problem Status Onset Date Problem Type Date of Resolution Comments Source Encounter for examination and observation for other specified reasons Active 4 Diagnosis [id number]-[facility] [place] Episodic tension-type headache Active Condition Jan 07, 2024 Entered By: NICOLAS PENNINGTON Comment: Average Twice Week; No Red Flags ; No Aura; No Consistent Triggers;Jan 07, 2024 Entered By: NICOLAS PENNINGTON Comment: APAP Relieves ANTHONY ROBELINE Exposure to potentially hazardous substance Active Condition Jan 07, 2024 Entered By: NICOLAS PENNINGTON Comment: [place]; also Ionized Radiation ROBELINE Low back pain Active Condition Dec Entered By: NICOLAS PENNINGTON Comment: Non-Radicular LBP; No Direct Trauma; Gradual Onset Over Time in [facility] Pain in right hip joint Active Condition Jan 07, 2024 Entered By: NICOLAS PENNINGTON Comment: No Acute Hip Injuries; PT Abates Pain; Onset Over the Years in [facility] Recurrent dislocation of shoulder region Active Condition Feb 10, 2024 Entered By: YARED DUMONT Comment: right [facility] Rupture of anterior cruciate ligament Active Condition Jan 07, 2024 Entered By: NICOLAS PENNINGTON Comment: Complete Tear ACL, L Knee; Tear Demonstrated on MRI approx 2023 Entered By: NICOLAS PENNINGTON Comment: No Acute Tear of ACL; Gradual Onset Over Yrs in the [facility] Tinnitus Active Condition Dec 24 Entered By: NICOLAS PENNINGTON Comment: 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 Diagnosis: ICD-10-CM M25.561 Pain in right knee Active Diagnosis ROBELINE Diagnosis: ICD-10-CM Z71.89 Other specified counseling Active Diagnosis [facility] Diagnosis: ICD-10-CM M54.50 Low back pain, unspecified Active Diagnosis ROBELINE Immunizations Combined list of available immunizations from the 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 Immunization Series Date Given Administered By Site Reaction Lot Number CVX Code Drug Cement Rubber Status Comments Source INFLUENZA, UNSPECIFIED FORMULATION 2022 88 complet ed [facility] influenza, injectable, quadrivalent- pf 2021 [id number] GlaxoSmithKli ne complet ed influenza , injectabl e, quadrival ent-pf 09/10/22 Given Ambulat ory Pharmac y tetanus, diphtheria, acellular pertu is 2020 [id number] 115 sanofi pasteur complet ed tetanus, diphtheri a, acellular pertussis 09/13/21 Given Ambulat ory Pharmac y TDAP 2020 115 complet ed [facility] COVID Vaccine Moderna 2020 [id number] 207 complet ed COVID Vaccine Moderna 01/04/21 Given Ambulat ory Pharmac y COVID-19 (MODERNA), MRNA, LNP-S, PF, 100 MCG/0.5ML DOSE OR 50 MCG/0.25ML DOSE 2 2020 207 complet ed [facility] COVID-19 (PFIZER), MRNA, LNP-S, PF, 30 MCG/0.3 ML DOSE 2 2020 208 complet ed [facility] COVID Vaccine Moderna 2020 [id number] 207 complet ed COVID Vaccine Moderna 12/04/20 Given Ambulat ory Pharmac y COVID-19 (MODERNA), MRNA, LNP-S, PF, 100 MCG/0.5ML DOSE OR 50 MCG/0.25ML DOSE 1 2020 207 complet ed [facility] [place] [facility] COVID-19 (PFIZER), MRNA, LNP-S, PF, 30 MCG/0.3 ML DOSE 1 2020 208 complet ed [place] [facility] measles/mumps /rubella virus vaccine 2019 [id number] Merck [employer] Company Inc complet ed measles/m umps/rube lla virus vaccine 12/13/19 Given Ambulat ory Pharmac y meningococcal A,C,Y,W-135 (MCV4P) 2019 [id number] 114 sanofi pasteur complet ed meningoco ccal A,C,Y,W-1 35 (MCV4P) 12/13/19 Given Ambulat ory Pharmac y typhoid Vi capsular polysaccharid e vac 2019 [id number] sanofi pasteur complet ed typhoid Vi capsular polysacch aride vac 12/13/19 Given Ambulat ory Pharmac y influenza, injectable, quadrivalent- pf 2018 [id number] 150 Seqirus complet ed influenza , injectabl e, quadrival ent-pf 10/12/19 Given Ambulat ory Pharmac y influenza, seasonal, injectable 2017 [id number] 141 Seqirus complet ed influenza , seasonal, injectabl e 09/01/18 Given Ambulat ory Pharmac y influenza, injectable, quadrivalent- pf 2017 150 Seqirus complet ed influenza , injectabl e, quadrival ent-pf 09/01/18 Given Ambulat ory Pharmac y Influenza, inj, MDCK, quadrivalent- pf 2016 [id number] 171 Seqirus complet ed Influenza , inj, MDCK, quadrival ent-pf 10/26/17 Given Ambulat ory Pharmac y influenza, seasonal, injectable 2015 [id number] 141 Seqirus complet ed influenza , seasonal, injectabl e 08/12/16 Given Ambulat ory Pharmac y influenza, live, intranasal,qu adrivalent 2014 [id number] 149 mmCHANNEL Inc comple t ed influenza , live, intranasa l,quadriv alent 08/31/15 Given Ambulat ory Pharmac y rabies vaccine, IM 2014 [id number] 175 Novartis NVMdurancetica ls complet ed rabies vaccine, IM 03/22/15 Given Ambulat ory Pharmac y Colombian Encephalitis IM 2014 [id number] 134 Valneva complet ed [place] Encephali tis IM 01/05/15 Given Ambulat ory Pharmac y influenza, live, intranasal,qu adrivalent 2013 [id number] 149 Medimmune Inc comple t ed influenza , live, intranasa l,quadriv alent 08/24/14 Given Ambulat ory Pharmac y [place]ian Encephalitis IM 2012 [id number] 134 Valneva complet ed [place] Encephali tis IM 08/11/13 Given Ambulat ory Pharmac y influenza, live, intranasal,qu adrivalent 2012 [id number] 149 Medimmune Inc comple t ed influenza , live, intranasa l,quadriv alent 08/09/13 Given Ambulat ory Pharmac y [place] Encephalitis IM 2012 [id number] 134 Valneva complet ed [place] Encephali tis IM 04/28/13 Given Ambulat ory Pharmac y rabies vaccine, IM 2012 [id number] 175 sanofi pasteur complet ed rabies vaccine, IM 04/21/13 Given Ambulat ory Pharmac y typhoid Vi capsular polysaccharid e vac 2012 [id number] 101 sanofi pasteur complet ed typhoid Vi capsular polysacch aride vac 03/16/13 Given Ambulat ory Pharmac y rabies vaccine, IM 2012 [id number] 175 Novartis Pharmaceutica ls complet ed rabies vaccine, IM 03/16/13 Given Ambulat ory Pharmac y meningococcal A,C,Y,W-135 (MCV4P) 2012 [id number] 114 sanofi pasteur complet ed meningoco ccal A,C,Y,W-1 35 (MCV4P) 03/16/13 Given Ambulat ory Pharmac y influenza virus vaccine, live 2011 [id number] 111 Medimmune Inc comple t ed influenza virus vaccine, live 09/22/12 Given Ambulat ory Pharmac y tuberculin purified protein derivative 2010 [id number] 96 sanofi pasteur complet ed tuberculi n purified protein derivativ e 08/19/11 Given Ambulat ory Pharmac y tetanus, diphtheria, acellular pertu is 2010 [id number] 115 sanofi pasteur complet ed tetanus, diphtheri a, acellular pertussis 08/19/11 Given Ambulat ory Pharmac y typhoid Vi capsular polysaccharid e vac 2010 [id number] 101 sanofi pasteur complet ed typhoid Vi capsular polysacch aride vac 08/19/11 Given Ambulat ory Pharmac y anthrax vaccine 2010 [id number] 24 Emergent Biosolutions complet ed anthrax vaccine 08/19/11 Given Ambulat ory Pharmac y TDAP 2010 115 complet ed [facility] influenza virus vaccine, live 2010 [id number] 111 mmCHANNEL Inc comple t ed influenza virus vaccine, live 07/24/11 Given Ambulat ory Pharmac y anthrax vaccine 2009 [id number] 24 Emergent [employer]olutions complet ed anthrax vaccine 07/30/10 Given Ambulat ory Pharmac y influenza virus vaccine, live 2009 111 complet ed influenza virus vaccine, live 07/12/10 Given Ambulat ory Pharmac y anthrax vaccine 2009 [id number] Emergent [employer] complet ed anthrax vaccine 01/21/10 Given Ambulat ory Pharmac y Novel influenza-H1N 1-09,pf,injec table 2008 [id number] 126 Novartis Pharmaceutica ls complet ed Novel influenza -[id number], pf,inject able 09/25/09 Given Ambulat ory Pharmac y influenza virus vaccine,split 2008 [id number] 15 sanofi pasteur complet ed influenza virus vaccine,s plit 09/25/09 Given Ambulat ory Pharmac y anthrax vaccine 2008 [id number] 24 Emergent [employer]olutions complet ed anthrax vaccine 07/11/09 Given Ambulat ory Pharmac y typhoid Vi capsular polysaccharid e vac 2008 [id number] 101 sanofi pasteur complet ed typhoid Vi capsular polysacch aride vac 11/15/08 Given Ambulat ory Pharmac y influenza virus vaccine, live 2007 [id number] 111 Medimmune Inc comple t ed influenza virus vaccine, live 09/06/08 Given Ambulat ory Pharmac y yellow fever vaccine 2007 [id number] 37 sanofi pasteur complet ed yellow fever vaccine 12/09/07 Given Ambulat ory Pharmac y influenza virus vaccine, live 2006 [id number] 111 Triloq comple t ed influenza virus vaccine, live 10/04/07 Given Ambulat ory Pharmac y anthrax vaccine 2006 [id number] 24 Emergent Biosolutions complet ed anthrax vaccine 02/16/07 Given Ambulat ory Pharmac y anthrax vaccine 2006 [id number] 24 Emergent Bios[employer] complet ed anthrax vaccine 01/18/07 Given Ambulat ory Pharmac y influenza virus vaccine,split 2005 [id number] 15 sanofi pasteur complet ed influenza virus vaccine,s plit 10/28/06 Given Ambulat ory Pharmac y typhoid vaccine, parenteral 2005 [id number] 41 sanofi pasteur complet ed typhoid vaccine, parentera l 09/10/06 Given Ambulat ory Pharmac y anthrax vaccine 2005 [id number] 24 Emergent Biosolutions complet ed anthrax vaccine 09/10/06 Given Ambulat ory Pharmac y vaccinia (smallpox) vaccine, diluted 2005 [id number] 105 Magin complet ed vaccinia (smallpox ) vaccine, diluted 09/10/06 Given Ambulat ory Pharmac y influenza virus vaccine,split 2004 [id number] 15 sanofi pasteur complet ed influenza virus vaccine,s plit 10/10/05 Given Ambulat ory Pharmac y hepatitis A-hepatitis B vaccine 2004 [id number] 104 GlaxoSmithKli ne complet ed hepatitis A-hepatit is B vaccine 02/13/05 Given Ambulat ory Pharmac y influenza virus vaccine, whole virus 2004 [id number] 16 sanofi pasteur complet ed influenza virus vaccine, whole virus 02/13/05 Given Ambulat ory Pharmac y HEP A-HEP B 2004 104 complet ed [facility] hepatitis A-hepatitis B vaccine 2003 [id number] 104 GlaxoSmithKli ne complet ed hepatitis A-hepatit is B vaccine 02/17/04 Given Ambulat ory Pharmac y HEP A-HEP B 2003 104 complet ed [facility] hepatitis A-hepatitis B vaccine 2003 [id number] 104 GlaxoSmithKli ne complet ed hepatitis A-hepatit is B vaccine 01/17/04 Given Ambulat ory Pharmac y HEP A-HEP B 2003 104 complet ed [facility] VAR[facility]A 2003 21 complet [facility] tuberculin purified protein derivative 2003 [id number] 96 sanofi pasteur complet ed tuberculi n purified protein derivativ e 01/09/04 Given Ambulat ory Pharmac y tetanus-dipht h toxoids (Td) adult/adol 2003 [id number] 09 sanofi pasteur complet ed tetanus-d iphth toxoids (Td) adult/ado l 01/09/04 Given Ambulat ory Pharmac y poliovirus vaccine, inactivated 2003 [id number] 10 sanofi pasteur complet ed polioviru s vaccine, inactivat ed 01/09/04 Given Ambulat ory Pharmac y influenza virus vaccine, whole virus 2003 [id number] 16 Novartis Pharmaceutica ls complet ed influenza virus vaccine, whole virus 01/09/04 Given Ambulat ory Pharmac y meningococcal polysaccharid e (MPSV4) 2003 [id number] 32 sanofi pasteur complet ed meningoco ccal polysacch aride (MPSV4) 01/09/04 Given Ambulat ory Pharmac y TDAP 2003 115 complet ed [facility] Results Combined list of recent chemistry, hematology [...] for proper notificatio n. Testing [facility] [place] [facility] [place] [id number] EP[facility] TSH THYROTROPI N [UNITS/VOL UME] IN SERUM OR PLASMA 2.00 u[IU]/mL 0.35 - 5.00 01/31 Specimen Type: SERUM No comment entered. Ordering Provider: NICOLAS PENNINGTON Report Released Date/Time: Jan 07, 2024 11:45 AM Reporting Lab: [facility] [address] [address] Performing Lab: [facility] [employer] [address] [place] HEPATITI S C ANTIBODY (HCV)-AR C HEPATITIS C VIRUS AB [PRESENCE] IN SERUM NON-REAC TIVE 01/31 Specimen Type: SERUM Comment: Hep C Ab: No HCV antibody detected. If recent infection is suspected or other evidence suggests HCV infection, consider HCV nucleic acid testing Ordering Provider: NICOLAS PENNINGTON Report Released Date/Time: Jan 07, 2024 11:42 AM Reporting Lab: [facility] [address] [address] Performing Lab: [facility] [address] [place] HIV 1&2 Ag/Ab SCREEN HIV 1+2 AB+HIV1 P24 AG [PRESENCE] IN SERUM OR PLASMA BY IMMUNOASSA Y NON-REAC TIVE 01/31 Specimen Type: SERUM No comment entered. Ordering Provider: NICOLAS PENNINGTON Report Released Date/Time: Jan 07, 2024 11:42 AM Reporting Lab: [facility] [address] [address] Performing Lab: [facility] [employer] [address] [place] LIPID PANEL FASTING CHOLESTERO L [MASS/VOLU ME] IN SERUM OR PLASMA 155 mg/dL 01/31 Specimen Type: SERUM Comment: Hep C Ab: No HCV antibody detected. If recent infection is suspected or other evidence suggests HCV infection, consider HCV nucleic acid testing Ordering Provider: NICOLAS PENNINGTON Report Released Date/Time: Jan 07, 2024 11:42 AM Reporting Lab: [address] [address] Performing Lab: [address] [address] [place] LIPID PANEL FASTING TRIGLYCERI DE [MASS/VOLU ME] IN SERUM OR PLASMA 55 mg/dL 0 - 150 01/31 Specimen Type: SERUM Comment: Hep C Ab: No HCV antibody detected. If recent infection is suspected or other evidence suggests HCV infection, consider HCV nucleic acid testing Ordering Provider: NICOLAS PENNINGTON Report Released Date/Time: Jan 07, 2024 11:42 AM Reporting Lab: [address] [address] Performing Lab: [address] [address] [place] LIPID PANEL FASTING CHOLESTERO L [...] Jan 07, 2024 11:42 AM Reporting Lab: [address] [address] Performing Lab: [address] [address] [place] LIPID PANEL FASTING CHOLESTERO L.TOTAL/CH OLESTEROL IN HDL [MASS RATIO] IN SERUM OR PLASMA 3.1 01/31 Specimen Type: SERUM Comment: Hep C Ab: No HCV antibody detected. If recent infection is suspected or other evidence suggests HCV infection, consider HCV nucleic acid testing Ordering Provider: NICOLAS PENNINGTON Report Released Date/Time: Jan 07, 2024 11:42 AM Reporting Lab: [address] [address] Performing Lab: [facility] [address] [address] [place] LIPID PANEL FASTING CHOLESTERO L IN HDL [MASS/VOLU ME] IN SERUM OR PLASMA 50 mg/dL 40 - 60 01/31 Specimen Type: SERUM Comment: Hep C Ab: No HCV antibody detected. If recent infection is suspected or other evidence suggests HCV infection, consider HCV nucleic acid testing Ordering Provider: NICOLAS PENNINGTON Report Released Date/Time: Jan 07, 2024 11:42 AM Reporting Lab: [facility] [address] [address] Performing Lab: [address] [address] [place] URINALYS IS COLOR OF URINE Light-Ye llow 01/31 Specimen Type: URINE Comment: If Glucose = >500 and Ketones are positive, please alert the Physician. Ordering Provider: NICOLAS PENNINGTON Report Released Date/Time: Jan 07, 2024 11:45 AM Reporting Lab: [facility] [address] [address] Performing Lab: [address] [address] [place] URINALYS IS APPEARANCE OF URINE Clear 01/31 Specimen Type: URINE Comment: If Glucose = >500 and Ketones are positive, please alert the Physician. Ordering Provider: NICOLAS PENNINGTON Report Released Date/Time: Jan 07, 2024 11:45 AM Reporting Lab: [address] [address] Performing Lab: [address] [address] [place] URINALYS IS GLUCOSE [MASS/VOLU ME] IN URINE NEGATIVE mg/dL 01/31 Specimen Type: URINE Comment: If Glucose = >500 and Ketones are positive, please alert the Physician. Ordering Provider: NICOLAS PENNINGTON Report Released Date/Time: Jan 07, 2024 11:45 AM Reporting Lab: [address] [address] Performing Lab: [facility] [address] [address] [place] URINALYS IS KETONES [MASS/VOLU ME] IN URINE BY TEST STRIP NEGATIVE mg/dL 01/31 Specimen Type: URINE Comment: If Glucose = >500 and Ketones are positive, please alert the Physician. Ordering Provider: NICOLAS PENNINGTON Report Released Date/Time: Jan 07, 2024 11:45 AM Reporting Lab: [facility]TR[facility] [address] [address] Performing Lab: [facility] [address] [place] URINALYS IS ERYTHROCYT ES [PRESENCE] IN URINE SEDIMENT BY LIGHT MICROSCOPY NEGATIVE mg/dL 01/31 Specimen Type: URINE Comment: If Glucose = >500 and Ketones are positive, please alert the Physician. Ordering Provider: NICOLAS PENNINGTON Report Released Date/Time: Jan 07, 2024 11:45 AM Reporting Lab: [facility] [address] [address] Performing Lab: [facility] [address] [address] [place] URINALYS IS PROTEIN [MASS/VOLU ME] IN URINE BY TEST STRIP NEGATIVE mg/dL 01/31 Specimen Type: URINE Comment: If Glucose = >500 and Ketones are positive, please alert the Physician. Ordering Provider: NICOLAS PENNINGTON Report Released Date/Time: Jan 07, 2024 11:45 AM Reporting Lab: [facility]TR[facility] [address] Performing Lab: [facility] [address] [place] URINALYS IS NITRITE [PRESENCE] IN URINE NEGATIVE mg/dL 01/31 Specimen Type: URINE Comment: If Glucose = >500 and Ketones are positive, please alert the Physician. Ordering Provider: NICOLAS PENNINGTON Report Released Date/Time: Jan 07, 2024 11:45 AM Reporting Lab: [facility] [address] [address] Performing Lab: [address] [address] [place] URINALYS IS BILIRUBIN. TOTAL [PRESENCE] IN URINE NEGATIVE mg/dL 01/31 Specimen Type: URINE Comment: If Glucose = >500 and Ketones are positive, please alert the Physician. Ordering Provider: NICOLAS PENNINGTON Report Released Date/Time: Jan 07, 2024 11:45 AM Reporting Lab: [address] [address] Performing Lab: [address] [address] [place] URINALYS IS SPECIFIC GRAVITY OF URINE BY REFRACTOME TRY 1.025 1.016 - 1.022 01/31 H Specimen Type: URINE Comment: If Glucose = >500 and Ketones are positive, please alert the Physician. Ordering Provider: NICOLAS PENNINGTON Report Released Date/Time: Jan 07, 2024 11:45 AM Reporting Lab: [address] [address] Performing Lab: [address] [address] [place] URINALYS IS PH OF URINE BY TEST STRIP 6.0 5.0 - 9.0 01/31 Specimen Type: URINE Comment: If Glucose = >500 and Ketones are positive, please alert the Physician. Ordering Provider: NICOLAS PENNINGTON Report Released Date/Time: Jan 07, 2024 11:45 AM Reporting Lab: [address] [address] Performing Lab: [address] [address] [place] URINALYS IS UROBILINOG EN [MASS/VOLU ME] IN URINE BY TEST STRIP <2.0mg/d L <2.0 - 2.0 01/31 Specimen Type: URINE Comment: If Glucose = >500 and Ketones are positive, please alert the Physician. Ordering Provider: NICOLAS PENNINGTON Report Released Date/Time: Jan 07, 2024 11:45 AM Reporting Lab: [facility]ITALR[facility]ITALTRN [facility]ETS [facility] [address] [facility] [address] Performing Lab: [facility]ITALRW[facility]N [facility] [address] [place] URINALYS IS LEUKOCYTE ESTERASE [PRESENCE] IN URINE BY TEST STRIP NEGATIVE 01/31 Specimen Type: URINE Comment: If Glucose = >500 and Ketones are positive, please alert the Physician. Ordering Provider: NICOLAS PENNINGTON Report Released Date/Time: Jan 07, 2024 11:45 AM Reporting Lab: [facility]ITALRHE[facility]LL[facility] HOSPITALTRN [address] [address] Performing Lab: [facility]ITALR[facility]ITALTRN [facility] [address] [place] MICROALB UMIN CREATINI NE RATIO PANEL MICROALBUM IN/CREATIN INE [MASS RATIO] IN URINE 3.1 mg/g 0 - 29.9 01/31 Specimen Type: URINE No comment entered. Ordering Provider: NICOLAS PENNINGTON Report Released Date/Time: Jan 07, 2024 11:45 AM Reporting Lab: [facility]ITALR[facility]TRN [facility] [address] Performing Lab: [facility]ITALR[facility]ITALTRN [facility] [address] [place] MICROALB UMIN CREATINI NE RATIO PANEL MICROALBUM IN [MASS/VOLU ME] IN URINE 0.5 mg/dL 01/31 Specimen Type: URINE No comment entered. Ordering Provider: NICOLAS PENNINGTON Report Released Date/Time: Jan 07, 2024 11:45 AM Reporting Lab: [facility]ITALRL TRN [facility]ETS [address] [address] Performing Lab: [facility]ITALRL TRN [facility]ETS [address] [address] [place] MICROALB UMIN CREATINI NE RATIO PANEL CREATININE [MASS/VOLU ME] IN URINE 160.64 mg/dL 01/31 Specimen Type: URINE No comment entered. Ordering Provider: NICOLAS PENNINGTON Report Released Date/Time: Jan 07, 2024 11:45 AM Reporting Lab: [facility] [address] [address] Performing Lab: [facility] [address] [address] [place] BASIC METABOLI C PANEL (fasting ) UREA NITROGEN [MASS/VOLU ME] IN SERUM OR PLASMA 15 mg/dL 7 - 25 01/31 Specimen Type: SERUM Comment: Hep C Ab: No HCV antibody detected. If recent infection is suspected or other evidence suggests HCV infection, consider HCV nucleic acid testing Ordering Provider: NICOLAS PENNINGTON Report Released Date/Time: Jan 07, 2024 11:45 AM Reporting Lab: [address] [address] Performing Lab: [address] [address] [place] BASIC METABOLI C PANEL (fasting ) GLUCOSE [MASS/VOLU ME] IN SERUM OR PLASMA 96 mg/dL 65 - 100 01/31 Specimen Type: SERUM Comment: Hep C Ab: No HCV antibody detected. If recent infection is suspected or other evidence suggests HCV infection, consider HCV nucleic acid testing Ordering Provider: NICOLAS PENNINGTON Report Released Date/Time: Jan 07, 2024 11:45 AM Reporting Lab: [address] [address] Performing Lab: [address] [address] [place] BASIC METABOLI C PANEL (fasting ) SODIUM [MOLES/VOL UME] IN SERUM OR PLASMA 140 mmol/L 135 - 145 01/31 Specimen Type: SERUM Comment: Hep C Ab: No HCV antibody detected. If recent infection is suspected or other evidence suggests HCV infection, consider HCV nucleic acid testing Ordering Provider: NICOLAS PENNINGTON Report Released Date/Time: Jan 07, 2024 11:45 AM Reporting Lab: [address] [address] Performing Lab: [facility] [address] [address] [place] BASIC METABOLI C PANEL (fasting ) POTASSIUM [MOLES/VOL UME] IN SERUM OR PLASMA 4.1 mmol/L 3.5 - 5.0 01/31 Specimen Type: SERUM Comment: Hep C Ab: No HCV antibody detected. If recent infection is suspected or other evidence suggests HCV infection, consider HCV nucleic acid testing Ordering Provider: NICOLAS PENNINGTON Report Released Date/Time: Jan 07, 2024 11:45 AM Reporting Lab: [facility] [address] [facility] [address] Performing Lab: [address] [address] [place] BASIC METABOLI C PANEL (fasting ) CHLORIDE [MOLES/VOL UME] IN SERUM OR PLASMA 106 mmol/L 100 - 110 01/31 Specimen Type: SERUM Comment: Hep C Ab: No HCV antibody detected. If recent infection is suspected or other evidence suggests HCV infection, consider HCV nucleic acid testing Ordering Provider: NICOLAS PENNINGTON Report Released Date/Time: Jan 07, 2024 11:45 AM Reporting Lab: [address] [address] Performing Lab: [address] [address] [place] BASIC METABOLI C PANEL (fasting ) CARBON DIOXIDE, TOTAL [MOLES/VOL UME] IN SERUM OR PLASMA 24 meq/L 20 - 30 01/31 Specimen Type: SERUM Comment: Hep C Ab: No HCV antibody detected. If recent infection is suspected or other evidence suggests HCV infection, consider HCV nucleic acid testing Ordering Provider: NICOLAS PENNINGTON Report Released Date/Time: Jan 07, 2024 11:45 AM Reporting Lab: [address] [address] Performing Lab: [address] [address] [place] BASIC METABOLI C PANEL (fasting ) CREATININE [MASS/VOLU ME] IN SERUM OR PLASMA 1.03 mg/dL 0.50 - 1.40 03/25 /2024 Specimen Type: SERUM Comment: Hep C Ab: No HCV antibody detected. If recent infection is suspected or other evidence suggests HCV infection, consider HCV nucleic acid testing Ordering Provider: NICOLAS PENNINGTON Report Released Date/Time: Jan 07, 2024 11:45 AM Reporting Lab: [facility] [address] [facility] [address] Performing Lab: [address] [address] [place] Mantis Deposition BASIC METABOLI C PANEL (fasting ) GLOMERULAR [...] Jan 07, 2024 11:45 AM Reporting Lab: [facility] [address] [facility] [address] Performing Lab: [facility] [address] [facility] [address] [place] LIVER FUNCTION PROTEIN [MASS/VOLU ME] IN SERUM OR PLASMA 7.0 g/dL 6.0 - 8.3 01/31 Specimen Type: SERUM Comment: Hep C Ab: No HCV antibody detected. If recent infection is suspected or other evidence suggests HCV infection, consider HCV nucleic acid testing Ordering Provider: NICOLAS PENNINGTON Report Released Date/Time: Jan 07, 2024 11:45 AM Reporting Lab: [facility] [address] [facility] [address] Performing Lab: [address] [address] [place] LIVER FUNCTION ALBUMIN [MASS/VOLU ME] IN SERUM OR PLASMA 4.4 g/dL 3.5 - 5.0 01/31 Specimen Type: SERUM Comment: Hep C Ab: No HCV antibody detected. If recent infection is suspected or other evidence suggests HCV infection, consider HCV nucleic acid testing Ordering Provider: NICOLAS PENNINGTON Report Released Date/Time: Jan 07, 2024 11:45 AM Reporting Lab: [facility] [address] [facility] [address] Performing Lab: [facility] [address] [facility] [address] [place] LIVER FUNCTION ALKALINE PHOSPHATAS E [ENZYMATIC ACTIVITY/V OLUME] IN SERUM OR PLASMA 64 U/L 40 - 150 01/31 Specimen Type: SERUM Comment: Hep C Ab: No HCV antibody detected. If recent infection is suspected or other evidence suggests HCV infection, consider HCV nucleic acid testing Ordering Provider: NICOLAS PENNINGTON Report Released Date/Time: Jan 07, 2024 11:45 AM Reporting Lab: [facility]N [facility] [address] Performing Lab: [facility]ITALRW[facility]OS[facility]ITALN [address] [address] [place]IVER FUNCTION ASPARTATE AMINOTRANS FERASE [ENZYMATIC ACTIVITY/V OLUME] IN SERUM OR PLASMA 17 U/L 5 - 34 01/31 Specimen Type: SERUM Comment: Hep C Ab: No HCV antibody detected. If recent infection is suspected or other evidence suggests HCV infection, consider HCV nucleic acid testing Ordering Provider: NICOLAS PENNINGTON Report Released Date/Time: Jan 07, 2024 11:45 AM Reporting Lab: [facility]ITALN [facility] [address] Performing Lab: [facility]ITAL[facility]ITALN [facility] [address] [place] LIVER FUNCTION ALANINE AMINOTRANS FERASE [ENZYMATIC ACTIVITY/V OLUME] IN SERUM OR PLASMA 27 U/L 01/31 Specimen Type: SERUM Comment: Hep C Ab: No HCV antibody detected. If recent infection is suspected or other evidence suggests HCV infection, consider HCV nucleic acid testing Ordering Provider: NICOLAS PENNINGTON Report Released Date/Time: Jan 07, 2024 11:45 AM Reporting Lab: [facility]N [facility] [address] Performing Lab: [facility]ITAL[facility]N [place] [facility] [address] [facility] [address] [place] LIVER FUNCTION BILIRUBIN. TOTAL [MASS/VOLU ME] IN SERUM OR PLASMA 1.1 mg/dL 0.2 - 1.2 01/31 Specimen Type: SERUM Comment: Hep C Ab: No HCV antibody detected. If recent infection is suspected or other evidence suggests HCV infection, consider HCV nucleic acid testing Ordering Provider: NICOLAS PENNINGTON Report Released Date/Time: Jan 07, 2024 11:45 AM Reporting Lab: [facility] [address] Performing Lab: [facility] [address] [place] CALCIUM CALCIUM [MASS/VOLU ME] IN SERUM OR PLASMA 9.2 mg/dL 8.5 - 10.2 01/31 Specimen Type: SERUM No comment entered. Ordering Provider: NICOLAS PENNINGTON Report Released Date/Time: Jan 07, 2024 11:45 AM Reporting Lab: [facility] [address] Performing Lab: [facility] [address] [place] URIC ACID URATE [MASS/VOLU ME] IN SERUM OR PLASMA 5.1 mg/dL 3.5 - 7.2 01/31 Specimen Type: SERUM No comment entered. Ordering Provider: NICOLAS PENNINGTON Report Released Date/Time: Jan 07, 2024 11:45 AM Reporting Lab: [facility] [address] [address] Performing Lab: [facility] [address] [place] Infectio us Disease HIV-1/O/2 Non-Reac tive 2 [...] Prevention' s HIV diagnostic algorithm. Refer to [facility] Lab Guide for additional information : [email or web address]/ [email or web address] [email or web address]/la [email or web address] x Testing performed by Luis Armando perez [employer] Miscella neous Sendouts Repository Sample Received ( 3 10:10 AM) 09/01 Kirstin [employer] Vital Signs Combined list of inpatient and outpatient Vital Signs from Department of Defense and Veterans Affairs, ranging from 12 months to all on record, depending upon the facility. Vital Sign Value Date Comments Source SYSTOLIC BLOOD PRESSURE 120 02/08/2024 10:31:11 [place] DIASTOLIC BLOOD PRESSURE 77 02/08/2024 10:31:11 [place] PULSE OXIMETRY 100 02/08/2024 10:31:11 [facility] 211 02/08/2024 10:31:11 [place] BMI 30 kg/m2 02/08/2024 10:31:11 [place] HEIGHT 70 02/08/2024 10:31:11 [place] TEMPERATURE 97.7 02/08/2024 10:31:11 [place] PULSE 68 02/08/2024 10:31:11 [place] RESPIRATION 19 02/08/2024 10:31:11 [place] Encounters Combined list of: 1) Encounters from Department of Veterans Affairs facilities going backup to the last 18 months, not all [place] inpatient encounters are included; 2) Encounters from the Department of Defense facilities going backup to 280 months. Location Location Details Encounter Type Encounter Number Reason For Visit Attending Provider ADM Date DC Date Status Disposition Source [facility] Encounter [id number] 09/09 [facility] En[facility] [id number] 12/18 [facility] Encounter [id number] 12/18 [facility] 30 MIN [id number] Diagnos is: ICD-10- CM M54.50 Low back pain, unspeci edmund PENNINGTONPARTHA [place] [facility] CASE MANAGEMENT [id number] Diagnos is: ICD-10- CM Z71.89 Other specifi ed primary counselor GONZALEZ Roberts 01/10 [facility] Out[facility] Encounter [id number] 01/20 [facility] En[facility] [id number] 01/26 [facility] Encounter [id number] 02/07 [facility] O/P EST MOD 30 MIN [id number] Diagnos is: ICD-10- CM M25.561 Pain in right knee JOHNNY DUMONT 02/07 [place] [facility] OFF[facility] O/P NEW MOD 45 MIN [id number] Diagnos is: ICD-10- CM M54.59 Other low back pain HEMANT BUTTS RA 03/02 [facility] Outpatient Encounter [id number] 03/07 [facility] THERAPEUTI C ACTIVITIES [id number] Diagnos is: ICD-10- CM M54.59 Other low back pain HEMANT BUTTS RA 03/24 [facility] MECHANICAL TRACTION THERAPY [id number] Diagnos is: ICD-10- CM M54.59 Other low back pain HEMANT BUTTS RA 03/30 [facility] Outpatient Encounter [id number] 04/06 [facility] Outpatient Encounter [id number] 05/19 [facility] [id number] AMDS Outpatient [id number] CORWIN HANCOCKSerafin 09/11 Discharge Disposition: Home or Self Care 8344R-4 39 [id number] for examina tion and observa tion for other specifi ed reasons DEMETRIS DUMONT 09/20 Discharge Disposition: Home or Self Care 0035C-N [facility] 8344R-439 AMDS Between Visit [id number] 09/27 Discharge Disposition: Home or Self Care 8344R-4 39 AMDS 8344R-439 AMDS Between Visit [id number] 10/15 Discharge Disposition: Home or Self Care 8344R-4 39 AMDS 8344R-439 AMDS Between Visit [id number] 10/15 Discharge Disposition: Home or Self Care 8344R-4 39 AMDS [facility] Encounter [id number] 01/31 [facility] Procedures Combined list of: 1) Procedures from Department of Veterans Affairs facilities going back up to thelast 18 months, not all VA non-surgical procedures are included; 2) All procedures from the Department of Defense facilities. Procedure Procedure Type Code Date Perfomer Comments Sourc e No data available for this section Ambulatory P harmacy Social History Combined list of available smoking, tobacco, and other social history from 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 Social History Type Response Date Comment Sourc e Tobacco smoking status [facility] NEVER USED 01/07/2024 ROBELINE Sex Representation Male (finding) 11/20/2022 Un known Organization Sexual Orientation Ambula tory Pharmacy Gender identity Ambulator y Pharmacy Assessment and Plan Combined list of future care activities from Department of Defense and Veterans Affairs facilities (e.g., assessment and plan notes, appointments, orders, and referrals). Additional future care activities may be listed in the Plan of Care section. Result Assessment and Plan Date Source Assessment and Plan Extracted from:Title : Office Clinic Note Author: ONOFRE VILLA Date: 09/20/24 Encounter for examination and observation for other specified reasons Hearing threshold stable. Patient's left ear reference audiogram was re-established after follow-up program. A copy of hearing test was given to patient and uploaded into [employer]. Onofre Villa, Rig Hand Senior Research Manager [facility], [place], [place] ? ? Extracted from:Title: PHA / [...] Problems: ?n/a 507: _ Comments: Addendum by CORWIN ORTIZ MD on September 10, 2024 11:09 EDT Chief Complaint: Member here for annual PHA.?No acute complaints.?IMR?green. HEENT:?Normal Joints:?Normal Lungs:?Normal Heart:?Normal Comments: ANNUAL PERIODIC HEALTH ASSESSMENT I. BONDING AGENT INFORMATION AND DEMOGRAPHICS (SMI) 1. Last Name: THERESA 2. First Name: DOMINIQUE 3. Middle Name: CLAUDIA 4. Assessment Date: 5. : 6. Age: 39 7. Gender: M 8. DoD ID Number: [id number] 9. Service Branch: [employer] 10. 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 Duty Station/Location: [place] 15. [facility]: [id number] 16. Is this your first Periodic Health Assessment (PHA)?: N 17. Are you enrolled in a secure messaging system with your health care provider?: Y 18. Current contact information: Preferred Method: Day Time Phone DSN: Day Time Phone: [phone] Night Time Phone: [phone] Email 1: [email or web address] Email 2: Address: [address] [place] [address]: [facility]: [place] Zip Code: [address] 19. Point of contact who can always reach you: Name: Debi Toscano Phone 1: [phone] Phone 2: EMAIL: [email or web address] Address: [address] [place] [address]: [facility]: [place] Zip Code: [address] II. DEPLOYMENT INFORMATION (DEP) 1. [ 0 [...] easily startled? 6. d. [ No ] Holly numb or detached from others, activities, or your surroundings? 6. e. [ Not answered ] Holly guilt or unable to stop blaming yourself [...] like to schedule a visit with a turret press operator, mental health care provider, or a community [...] [ cyclobenzaprine, meloxicam ] What prescriptions or xhny-yjh-ntydhrm medications are you CURRENTLY taking for health [...] had a cholesterol check by a health animal caregiver within the PAST 5 YEARS? 13.a. In [...] [place] Where: [facility] 5. Member acknowledged responsibility for reporting health issues. 7. [ No ] Woud you like to schedule an appointment with a health care provider to discuss any health concerns? XI. SE[facility] AND [facility] 1. [ Yes ] Are you planning to separate or retire within the next year from Active Duty or [place] Duty (activated for greater than 30 continuous days) OR do you intend to file a claim for disability compensation with the [employer] Benefits Administration? ---- PART B. RECORD REVIEW AND RECOMMENDATIONS I. RECORD REVIEWER INFORMATION 1. Last Name: SHON 2. First Name: RAVINDER 3. Middle Name: 4. 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 EMAIL: [email or web address] 8. Facility: [facility] 9. Unit: [facility] 10. Address: [address] [place] [address] 11. State: [place] 12. Zip Code: [address] 13. Phone: [phone] 14. Date Record Review: II. MEDICAL SCREENING 1. [ ] Date of member of technical staff's most recent PHA 2. [ 5 feet 9 inches Date: ] member of technical staff's most recently documented height 3. [ 192 pounds Date: ] member of technical staff's most recently documented weight 4. [ 115/68 Date: ] member of technical staff's most recently documented blood pressure reading 5. [ No ] Does the member of technical staff have a history of abnormal blood pressure since their last PHA? 6. [ Yes ] Does the member of technical staff have a laboratory test of sickle cell trait documented in their permanent medical record? 7. [ ] What is the date of the member of technical staff's most recently documented cholesterol test? 9. [ Meloxicam 15mg ] List of member of technical staff's active medications listed in their permanent medical record 10. [ Yes: Cyclobenzaprine 10mg ] Is there a discrepancy between the active medication record review and the member of technical staff's self-reported list of medications? 11. [ No Outside Care Documented ] List documented significant care the member of technical staff has received since their last PHA from a provider OUTSIDE the Health System 12. [ No ] Is there a discrepancy between the member of technical staff's list of OUTSIDE care (from OT5), and the OUTSIDE care found in the record? 13. [ No Inside Care Documented ] List documented significant care the member of technical staff has received since their last PHA from a provider INSIDE the Health System 15. [ Not Answered ] Confirm that vaccine exemptions are listed in the medical record for each vaccine listed III. OCCUPATION-SPECIFIC EXAMINATIONS 2. [ ] When was the member of technical staff's most recently documented evaluation? IV. FAMILY HISTORY AND LIFESTYLE 1. [ Yes ] Does the [id number] reflect the member of technical staff's reported family history? VII. INDIVIDUAL MEDICAL READINESS 1. [ No ] Does the member of technical staff have an Assignment Limitation Code C? 3. [ Classification: 2 ] Most recently documented dental exam 4. [ No: Influenza, [place] ] Is the member of technical staff current on all required immunizations in the immunization tracking system? 5. [ Yes ] Is the member of technical staff current with Service-specific requirements for glasses and gas mask inserts? 6. Does the member of technical staff have the following laboratory tests documented in [...] need to be forwarded to the Health Provider Relations Rep completing PART C: Member reports periods of [...] ASSESSMENT (MHA) PROVIDER INFORMATION 1. Last Name: ANGEL 2. First Name: CORWIN 3. Middle Name: 4. Service Branch: [employer] 5. 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 EMAIL: [email or web address] 8. Facility: [facility] 9. Unit: [facility]PACE [facility]ICINE 10. Address: [address] [place] [address] 11. State: [place] 12. Zip Code: [address] 13. Phone: [phone] 14. Date HCP Review initiated: 1. Member [...] 4. (nothing required) 4. Member did not shayna yes on two or more of questions 6a through 6e. 5. Member did not shayna More than half the days or nearly [...] ASSESSMENT (PHA) PROVIDER INFORMATION 1. Last Name: ANGEL 2. First Name: CORWIN 3. Middle Name: 4. 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 EMAIL: [email or web address] 8. Facility: 9 [facility]IC[facility] SQ 9. Unit: 9 [facility] SQ 10. Address: [address] [place] [address] 11. State: [place] 12. Zip Code: [address] 13. Phone: [phone] 14. Date HCP Review initiated: IV. PERIODIC HEALTH ASSESSMENT PROVIDER RECOMMENDATIONS and REFERRALS 1. Provider concerns with this assessment: No issues or concerns identified V. SUMMARY AND COMMENTS 1. Additional information summarizing findings during the member of technical staff assessment: 2. Provider Comments: Member is retiring next month. No major concerns. Reports occasional lightheadedness when standing up too fast. No other concerns. . INDIVIDUAL MEDICAL READINESS DISPOSITION DETERMINATION GABINO: Ready DEN: Ready IMM: Ready LAB: Ready ME: Ready IMR Status: Fully Medically Ready VII. SERVICE MEDICAL DEPLOYABILITY EVALUATION INDICATED Based on your review of all documentation, is the member of technical staff medically deployable without limitations? Reference [facility] 6490.07 Yes (member of technical staff DOES NOT currently have a medical condition that limits deployability) Date PHA Completed: END OF [id number] REPORT Impression:Meets?medical standards per DAFMAN 48-123/MSD. Disposition:?No AF469 changes based on this encounter.[employer]. 02/07/[address] [place] [address] Assessment and Plan Extracted from:Title : Office Clinic Note Author: ONOFRE VILLA Date: 09/20/24 Encounter for examination and observation for other specified reasons Hearing threshold stable. Patient's left ear reference audiogram was re-established after follow-up program. A copy of hearing test was given to patient and uploaded into [employer]. Onofre Villa, Rig Hand Senior Research Manager [facility], [place], [place] ? ? Extracted from:Title: PHA / [...] Problems: ?n/a 507: _ Comments: Addendum by CORWIN ORTIZ MD on September 10, 2024 11:09 EDT Chief Complaint: Member here for annual PHA.?No acute complaints.?IMR?green. HEENT:?Normal Joints:?Normal Lungs:?Normal Heart:?Normal Comments: ANNUAL PERIODIC HEALTH ASSESSMENT I. BONDING AGENT INFORMATION AND DEMOGRAPHICS (SMI) 1. Last Name: THERESA 2. First Name: DOMINIQUE 3. Middle Name: CLAUDIA 4. Assessment Date: 5. : 6. Age: 39 7. Gender: M 8. DoD ID Number: [id number] 9. Service Branch: [employer] 10. 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 Duty Station/Location: [place] 15. [facility]: [id number] 16. Is this your first Periodic Health Assessment (PHA)?: N 17. Are you enrolled in a secure messaging system with your health care provider?: Y 18. Current contact information: Preferred Method: Day Time Phone DSN: Day Time Phone: [phone] Night Time Phone: [phone] Email 1: [email or web address] Email 2: Address: [address] [place] [address]: [facility]: [place] Zip Code: [address] 19. Point of contact who can always reach you: Name: Debi Toscano Phone 1: [phone] Phone 2: EMAIL: [email or web address] Address: [address] [place] [address]: [facility]: [place] Zip Code: [address] II. DEPLOYMENT INFORMATION (DEP) 1. [ 0 [...] easily startled? 6. d. [ No ] Holly numb or detached from others, activities, or your surroundings? 6. e. [ Not answered ] Holly guilt or unable to stop blaming yourself [...] like to schedule a visit with a turret press operator, mental health care provider, or a community [...] [ cyclobenzaprine, meloxicam ] What prescriptions or fcea-uap-bilyljk medications are you CURRENTLY taking for health [...] had a cholesterol check by a health animal caregiver within the PAST 5 YEARS? 13.a. In [...] [place] Where: [facility] 5. Member acknowledged responsibility for reporting health issues. 7. [ No ] Woud you like to schedule an appointment with a health care provider to discuss any health concerns? XI. SE[facility] AND [facility] 1. [ Yes ] Are you planning to separate or retire within the next year from Active Duty or [place] Duty (activated for greater than 30 continuous days) OR do you intend to file a claim for disability compensation with the [employer] Benefits Administration? ---- PART B. RECORD REVIEW AND RECOMMENDATIONS I. RECORD REVIEWER INFORMATION 1. Last Name: SHON 2. First Name: RAVINDER 3. Middle Name: 4. 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 EMAIL: [email or web address] 8. Facility: [facility] 9. Unit: [facility] 10. Address: [address] [place] [address] 11. State: [place] 12. Zip Code: [address] 13. Phone: [phone] 14. Date Record Review: II. MEDICAL SCREENING 1. [ ] Date of member of technical staff's most recent PHA 2. [ 5 feet 9 inches Date: ] member of technical staff's most recently documented height 3. [ 192 pounds Date: ] member of technical staff's most recently documented weight 4. [ 115/68 Date: ] member of technical staff's most recently documented blood pressure reading 5. [ No ] Does the member of technical staff have a history of abnormal blood pressure since their last PHA? 6. [ Yes ] Does the member of technical staff have a laboratory test of sickle cell trait documented in their permanent medical record? 7. [ ] What is the date of the member of technical staff's most recently documented cholesterol test? 9. [ Meloxicam 15mg ] List of member of technical staff's active medications listed in their permanent medical record 10. [ Yes: Cyclobenzaprine 10mg ] Is there a discrepancy between the active medication record review and the member of technical staff's self-reported list of medications? 11. [ No Outside Care Documented ] List documented significant care the member of technical staff has received since their last PHA from a provider OUTSIDE the Health System 12. [ No ] Is there a discrepancy between the member of technical staff's list of OUTSIDE care (from OTH[facility]), and the OUTSIDE care found in the record? 13. [ No Inside Care Documented ] List documented significant care the member of technical staff has received since their last PHA from a provider INSIDE the Health System 15. [ Not Answered ] Confirm that vaccine exemptions are listed in the medical record for each vaccine listed III. OCCUPATION-SPECIFIC EXAMINATIONS 2. [ ] When was the member of technical staff's most recently documented evaluation? IV. FAMILY HISTORY AND LIFESTYLE 1. [ Yes ] Does the [id number] reflect the member of technical staff's reported family history? VII. INDIVIDUAL MEDICAL READINESS 1. [ No ] Does the member of technical staff have an Assignment Limitation Code C? 3. [ Classification: 2 ] Most recently documented dental exam 4. [ No: Influenza, [place] ] Is the member of technical staff current on all required immunizations in the immunization tracking system? 5. [ Yes ] Is the member of technical staff current with Service-specific requirements for glasses and gas mask inserts? 6. Does the member of technical staff have the following laboratory tests documented in [...] need to be forwarded to the Health Provider Relations Rep completing PART C: Member reports periods of dizziness, fainting, or loss of consciousness but did not seek medical care. Member reports life stressors related to employment and is currently in treatment/ getting professional help for this concern. Member is currently taking prescription or over the counter medications, cyclobenzaprine, meloxicam. Pain level: 6. No other significant findings. DANIELA reviewed. Date Record Review Completed: - PART C. HEALTH CARE PROVIDER I. MENTAL HEALTH ASSESSMENT (MHA) PROVIDER INFORMATION 1. Last Name: ANGEL 2. First Name: CORWIN 3. Middle Name: 4. 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 EMAIL: [email or web address] 8. Facility: [facility] 9. Unit: [facility] 10. Address: [address] [place] [address] [place] 11. State: [place] 12. Zip Code: [address] 13. Phone: [phone] 14. Date HCP Review initiated: 1. Member [...] 4. (nothing required) 4. Member did not shayna yes on two or more of questions 6a through 6e. 5. Member did not shayna More than half the days or nearly [...] ASSESSMENT (PHA) PROVIDER INFORMATION 1. Last Name: ANGEL 2. First Name: CORWIN 3. Middle Name: 4. Service Branch: [employer] 5. 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 EMAIL: [email or web address] 8. Facility: [facility] 9. Unit: [facility] 10. Address: [address] [place] [address] 11. State: [place] 12. Zip Code: [address] 13. Phone: [phone] 14. Date HCP Review initiated: IV. PERIODIC HEALTH ASSESSMENT PROVIDER RECOMMENDATIONS and REFERRALS 1. Provider concerns with this assessment: No issues or concerns identified V. SUMMARY AND COMMENTS 1. Additional information summarizing findings during the member of technical staff assessment: 2. Provider Comments: Member is retiring next month. No major concerns. Reports occasional lightheadedness when standing up too fast. No other concerns. . INDIVIDUAL MEDICAL READINESS DISPOSITION DETERMINATION GABINO: Ready DEN: Ready IMM: Ready LAB: Ready ME: Ready IMR Status: Fully Medically Ready VII. SERVICE MEDICAL DEPLOYABILITY EVALUATION INDICATED Based on your review of all documentation, is the member of technical staff medically deployable without limitations? Reference Dylan 6490.07 Yes (member of technical staff DOES NOT currently have a medical condition that limits deployability) Date PHA Completed: END OF [id number] REPORT Impression:Meets?medical standards per MINA 48-123/MSD. Disposition:?No AF469 changes based on this encounter.[employer]. 02/07/2025 [id number] AMDS Plan of Care List of future care activities from 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 Additional future care activities may be listed in the Assessment and Plan section. Date/Time Care Activity Care Activity Detail Facili ty 02/09/2025 AMBULATORY - MEDICINE AMBULATORY - [facility]IC[facility] Functional Status Combined list of recent functional and cognitive assessments recorded at [facility] of Defense and Veterans Affairs (VA).VA Functional [place] Measurement (FIM) Scale: 1 = Total Assistance (Subject = 0% +), 2 = Maximal Assistance (Subject = 25% +), 3 = Moderate Assistance (Subject = 50% +), 4 = Minimal Assistance (Subject = 75% +), 5 = Supervision, 6 = Modified [place] (Device), 7 = Complete [place] (Timely, Safely). Assessment Date/Time Source Assessment Type Assessment Skill Assessment Score Assessment Details No data available for this section
[2025-02-07 11:17] LABS: MANUAL DIFF FLAG NO
[2025-02-07 11:31] LABS: Appearance Urine Clear; Color Urine Yellow; Glucose Urine UA Negative (Negative); Leukocyte Esterase Urine Negative (Negative); Nitrite Urine Negative (Negative); PH 6.5 (5.0-9.0); Urine Blood Negative (Negative); Urine Ketones Trace mg/dL (Negative); Urine Protein Negative (Neg-Trace)
[2025-02-07 11:31] LABS: Basophils Absolute Auto 0.1 X10*3/uL (0.0-0.2); Basophils Percent Auto 1.9 % (0-2); Eosinophils Absolute Auto 0.1 X10*3/uL (0.0-0.4); Eosinophils Percent Auto 1.9 % (0-4); Hematocrit 40.2 % (42.0-52.0); Hemoglobin 13.6 g/dl (14.0-18.0); Imm Gran Abs Auto 0.01 X10*3/uL (0.00-0.03); Imm Gran Pct Auto 0.2 % (0.0-0.4); Lymphocytes Percent Auto 20.1 % (20-40); Mean Corpuscular HGB Conc 33.8 g/dl (31.0-36.0); Mean Corpuscular Hemoglobin 30.6 pg (27.0-33.0); Mean Corpuscular Volume 90.5 fL (80.0-98.0); Mean Platelet Volume 11.3 fL (9.4-12.4); Monocytes Absolute Auto 0.4 X10*3/uL (0.1-1.2); Monocytes Percent Auto 7.5 % (2-11); Neutrophils Absolute Auto 3.3 x10*3/uL (2.0-8.3); Neutrophils Percent Auto 68.4 % (45-73); Platelet Count 260 X10*3/uL (160-400); Red Blood Count 4.44 X10*6/uL (4.60-5.80); Red Cell Distribution Width 12.8 % (11.0-16.0); White Blood Count 4.8 X10*3/uL (4.8-10.8)
[2025-02-07 12:08] LABS: Alanine Aminotransferase 28 U/L (0-40); Albumin Level 4.4 g/dL (3.5-5.0); Alkaline Phosphatase 66 U/L (39-117); Anion Gap 8 (12-20); Aspartate Amino Transferase 25 U/L (5-37); Bilirubin Total 1.7 mg/dL (0.0-1.0); Blood Urea Nitrogen 11 mg/dL (9-16); Calcium 9.3 mg/dL (8.4-10.2); Carbon Dioxide 25 mmol/L (22-29); Chloride 111 mmol/L (96-108); Cholesterol 142 mg/dL (<200); Estimated Glomerular Filt Rate > 60; Glucose Fasting 92 mg/dL (60-99); HDL Cholesterol 53 mg/dL (>40); LDL Cholesterol Calculated 81 mg/dL (<100); Sodium 140 mmol/L (135-145); TSH reflex Free T4 1.85 uIU/mL (0.32-4.0); Total Protein 6.8 g/dL (6.5-8.0); Triglycerides 43 mg/dL (<150)
== END 2025-02-07 09:15 | disposition home or self-care (01) ==
LOC: HO.WFDLDS 09:14
PROVIDERS: Visit Provider Nurse Practitioner Family
DX: Z00.00 Encounter for general adult medical examination without abnormal findings (principal)
CPT/HCPCS: 36415; 80053; 80061; 81003; 84443; 85025

== ENCOUNTER 2025-02-28 07:59 | Outpatient (REF) | payer OTHER, SELFPAY ==
--- NOTE | ~2025-02-28 | US_ITS ---
CLINICAL HISTORY: R17 - Unspecified jaundice US abdomen complete Comparison: None Findings: Multiple gallbladder polyps noted, largest 3 mm. No stones, sludge or wall thickening. Common duct measures 3.3 mm. No sonographic Marino sign. Liver is homogeneous and normal in size and echogenicity. Main portal vein patent with normal direction of flow. Pancreas is unremarkable. Aorta and IVC patent and normal in caliber. The right kidney is normal, 12.5 cm in length. No focal abnormality or hydronephrosis. The left kidney is normal, 12.0 cm in length. No focal abnormality or hydronephrosis. The spleen is normal, 11.2 cm in length. No focal abnormality. Impression: Small gallbladder polyps, otherwise unremarkable This document has been electronically signed by: Luke Summers MD on 02/28/2025 20:24:54
--- OUTSIDE RECORDS SUMMARY | 2025-02-28 08:06 | XMS_ITS | Encounter Summary ---
Author Organization [facility] Address [address] [place] [address] Care Team Providers Care Framing Manager Name Role Phone Unavailable Primary Care Provider [...] Description 08/23/2025 12:00 PM EDT Office Visit [facility] D[facility] [address] [place] [address] Sayra Marino documented as of this encounter Visit Diagnoses Not on filedocumented in this encounter
--- OUTSIDE RECORDS SUMMARY | 2025-02-28 08:06 | XMS_ITS | Clinical Summary ---
Author Organization [employer] Address [address] [facility] [address] [place] [address] Care Team Providers Care Flight Attendant Inflight Services Name Role Phone Unavailable Primary Care Provider [...] Upcoming Encounters Date Type Department Care Team ([facility] Contact Info) Description 08/23/2025 12:00 PM EDT Office Visit [facility] DENTAL [address] [place] [address] Sayra Marino Health Maintenance Due Date Last [...] Relevant to Health Maintenance Insurance DENTAL - [facility] RODNEY Ramos [id number]
--- OUTSIDE RECORDS SUMMARY | 2025-02-28 08:06 | XMS_ITS | Continuity of Care Document ---
Author Name [facility] Organization [facility] Care Team Providers Care Miller Head Wet Process Name Role Phone [facility] Unavailable Unavailable Problems Combined list of problems from 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 It does not include entries that were removed or entered in error. Problem Status Onset Date Problem Type Date of Resolution Comments Source Encounter for examination and observation for other specified reasons Active Diagnosis [facility] [place] Episodic tension-type headache Active Condition Jan 07, 2024 Entered By: NICOLAS PENNINGTON Comment: Average Twice Week; No Red Flags ; No Aura; No Consistent Triggers;Jan 07, 2024 Entered By: NICOLAS PENNIGNTON Comment: APAP Relieves [place] Exposure to potentially hazardous substance Active Condition Jan 07, 2024 Entered By: NICOLAS PENNINGTON Comment: [place]; also Ionized Radiation [place] Low back pain Active Condition Dec Entered By: NICOLAS PENNINGTON Comment: Non-Radicular LBP; No Direct Trauma; Gradual Onset Over Time in [facility] Pain in right hip joint Active Condition Jan 07, 2024 Entered By: NICOLAS PENNINGTON Comment: No Acute Hip Injuries; PT Abates Pain; Onset Over the Years in [facility] Recurrent dislocation of shoulder region Active Condition Feb 10, 2024 Entered By: YARED DUMONT Comment: [facility] Rupture of anterior cruciate ligament Active Condition Jan 07, 2024 Entered By: NICOLAS PENNINGTON Comment: Complete Tear ACL, L Knee; Tear Demonstrated on MRI approx 2023 Entered By: NICOLAS PENNINGTON Comment: No Acute Tear of ACL; Gradual Onset Over Yrs in the [facility] Tinnitus Active Condition Dec Entered By: NICOLAS PENNINGTON Comment: 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[place] Under care of multiple providers Active Condition Feb 09 Entered By: YARED DUMONT Comment: community PCP Nicolas Ngo, [facility] GASTROENTERITIS Active Condition DoD nausea Inactive Condition DoD Outpatient Physician Consultation Active Condition DoD visit for: examination for sports competition Inactive Condition DoD OPEN WOUND Inactive Condition DoD JOINT INSTABILITY SHOULDER REGION Active Condition DoD Shoulder Instability Active Condition DoD SUBLUXATION SHOULDER JOINT ANTERIOR RIGHT Inactive Condition [facility] visit for: administrative purpose Inactive Condition [facility] Patient Education - Injury Prevention Active Condition DoD NONALLOPATHIC LESIONS UPPER EXTREMITIES Active Condition DoD joint pain, localized in the shoulder Active Condition DoD SHOULDER DISLOCATION RIGHT Inactive Condition DoD SHOULDER DISLOCATION Inactive Condition DoD joint pain, localized in the knee Inactive Condition DoD Other Physical Therapy Active Condition DoD joint pain, localized in the wrist Active Condition DoD CLOSED FRACTURE RADIUS/ULNA DISTAL END Active Condition DoD Nodules - Subcutaneous Active Condition DoD physical trauma while skiing Inactive Condition DoD CLOSED FRACTURE RADIUS/ULNA DISTAL END - RADIUS ONLY Inactive Condition [facility] visit for: occupational health / fitness exam Inactive Condition DoD NORMAL ROUTINE OPHTHALMOLOGICAL EXAM Inactive Condition DoD URETHRITIS CHLAMYDIA TRACHOMATIS Inactive Condition DoD pain during urination (dysuria) Inactive Condition [facility] ASSESSMENT OF PATIENT CONDITION WORK STATUS Inactive Condition [facility] visit for: [employer] services flight physical Active Condition DoD PROCTALGIA Active Condition will try meds for topical [...] verbalizes understanding and is agreeable with plan. [facility] Review Of Immunization History Inactive Condition [facility] Vaccines Prophylactic Need Against Smallpox Inactive Condition [facility] visit for: services physical Inactive Condition See SF 507 and SF 600 dated 24 May 2008.No medical concerns identified. Low risk for CHD. Pt counseled on safe sex practices.No PDI. No PRP suspension. Member march. DoD UPPER RESPIRATORY INFECTION Inactive Condition DoD REFRACTIVE ERROR - MYOPIA Active Condition [facility] Diagnosis: ICD-10-CM M54.50 Low back pain, unspecified Active Diagnosis [place] Diagnosis: ICD-10-CM M24.419 Recurrent dislocation, unspecified shoulder Active Diagnosis [place] Diagnosis: ICD-10-CM M54.59 Other low back pain Active Diagnosis [facility] Diagnosis: ICD-10-CM M25.561 Pain in right knee Active Diagnosis [facility] Diagnosis: ICD-10-CM Z71.89 Other specified counseling Active Diagnosis [facility] Medications Combined list of outpatient medications from [...] [place], 1000 ea. BOTTLE Cancele d [id number] : 2023 0 Pharmac y Data Transac tion Service Facilit y HYDROCORTIS ONE (hydrocorti sone), 2.5 %, CRM/PE KAMILLA, TOPICAL, ANI PHARMACEUTI , 30 g TUBE Cancele d [id number] : 2023 0 Pharmac y Data Transac tion Service Facilit y Meloxicam (Meloxicam) , 15mg, Tablet, Oral, [place] Pharmac, 1000 Ea. Bottle Active [id number] 2023 14 Pharmac y Data Transac tion Service Facilit y Allergies, Adverse Reactions, Alerts Combined list of allergies from 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 It does not include entries that were removed or entered in error. Substance Category Reaction Severity Reaction type Status Date Reported Comments Source No Known Allergies Drug allergy (disorder) active 10/17/2013 [facility] Immunizations Combined list of available immunizations from the 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 Immunization Series Date Given Administered By Site Reaction Lot Number CVX Code Drug Systems Program Manager Status Comments Source INFLUENZA, UNSPECIFIED FORMULATION 2023 88 complet ed HISTORICA L INFORMATI ON - FROM PATIENT'S RECALL, [facility] SET[facility] INFLUENZA, UNSPECIFIED FORMULATION 2022 88 complet ed HISTORICA L INFORMATI ON - FROM PATIENT'S RECALL, [facility] SET[facility] influenza, injectable, quadrivalent- pf 2021 [id number] GlaxoSmithKli ne complet ed influenza , injectabl e, quadrival ent-pf 09/10/22 Given Ambulat ory Pharmac y tetanus, diphtheria, acellular pertu is 2020 [id number] 115 sanofi pasteur complet ed tetanus, diphtheri a, acellular pertussis 09/13/21 Given Ambulat ory Pharmac y TDAP 2020 115 complet ed HISTORICA L INFORMATI ON - FROM PATIENT'S WRITTEN RECORD, [facility] influenza, injectable, quadrivalent, preservative free 2020 NEYDA, () Not Given influenza , injectabl e, quadrival ent, preservat juan free [facility] COVID Vaccine Moderna 2020 [id number] complet ed COVID Vaccine Moderna 01/04/21 Given Ambulat ory Pharmac y COVID-19 (MODERNA), MRNA, LNP-S, PF, 100 MCG/0.5ML DOSE OR 50 MCG/0.25ML DOSE 2 2020 207 complet ed HISTORICA L INFORMATI ON - FROM PATIENT'S WRITTEN RECORD, [facility] COVID-19 (PFIZER), MRNA, LNP-S, PF, 30 MCG/0.3 ML DOSE 2 2020 208 complet ed HISTORICA L INFORMATI ON - FROM PATIENT'S WRITTEN RECORD, [facility] COVID Vaccine Moderna 2020 [id number] complet ed COVID Vaccine Moderna 12/04/20 Given Ambulat ory Pharmac y COVID-19 (MODERNA), MRNA, LNP-S, PF, 100 MCG/0.5ML DOSE OR 50 MCG/0.25ML DOSE 1 2020 207 complet ed HISTORICA L INFORMATI ON - FROM PATIENT'S WRITTEN RECORD, [facility] COVID-19 (PFIZER), MRNA, LNP-S, PF, 30 MCG/0.3 ML DOSE 1 2020 208 complet ed HISTORICA L INFORMATI ON - FROM PATIENT'S WRITTEN RECORD, [facility] influenza, injectable, quadrivalent, preservative free 2019 [id number], () Not Given influenza , injectabl e, quadrival ent, preservat juan free [facility] measles/mumps /rubella virus vaccine 2019 [id number] Merck [employer] Company Inc complet ed measles/m umps/rube lla virus vaccine 12/13/19 Given Ambulat ory Pharmac y meningococcal A,C,Y,W-135 (MCV4P) 2019 [id number] 114 sanofi pasteur complet ed meningoco ccal A,C,Y,W-1 35 (MCV4P) 12/13/19 Given Ambulat ory Pharmac y typhoid Vi capsular polysaccharid e vac 2019 [id number] 101 sanofi pasteur complet ed typhoid Vi capsular polysacch aride vac 12/13/19 Given Ambulat ory Pharmac y influenza, injectable, quadrivalent- pf 2018 [id number] 150 [employer] complet ed influenza , injectabl e, quadrival ent-pf 10/12/19 Given Ambulat ory Pharmac y influenza, seasonal, injectable 2017 [id number] 141 [employer] complet ed influenza , seasonal, injectabl e 09/01/18 Given Ambulat ory Pharmac y influenza, injectable, quadrivalent- pf 2017 150 [employer] complet ed influenza , injectabl e, quadrival ent-pf 09/01/18 Given Ambulat ory Pharmac y Influenza, inj, MDCK, quadrivalent- pf 2016 [id number] 171 [employer] complet ed Influenza , inj, MDCK, quadrival ent-pf 10/26/17 Given Ambulat ory Pharmac y Influenza, injectable, Madin Elyse Canine Kidney, preservative free, quadrivalent 15 2016 [id number] 171 Se[employer]irus (SEQ) comple t ed Influenza , injectabl e, Madin Elyse Canine Kidney, preservat juan free, quadrival ent DoD influenza, seasonal, injectable 2015 [id number] 141 [employer] complet ed influenza , seasonal, injectabl e 08/12/16 Given Ambulat ory Pharmac y Influenza, seasonal, injectable 0 2015 [id number] 141 Se[employer]irus (SEQ) comple t ed Influenza , seasonal, injectabl e DoD influenza, live, intranasal,qu adrivalent 2014 [id number] 149 [employer] comple t ed influenza , live, intranasa l,quadriv alent 08/31/15 Given Ambulat ory Pharmac y influenza, live, intranasal, quadrivalent 13 2014 [id number] 149 [employer]plane[employer] Inc. (MED) complet ed influenza , live, intranasa l, quadrival ent DoD rabies vaccine, IM 2014 [id number] 175 Novartis Pharmaceutica ls complet ed rabies vaccine, IM 03/22/15 Given Ambulat ory Pharmac y rabies vaccine, for intramuscular injection RETIRED CODE 3 2014 [id number] 18 Novartis Pharmaceutica l Hazel. (NOV) complet ed rabies vaccine, for intramusc ular injection RETIRED CODE DoD [place] Encephalitis IM 2014 [id number] 134 Valneva complet ed [place] Encephali tis IM 01/05/15 Given Ambulat ory Pharmac y [place] Encephalitis vaccine for intramuscular administratio n 3 2014 [id number] 134 [employer]WD Technologies (INT) complet ed [place] Encephali tis vaccine for intramusc ular administr ation DoD influenza, live, intranasal,qu adrivalent 2013 [id number] 149 [employer] comple t ed influenza , live, intranasa l,quadriv alent 08/24/14 Given Ambulat ory Pharmac y influenza, live, intranasal, quadrivalent 1 2013 [id number] 149 [employer]. (MED) complet ed influenza , live, intranasa l, quadrival ent DoD [place] Encephalitis IM 2012 [id number] 134 Valneva complet ed [place] Encephali tis IM 08/11/13 Given Ambulat ory Pharmac y [place] Encephalitis vaccine for intramuscular administratio n 1 2012 [id number] 134 [employer] (INT) complet ed [place] Encephali tis vaccine for intramusc ular administr ation DoD influenza, live, intranasal,qu adrivalent 2012 [id number] 149 [employer]This Inc comple t ed influenza , live, intranasa l,quadriv alent 08/09/13 Given Ambulat ory Pharmac y influenza, live, intranasal, quadrivalent 11 2012 [id number] 149 [employer]. (MED) complet ed influenza , live, intranasa l, quadrival ent DoD [place] Encephalitis IM 2012 [id number] 6E 134 Valneva complet ed [place] Encephali tis IM 04/28/13 Given Ambulat ory Pharmac y [place] Encephalitis vaccine for intramuscular administratio n 0 2012 [id number] 6E 134 [employer] (INT) complet ed [place] Encephali tis vaccine for intramusc ular administr ation DoD rabies vaccine, IM 2012 [id number] 175 sanofi pasteur complet ed rabies vaccine, IM 04/21/13 Given Ambulat ory Pharmac y rabies vaccine, for intramuscular injection RETIRED CODE 2 2012 [id number] 18 Sanofi Pasteur (PMC) complet ed rabies vaccine, for intramusc ular injection RETIRED CODE DoD typhoid Vi capsular polysaccharid e vac 2012 [id number] 101 sanofi pasteur complet ed typhoid Vi capsular polysacch aride vac 03/16/13 Given Ambulat ory Pharmac y rabies vaccine, IM 2012 [id number] 175 Novartis Pharmaceutica ls complet ed rabies vaccine, IM 03/16/13 Given Ambulat ory Pharmac y meningococcal A,C,Y,W-135 (MCV4P) 2012 [id number] 114 sanofi pasteur complet ed meningoco ccal A,C,Y,W-1 35 (MCV4P) 03/16/13 Given Ambulat ory Pharmac y rabies vaccine, for intramuscular injection RETIRED CODE 0 2012 [id number] 18 Novartis Pharmaceutica l Hazel. (NOV) complet ed rabies vaccine, for intramusc ular injection RETIRED CODE DoD typhoid Vi capsular polysaccharid e vaccine 4 2012 [id number] 101 Sanofi Pasteur (PMC) complet ed typhoid Vi capsular polysacch aride vaccine DoD meningococcal polysaccharid e (groups A, C, Y and W-135) diphtheria toxoid conjugate vaccine (MCV4P) 2 2012 [id number] 114 Sanofi Pasteur (PMC) complet ed meningoco ccal polysacch aride (groups A, C, Y and W-135) diphtheri a toxoid conjugate vaccine (MCV4P) DoD influenza virus vaccine, live 2011 [id number] 111 [employer] comple t ed influenza virus vaccine, live 09/22/12 Given Ambulat ory Pharmac y influenza virus vaccine, live, attenuated, for intranasal use 10 2011 [id number] 111 [employer] Inc. (MED) complet ed influenza virus vaccine, live, attenuate d, for intranasa l use [facility] tuberculin purified protein derivative 2010 [id number] 96 sanofi pasteur complet ed tuberculi n purified protein derivativ e 08/19/11 Given Ambulat ory Pharmac y tetanus, diphtheria, acellular pertu is 2010 [id number] 115 sanofi pasteur complet ed tetanus, diphtheri a, acellular pertussis 08/19/11 Given Ambulat ory Pharmac y typhoid Vi capsular polysaccharid e vac 2010 [id number] 101 sanofi pasteur complet ed typhoid Vi capsular polysacch aride vac 08/19/11 Given Ambulat ory Pharmac y anthrax vaccine 2010 [id number] 24 Emergent [employer] complet ed anthrax vaccine 08/19/11 Given Ambulat ory Pharmac y TDAP 2010 115 complet ed HISTORICA L INFORMATI ON - FROM PATIENT'S WRITTEN RECORD, [facility] anthrax vaccine 6 2010 [id number] 24 [employer] ([facility]) complet ed anthrax vaccine DoD typhoid Vi capsular polysaccharid e vaccine 3 2010 [id number] 101 Sanofi Pasteur (PMC) complet ed typhoid Vi capsular polysacch aride vaccine DoD tetanus toxoid, reduced diphtheria toxoid, and acellular pertu is vaccine, adsorbed 0 2010 [id number] 115 Sanofi Pasteur (PMC) complet ed tetanus toxoid, reduced diphtheri a toxoid, and acellular pertussis vaccine, adsorbed DoD influenza virus vaccine, live 2010 [id number] 111 [employer] comple t ed influenza virus vaccine, live 07/24/11 Given Ambulat ory Pharmac y influenza virus vaccine, live, attenuated, for intranasal use 1 2010 [id number] 111 [employer] Inc. (MED) complet ed influenza virus vaccine, live, attenuate d, for intranasa l use DoD anthrax vaccine 2009 [id number] 24 [employer] complet ed anthrax vaccine 07/30/10 Given Ambulat ory Pharmac y anthrax vaccine 5 2009 [id number] 24 [employer] ([facility]) complet ed anthrax vaccine DoD influenza virus vaccine, live 2009 111 complet ed influenza virus vaccine, live 07/12/10 Given Ambulat ory Pharmac y influenza virus vaccine, live, attenuated, for intranasal use 2 2009 111 Transcribed (TRS) complet ed influenza virus vaccine, live, attenuate d, for intranasa l use DoD anthrax vaccine 2009 [id number] [employer] complet ed anthrax vaccine 01/21/10 Given Ambulat ory Pharmac y anthrax vaccine 4 2009 [id number] 24 [employer] ([facility]) complet ed anthrax vaccine DoD Novel influenza-H1N 1-09,pf,injec table 2008 [id number] 126 Novartis Pharmaceutica ls complet ed Novel influenza -G4X8-35, pf,inject able 09/25/09 Given Ambulat ory Pharmac y influenza virus vaccine,split 2008 [id number] 15 sanofi pasteur complet ed influenza virus vaccine,s plit 09/25/09 Given Ambulat ory Pharmac y influenza virus vaccine, split virus (incl. purified surface antigen)-reti red CODE 1 2008 [id number] 15 Sanofi Pasteur (PMC) complet ed influenza virus vaccine, split virus (incl. purified surface antigen)- retired CODE DoD Novel influenza-H1N 1-09, preservative- free, injectable 1 2008 [id number] 126 Novartis [employer] software[employer] Hazel. (NOV) complet ed Novel influenza -R9I7-10, preservat juan-free, injectabl e DoD anthrax vaccine 2008 [id number] 24 [employer] complet ed anthrax vaccine 07/11/09 Given Ambulat ory Pharmac y anthrax vaccine 3 2008 [id number] 24 [employer] ([facility]) complet ed anthrax vaccine DoD typhoid Vi capsular polysaccharid e vac 2008 [id number] 101 sanofi pasteur complet ed typhoid Vi capsular polysacch aride vac 11/15/08 Given Ambulat ory Pharmac y typhoid Vi capsular polysaccharid e vaccine 1 2008 [id number] 101 Sanofi Pasteur (PMC) complet ed typhoid Vi capsular polysacch aride vaccine DoD influenza virus vaccine, live 2007 [id number] 111 [employer] comple t ed influenza virus vaccine, live 09/06/08 Given Ambulat ory Pharmac y influenza virus vaccine, live, attenuated, for intranasal use 1 2007 [id number] 111 [employer], Inc. ([facility]) complet ed influenza virus vaccine, live, attenuate d, for intranasa l use DoD yellow fever vaccine 2007 [id number] 37 sanofi pasteur complet ed yellow fever vaccine 12/09/07 Given Ambulat ory Pharmac y yellow fever vaccine 1 2007 [id number] 37 Sanofi Pasteur ([facility]) complet ed yellow fever vaccine DoD influenza virus vaccine, live 2006 [id number] 111 [employer] comple t ed influenza virus vaccine, live 10/04/07 Given Ambulat ory Pharmac y influenza virus vaccine, live, attenuated, for intranasal use 1 2006 [id number] 111 [employer]. (MED) complet ed influenza virus vaccine, live, attenuate d, for intranasa l use DoD anthrax vaccine 2006 [id number] 24 [employer] complet ed anthrax vaccine 02/16/07 Given Ambulat ory Pharmac y anthrax vaccine 3 2006 [id number] 24 [employer] ([facility]) complet ed anthrax vaccine DoD anthrax vaccine 2006 [id number] 24 [employer] complet ed anthrax vaccine 01/18/07 Given Ambulat ory Pharmac y anthrax vaccine 2 2006 [id number] 24 [employer] ([facility]) complet ed anthrax vaccine DoD influenza virus vaccine,split 2005 [id number] 15 sanofi pasteur complet ed influenza virus vaccine,s plit 10/28/06 Given Ambulat ory Pharmac y influenza virus vaccine, split virus (incl. purified surface antigen)-reti red CODE 1 2005 [id number] 15 Sanofi Pasteur ([facility]) complet ed influenza virus vaccine, split virus (incl. purified surface antigen)- retired CODE DoD typhoid vaccine, parenteral 2005 [id number] 41 sanofi pasteur complet ed typhoid vaccine, parentera l 09/10/06 Given Ambulat ory Pharmac y anthrax vaccine 2005 [id number] [employer] complet ed anthrax vaccine 09/10/06 Given Ambulat ory Pharmac y vaccinia (smallpox) vaccine, diluted 2005 [id number] 105 [employer] complet ed vaccinia (smallpox ) vaccine, diluted 09/10/06 Given Ambulat ory Pharmac y anthrax vaccine 1 2005 [id number] 24 [employer] ([facility]) complet ed anthrax vaccine DoD typhoid vaccine, parenteral, other than acetone-kille d, dried 1 2005 [id number] 41 Sanofi Pasteur ([facility]) complet ed typhoid vaccine, parentera l, other than acetone-k illed, dried DoD vaccinia (smallpox) vaccine, diluted 1 2005 [id number] 105 Scot (WAL) complet ed vaccinia (smallpox ) vaccine, diluted DoD influenza virus vaccine,split 2004 [id number] 15 sanofi pasteur complet ed influenza virus vaccine,s plit 10/10/05 Given Ambulat ory Pharmac y influenza virus vaccine, split virus (incl. purified surface antigen)-reti red CODE 1 2004 [id number] 15 Sanofi Pasteur ([facility]) complet ed influenza virus vaccine, split virus (incl. purified surface antigen)- retired CODE DoD hepatitis A-hepatitis B vaccine 2004 [id number] 104 GlaxoSmithKli ne complet ed hepatitis A-hepatit is B vaccine 02/13/05 Given Ambulat ory Pharmac y influenza virus vaccine, whole virus 2004 [id number] 16 sanofi pasteur complet ed influenza virus vaccine, whole virus 02/13/05 Given Ambulat ory Pharmac y HEP A-HEP B 2004 104 complet ed HISTORICA L INFORMATI ON - FROM PATIENT'S WRITTEN RECORD, [facility]S [facility] influenza virus vaccine, whole virus 1 2004 [id number] 16 Sanofi Pasteur ([facility]) complet ed influenza virus vaccine, whole virus DoD hepatitis A and hepatitis B vaccine 3 2004 [id number] 104 Smithine (SKB) complet ed hepatitis A and hepatitis B vaccine DoD hepatitis A-hepatitis B vaccine 2003 [id number] 104 GlaxoSmithKli ne complet ed hepatitis A-hepatit is B vaccine 02/17/04 Given Ambulat ory Pharmac y HEP A-HEP B 2003 104 complet ed HISTORICA L INFORMATI ON - FROM PATIENT'S WRITTEN RECORD, [facility] hepatitis A and hepatitis B vaccine 2 2003 [id number] 6 104 [facility] (SKB) complet ed hepatitis A and hepatitis B vaccine DoD hepatitis A-hepatitis B vaccine 2003 [id number] 104 [employer] complet ed hepatitis A-hepatit is B vaccine 01/17/04 Given Ambulat ory Pharmac y HEP A-HEP B 2003 104 complet ed HISTORICA L INFORMATI ON - FROM PATIENT'S WRITTEN RECORD, [facility] [facility] VARICELLA 2003 21 complet ed HISTORICA L INFORMATI ON - FROM PATIENT'S WRITTEN RECORD, [facility] measles, mumps and rubella virus vaccine 0 2003 03 () Not Given measles, mumps and rubella virus vaccine DoD varicella virus vaccine 1 2003 21 () Not Given varicella virus vaccine DoD hepatitis A and hepatitis B vaccine 1 2003 [id number] 104 Bandarpr[employer] (SKB) complet ed hepatitis A and hepatitis B vaccine DoD tuberculin purified protein derivative 2003 [id number] 96 sanofi pasteur complet ed tuberculi n purified protein derivativ e 01/09/04 Given Ambulat ory Pharmac y tetanus-dipht h toxoids (Td) adult/adol 2003 [id number] 09 sanofi pasteur complet ed tetanus-d iphth toxoids (Td) adult/ado l 01/09/04 Given Ambulat ory Pharmac y poliovirus vaccine, inactivated 2003 [id number] 10 sanofi pasteur complet ed polioviru s vaccine, inactivat ed 01/09/04 Given Ambulat ory Pharmac y influenza virus vaccine, whole virus 2003 [id number] 16 Novartis Pharmaceutica complet ed influenza virus vaccine, whole virus 01/09/04 Given Ambulat ory Pharmac y meningococcal polysaccharid e (MPSV4) 2003 [id number] 32 sanofi pasteur complet ed meningoco ccal polysacch aride (MPSV4) 01/09/04 Given Ambulat ory Pharmac y TDAP 2003 115 complet ed HISTORICA L INFORMATI ON - FROM PATIENT'S WRITTEN RECORD, [facility] tetanus and diphtheria toxoids, adsorbed, preservative free, for adult use (2 Lf of tetanus toxoid and 2 Lf of diphtheria toxoid) 0 2003 [id number] 09 Sanofi Pasteur ([facility]) complet ed tetanus and diphtheri a toxoids, adsorbed, preservat juan free, for adult use (2 Lf of tetanus toxoid and 2 Lf of diphtheri a toxoid) [facility] poliovirus vaccine, inactivated 0 2003 [id number] 10 Sanofi Pasteur ([facility]) complet ed polioviru s vaccine, inactivat ed DoD influenza virus vaccine, whole virus 0 2003 [id number] 16 [employer] Pharm[employer] ls (PWJ) complet ed influenza virus vaccine, whole virus DoD meningococcal polysaccharid e vaccine (MPSV4) 0 2003 [id number] Sanofi Pasteur ([facility]) complet ed meningoco ccal polysacch aride vaccine (MPSV4) DoD Results Combined list of recent chemistry, hematology and other laboratory results from Department of Defense and Veterans Affairs, ranging from 15 months to all on record, depending upon the facility. Order Name Results Value Reference Range Date Interpretation Specimen Comments Source CBC AND DIFF (AUTO) LEUKOCYTES [#/VOLUME] IN BLOOD BY AUTOMATED COUNT 5.01 10*3/uL 4.50 - 11.00 02/07 Specimen Type: BLOOD No comment entered. Ordering Provider: SHADIA DUMONT Report Released Date/Time: Jan 31, 2025 08:42 AM Reporting Lab: [address] [address] Performing Lab: [facility] [address] [facility] [address] [facility] CBC AND DIFF (AUTO) ERYTHROCYT ES [#/VOLUME] IN BLOOD BY AUTOMATED COUNT 4.41 10*6/uL 4.23 - 5.66 02/07 Specimen Type: BLOOD No comment entered. Ordering Provider: SHADIA DUMONT Report Released Date/Time: Jan 31, 2025 08:42 AM Reporting Lab: [address] [address] Performing Lab: [address] [address] [facility] [place] [facility] CBC AND DIFF (AUTO) HEMOGLOBIN [MASS/VOLU ME] IN BLOOD 13.5 g/dL 12.8 - 17 02/07 Specimen Type: BLOOD No comment entered. Ordering Provider: SHADIA DUMONT Report Released Date/Time: Jan 31, 2025 08:42 AM Reporting Lab: [facility] [place] [facility] [address] [facility] [address] Performing Lab: [facility] [place] [facility] [address] [facility] [address] [facility] [place] [facility] CBC AND DIFF (AUTO) HEMATOCRIT [VOLUME FRACTION] OF BLOOD BY AUTOMATED COUNT 39.6 39.2 - 50.4 02/07 Specimen Type: BLOOD No comment entered. Ordering Provider: SHADIA DUMONT Report Released Date/Time: Jan 31, 2025 08:42 AM Reporting Lab: [facility] [place] [facility] [address] [facility] [address] Performing Lab: [facility] [place] [facility] [address] [facility] [address] [facility] [place] [facility] CBC AND DIFF (AUTO) MCV [ENTITIC VOLUME] BY AUTOMATED COUNT 89.8 fL 82 - 99 02/07 Specimen Type: BLOOD No comment entered. Ordering Provider: SHADIA DUMONT Report Released Date/Time: Jan 31, 2025 08:42 AM Reporting Lab: [facility] [place] [facility] [address] [facility] [address] Performing Lab: [facility] [place] [facility] [address] [facility] [address] [facility] [place] [facility] CBC AND DIFF (AUTO) MCHC [MASS/VOLU ME] BY AUTOMATED COUNT 34.1 g/dL 30.8 - 35.1 02/07 Specimen Type: BLOOD No comment entered. Ordering Provider: SHADIA DUMONT Report Released Date/Time: Jan 31, 2025 08:42 AM Reporting Lab: [facility] [place] [facility] [address] [facility] [address] Performing Lab: [facility] [place] [facility] [address] [facility] [address] [facility] [place] [facility] CBC AND DIFF (AUTO) PLATELETS [#/VOLUME] IN BLOOD BY AUTOMATED COUNT 256 10*3/uL 140 - 360 02/07 Specimen Type: BLOOD No comment entered. Ordering Provider: SHADIA DUMONT Report Released Date/Time: Jan 31, 2025 08:42 AM Reporting Lab: [facility] [place] [facility] [address] [facility] [address] Performing Lab: [facility] [place] [facility] [address] [facility] [address] [facility] [place] [facility] CBC AND DIFF (AUTO) PLATELET MEAN VOLUME [ENTITIC VOLUME] IN BLOOD BY AUTOMATED COUNT 11.2 fL 9.2 - 12.4 02/07 Specimen Type: BLOOD No comment entered. Ordering Provider: SHADIA DUMONT Report Released Date/Time: Jan 31, 2025 08:42 AM Reporting Lab: [facility] [place] [facility] [address] [facility] [address] Performing Lab: [facility] [place] [place] [facility] [address] [facility] [address] [facility] [place] [facility] CBC AND DIFF (AUTO) ERYTHROCYT E DISTRIBUTI ON WIDTH [RATIO] BY AUTOMATED COUNT 12.4 12.0 - 16.0 02/07 Specimen Type: BLOOD No comment entered. Ordering Provider: SHADIA DUMONT Report Released Date/Time: Jan 31, 2025 08:42 AM Reporting Lab: [facility] [place] [facility] [address] [facility] [address] Performing Lab: [facility] [place] [facility] [address] [facility] [address] [facility] [place] [facility] CBC AND DIFF (AUTO) MONOCYTES [#/VOLUME] IN BLOOD BY AUTOMATED COUNT 0.36 10*3/uL 0.30 - 1.10 02/07 Specimen Type: BLOOD No comment entered. Ordering Provider: SHADIA DUMONT Report Released Date/Time: Jan 31, 2025 08:42 AM Reporting Lab: [facility] [place] [facility] [address] [facility] [address] Performing Lab: [facility] [place] [facility] [address] [facility] [address] [facility] [place] CBC AND DIFF (AUTO) MCH [ENTITIC MASS] BY AUTOMATED COUNT 30.6 pg 26.2 - 32.6 02/07 Specimen Type: BLOOD No comment entered. Ordering Provider: SHADIA DUMONT Report Released Date/Time: Jan 31, 2025 08:42 AM Reporting Lab: [facility] [place] [facility] [address] [facility] [address] Performing Lab: [facility] [place] [facility] [address] [facility] [address] [facility] [place] CBC AND DIFF (AUTO) NEUTROPHIL S/100 LEUKOCYTES IN BLOOD BY AUTOMATED COUNT 71.8 43.7 - 75.8 02/07 Specimen Type: BLOOD No comment entered. Ordering Provider: SHADIA DUMONT Report Released Date/Time: Jan 31, 2025 08:42 AM Reporting Lab: [facility] [place] [facility] [address] [facility] [address] Performing Lab: [facility] [place] [facility] [address] [place] [address] [facility] [place] CBC AND DIFF (AUTO) LYMPHOCYTE S/100 LEUKOCYTES IN BLOOD BY AUTOMATED COUNT 18.0 14.0 - 42.3 02/07 Specimen Type: BLOOD No comment entered. Ordering Provider: SHADIA DUMONT Report Released Date/Time: Jan 31, 2025 08:42 AM Reporting Lab: [facility] [place] [facility] [address] [facility] [address] Performing Lab: [facility] [place] [facility] [address] [place] [address] [facility] [place] CBC AND DIFF (AUTO) MONOCYTES/ 100 LEUKOCYTES IN BLOOD BY AUTOMATED COUNT 7.2 5.1 - 13.7 04/01 /2025 Specimen Type: BLOOD No comment entered. Ordering Provider: SHADIA DUMONT Report Released Date/Time: Jan 31, 2025 08:42 AM Reporting Lab: [facility] [place] [facility] [address] [facility] [address] Performing Lab: [facility] [place] [facility] [address] [facility] [address] [facility] [place] CBC AND DIFF (AUTO) EOSINOPHIL S/100 LEUKOCYTES IN BLOOD BY AUTOMATED COUNT 1.4 0.4 - 6.8 02/07 Specimen Type: BLOOD No comment entered. Ordering Provider: SHADIA DUMONT Report Released Date/Time: Jan 31, 2025 08:42 AM Reporting Lab: [facility] [place] [address] [address] Performing Lab: [facility] [place] [address] [address] [facility] [place] [facility] CBC AND DIFF (AUTO) BASOPHILS/ 100 LEUKOCYTES IN BLOOD BY AUTOMATED COUNT 1.4 0.1 - 2.0 02/07 Specimen Type: BLOOD No comment entered. Ordering Provider: SHADIA DUMONT Report Released Date/Time: Jan 31, 2025 08:42 AM Reporting Lab: [facility] [place] [address] [address] Performing Lab: [facility] [place] [address] [address] [facility] [place] [facility] CBC AND DIFF (AUTO) NEUTROPHIL S [#/VOLUME] IN BLOOD BY AUTOMATED COUNT 3.60 10*3/uL 2.20 - 7.60 02/07 Specimen Type: BLOOD No comment entered. Ordering Provider: SHADIA DUMONT Report Released Date/Time: Jan 31, 2025 08:42 AM Reporting Lab: [facility] [place] [address] [address] Performing Lab: [facility] [place] [facility] [address] [place] [address] [facility] [place] CBC AND DIFF (AUTO) LYMPHOCYTE S [#/VOLUME] IN BLOOD BY AUTOMATED COUNT 0.90 10*3/uL 1.00 - 3.20 02/07 L Specimen Type: BLOOD No comment entered. Ordering Provider: SHADIA DUMONT Report Released Date/Time: Jan 31, 2025 08:42 AM Reporting Lab: [facility] [place] [facility] [address] [facility] [address] Performing Lab: [facility] [place] [facility] [address] [facility] [address] [facility] [place] CBC AND DIFF (AUTO) EOSINOPHIL S [#/VOLUME] IN BLOOD BY AUTOMATED COUNT 0.07 10*3/uL 0.03 - 0.44 02/07 Specimen Type: BLOOD No comment entered. Ordering Provider: SHADIA DUMONT Report Released Date/Time: Jan 31, 2025 08:42 AM Reporting Lab: [facility] [place] [facility] [address] [facility] [address] Performing Lab: [facility] [place] [facility] [address] [facility] [address] [facility] [place] [facility] CBC AND DIFF (AUTO) BASOPHILS [#/VOLUME] IN BLOOD BY AUTOMATED COUNT 0.07 10*3/uL 0.01 - 0.13 02/07 Specimen Type: BLOOD No comment entered. Ordering Provider: SHADIA DUMONT Report Released Date/Time: Jan 31, 2025 08:42 AM Reporting Lab: [facility] [place] [facility] [address] [facility] [address] Performing Lab: [facility] [place] [facility] [address] [facility] [address] [facility] [place] CBC AND DIFF (AUTO) IMMATURE GRANULOCYT ES/100 LEUKOCYTES IN BLOOD BY AUTOMATED COUNT 0.2 0.0 - 0.7 02/07 Specimen Type: BLOOD No comment entered. Ordering Provider: SHADIA DUMONT Report Released Date/Time: Jan 31, 2025 08:42 AM Reporting Lab: [facility] [place] [facility] [address] [facility] [address] Performing Lab: [facility] [place] [facility] [address] [facility] [address] [facility] [place] [facility] CBC AND DIFF (AUTO) IMMATURE GRANULOCYT ES [#/VOLUME] IN BLOOD BY AUTOMATED COUNT 0.01 10*3/uL 0.00 - 0.06 02/07 Specimen Type: BLOOD No comment entered. Ordering Provider: SHADIA DUMONT Report Released Date/Time: Jan 31, 2025 08:42 AM Reporting Lab: [facility] [place] [facility] [address] [facility] [address] Performing Lab: [facility] [address] [address] [facility] [place] [facility] CBC AND DIFF (AUTO) NUCLEATED ERYTHROCYT ES/100 LEUKOCYTES [RATIO] IN BLOOD BY AUTOMATED COUNT 0.0 0.0 - 0.0 02/07 Specimen Type: BLOOD No comment entered. Ordering Provider: SHADIA DUMONT Report Released Date/Time: Jan 31, 2025 08:42 AM Reporting Lab: [facility] [place] [place] [address] [address] Performing Lab: [facility] [place] [address] [address] [facility] [place] [facility] CBC AND DIFF (AUTO) NUCLEATED ERYTHROCYT ES [#/VOLUME] IN BLOOD BY AUTOMATED COUNT 0.00 10*3/uL 0.00 - 0.00 02/07 Specimen Type: BLOOD No comment entered. Ordering Provider: SHADIA DUMONT Report Released Date/Time: Jan 31, 2025 08:42 AM Reporting Lab: [facility] [place] [place] [address] [address] Performing Lab: [facility] [place] [address] [address] [facility] [place] [facility] HEMOGLOB IN A1C PANEL HEMOGLOBIN A1C/HEMOGL OBIN.TOTAL IN BLOOD BY IFCC PROTOCOL 5.0 4.0 - 5.6 02/07 Specimen Type: BLOOD Comment: Values obtained from A1C measurement s can vary. For atypical A1C assays, a reported value of 7.0 could actually be between 6.72 and 7.28 if measured by a reference method. A reported value of 9.0 could actually be between 8.73 and 9.27. Ref: http://www. ngsp.org/[place] Pdata.asp Ordering Provider: SHADIA DUMONT Report Released Date/Time: Jan 31, 2025 08:42 AM Reporting Lab: [facility] [place] [facility] [address] [facility] [address] Performing Lab: [facility] [place] [facility] [address] [place] [address] [facility] [place] [facility] TSH THYROTROPI N [UNITS/VOL UME] IN SERUM OR PLASMA BY DETECTION LIMIT <= 0.005 MIU/L 1.95 u[IU]/mL 0.35 - 5.00 02/07 Specimen Type: SERUM No comment entered. Ordering Provider: SHADIA DUMONT Report Released Date/Time: Jan 31, 2025 08:42 AM Reporting Lab: [facility] [place] [facility] [address] [place] [address] Performing Lab: [facility] [place] [facility] [address] [place] [address] [facility] [place] URINALYS IS COLOR OF URINE Light-Ye llow 02/07 Specimen Type: URINE Comment: If Glucose = >500 and Ketones are positive, please alert the Physician. Ordering Provider: SHADIA DUMONT Report Released Date/Time: Jan 31, 2025 08:42 AM Reporting Lab: [facility] [place] [facility] [address] [place] [address] Performing Lab: [facility] [place] [facility] [address] [place] [address] [facility] [place] [facility] URINALYS IS APPEARANCE OF URINE Clear 02/07 Specimen Type: URINE Comment: If Glucose = >500 and Ketones are positive, please alert the Physician. Ordering Provider: SHADIA DUMONT Report Released Date/Time: Jan 31, 2025 08:42 AM Reporting Lab: [facility] [place] [facility] [address] [facility] [address] Performing Lab: [facility] [place] [facility] [address] [facility] [address] [facility] [place] [facility] URINALYS IS GLUCOSE [MASS/VOLU ME] IN URINE Normalmg /dL 02/07 Specimen Type: URINE Comment: If Glucose = >500 and Ketones are positive, please alert the Physician. Ordering Provider: SHADIA DUMONT Report Released Date/Time: Jan 31, 2025 08:42 AM Reporting Lab: [facility] [place] [facility] [address] [facility] [address] Performing Lab: [facility] [place] [facility] [address] [facility] [address] [facility] [place] [facility] URINALYS IS KETONES [MASS/VOLU ME] IN URINE BY TEST STRIP NEGATIVE mg/dL 02/07 Specimen Type: URINE Comment: If Glucose = >500 and Ketones are positive, please alert the Physician. Ordering Provider: SHADIA DUMONT Report Released Date/Time: Jan 31, 2025 08:42 AM Reporting Lab: [facility] [place] [facility] [address] [facility] [address] Performing Lab: [facility] [place] [facility] [address] [facility] [address] [facility] [place] URINALYS IS ERYTHROCYT ES [PRESENCE] IN URINE SEDIMENT BY LIGHT MICROSCOPY NEGATIVE mg/dL 02/07 Specimen Type: URINE Comment: If Glucose = >500 and Ketones are positive, please alert the Physician. Ordering Provider: SHADIA DUMONT Report Released Date/Time: Jan 31, 2025 08:42 AM Reporting Lab: [facility] [place] [facility] [address] [facility] [address] Performing Lab: [facility] [place] [facility] [address] [facility] [address] [facility] [place] URINALYS IS PROTEIN [MASS/VOLU ME] IN URINE BY TEST STRIP 10 mg/dL 02/07 Specimen Type: URINE Comment: If Glucose = >500 and Ketones are positive, please alert the Physician. Ordering Provider: SHADIA DUMONT Report Released Date/Time: Jan 31, 2025 08:42 AM Reporting Lab: [facility] [place] [address] [address] Performing Lab: [facility] [place] [address] [address] [facility]ITALRENCOM[facility] MONTGOMERYTRN [facility]CHUSE [facility] URINALYS IS NITRITE [PRESENCE] IN URINE NEGATIVE mg/dL 02/07 Specimen Type: URINE Comment: If Glucose = >500 and Ketones are positive, please alert the Physician. Ordering Provider: SHADIA DUMONT Report Released Date/Time: Jan 31, 2025 08:42 AM Reporting Lab: [facility]ITALRENCOM[facility]TR[facility] [place] [address] [address] Performing Lab: [facility]RL [place] [address] [address] [facility]USE [facility] URINALYS IS BILIRUBIN. TOTAL [PRESENCE] IN URINE NEGATIVE mg/dL 02/07 Specimen Type: URINE Comment: If Glucose = >500 and Ketones are positive, please alert the Physician. Ordering Provider: SHADIA DUMONT Report Released Date/Time: Jan 31, 2025 08:42 AM Reporting Lab: [facility]ITALRENCOM[facility]ERYTR[facility] [place] [address] [address] Performing Lab: [facility]RL [place] [address] [address] [facility]ITALRCHOCTAW GENERAL HOSPITALN [facility]ENTERUSE [facility] URINALYS IS SPECIFIC GRAVITY OF URINE BY REFRACTOME TRY 1.024 1.016 - 1.022 02/07 H Specimen Type: URINE Comment: If Glucose = >500 and Ketones are positive, please alert the Physician. Ordering Provider: SHADIA DUMONT Report Released Date/Time: Jan 31, 2025 08:42 AM Reporting Lab: [facility] [place] [facility] [address] [facility] [address] Performing Lab: [facility] [place] [facility] [address] [facility] [address] [facility]ITALRL [facility] [place] [facility] URINALYS IS PH OF URINE BY TEST STRIP 7.0 5.0 - 9.0 02/07 Specimen Type: URINE Comment: If Glucose = >500 and Ketones are positive, please alert the Physician. Ordering Provider: SHADIA DUMONT Report Released Date/Time: Jan 31, 2025 08:42 AM Reporting Lab: [facility]ITAL[facility] [place] [facility] [address] [facility] [address] Performing Lab: [facility]R [facility] [address] [address] [facility] [facility] URINALYS IS UROBILINOG EN [MASS/VOLU ME] IN URINE BY TEST STRIP Normalmg /dL <2.0 - 2.0 02/07 Specimen Type: URINE Comment: If Glucose = >500 and Ketones are positive, please alert the Physician. Ordering Provider: SHADIA DUMONT Report Released Date/Time: Jan 31, 2025 08:42 AM Reporting Lab: [facility] [place] [facility] [address] [facility] [address] Performing Lab: [facility]RL [place] [address] [address] [facility]ITALR [facility] [place] [facility] URINALYS IS LEUKOCYTE ESTERASE [PRESENCE] IN URINE BY TEST STRIP NEGATIVE 02/07 Specimen Type: URINE Comment: If Glucose = >500 and Ketones are positive, please alert the Physician. Ordering Provider: SHADIA DUMONT Report Released Date/Time: Jan 31, 2025 08:42 AM Reporting Lab: [facility]ITAL[facility] [place] [facility] [address] [facility] [address] Performing Lab: [place] [facility] [address] [address] [facility]ITALRL [facility] [place] [facility] MICROALB UMIN CREATINI NE RATIO PANEL MICROALBUM IN/CREATIN INE [MASS RATIO] IN URINE cancmg/g 0 - 29.9 02/07 Specimen Type: URINE No comment entered. Ordering Provider: SHADIA DUMONT Report Released Date/Time: Jan 31, 2025 08:42 AM Reporting Lab: [facility] [place] [address] [address] Performing Lab: [facility] [place] [address] [address] [facility] [place] [facility] MICROALB UMIN CREATINI NE RATIO PANEL MICROALBUM IN [MASS/VOLU ME] IN URINE BY DETECTION LIMIT <= 1.0 MG/L < 0.5mg/dL 02/07 Specimen Type: URINE No comment entered. Ordering Provider: SHADIA DUMONT Report Released Date/Time: Jan 31, 2025 08:42 AM Reporting Lab: [facility] [place] [address] [address] Performing Lab: [facility] [place] [address] [address] [facility] [place] [facility] MICROALB UMIN CREATINI NE RATIO PANEL CREATININE [MASS/VOLU ME] IN URINE 192.39 mg/dL 02/07 Specimen Type: URINE No comment entered. Ordering Provider: SHADIA DUMONT Report Released Date/Time: Jan 31, 2025 08:42 AM Reporting Lab: [facility] [address] [address] Performing Lab: [facility] [place] [address] [address] [facility] [facility] BASIC METABOLI C PANEL (fasting ) UREA NITROGEN [MASS/VOLU ME] IN SERUM OR PLASMA 12 mg/dL - 02/07 Specimen Type: SERUM No comment entered. Ordering Provider: SHADIA DUMONT Report Released Date/Time: Jan 31, 2025 08:42 AM Reporting Lab: [facility] [address] [address] Performing Lab: [facility] [place] [address] [facility]ITALRENCOMPASS [facility] MONTGOMERYTRN [facility]USE [facility] BASIC METABOLI C PANEL (fasting ) GLUCOSE [MASS/VOLU ME] IN SERUM OR PLASMA 86 mg/dL 65 - 100 02/07 Specimen Type: SERUM No comment entered. Ordering Provider: SHADIA DUMONT Report Released Date/Time: Jan 31, 2025 08:42 AM Reporting Lab: [facility]ITALRENCOMPASS [facility] H[facility] OF MONTGOMERYTRN [facility]ENTERUSE[address] [address] Performing Lab: [facility] HOSPITALRL TRN [facility]ENTERUSE[address] [address] [facility]ERN [facility]ENTERUSE [facility] BASIC METABOLI C PANEL (fasting ) SODIUM [MOLES/VOL UME] IN SERUM OR PLASMA 137 mmol/L 135 - 145 02/07 Specimen Type: SERUM No comment entered. Ordering Provider: SHADIA DUMONT Report Released Date/Time: Jan 31, 2025 08:42 AM Reporting Lab: [facility]OSPITALRENCOMPASS [facility]IL[facility] HOS[facility] OF MONTGOMERYTRN [facility] CENTERUSE[address] [address] Performing Lab: [facility]OSPITALRENCOMPASS [facility]IL[facility] HOS[facility] OF MONTGOMERYTRN [facility]ENTERUSE[address] [address] [facility]ITALRCHOCTAW [facility]AL HOSPITALN [facility]ENTERUSE [facility] BASIC METABOLI C PANEL (fasting ) POTASSIUM [MOLES/VOL UME] IN SERUM OR PLASMA 4.1 mmol/L 3.5 - 5.0 02/07 Specimen Type: SERUM No comment entered. Ordering Provider: SHADIA DUMONT Report Released Date/Time: Jan 31, 2025 08:42 AM Reporting Lab: [facility] HOSPITALRL TRN [facility]ENTERUSE[address] [address] Performing Lab: [facility] HOSPITALRL TRN [facility]ENTERUSE[address] [address] [facility] HOSPITALRCHOCTAW GENERAL HOSPITALN [facility]ENTERUSE [facility] BASIC METABOLI C PANEL (fasting ) CHLORIDE [MOLES/VOL UME] IN SERUM OR PLASMA 106 mmol/L 100 - 110 02/07 Specimen Type: SERUM No comment entered. Ordering Provider: SHADIA DUMONT Report Released Date/Time: Jan 31, 2025 08:42 AM Reporting Lab: [facility] [place] [facility] [address] [facility] [address] Performing Lab: [facility] [place] [facility] [address] [facility] [address] [facility] [place] [facility] BASIC METABOLI C PANEL (fasting ) CARBON DIOXIDE, TOTAL [MOLES/VOL UME] IN SERUM OR PLASMA 21 meq/L 20 - 30 02/07 Specimen Type: SERUM No comment entered. Ordering Provider: SHADIA DUMONT Report Released Date/Time: Jan 31, 2025 08:42 AM Reporting Lab: [facility] [place] [facility] [address] [facility] [address] Performing Lab: [place] [facility] [place] [address] [address] [facility]OS[facility]ITALRL [facility] [place] [facility] BASIC METABOLI C PANEL (fasting ) CALCIUM [MASS/VOLU ME] IN SERUM OR PLASMA 9.0 mg/dL 8.5 - 10.2 02/07 Specimen Type: SERUM No comment entered. Ordering Provider: SHADIA DUMONT Report Released Date/Time: Jan 31, 2025 08:42 AM Reporting Lab: [facility] [place] [facility] [address] [facility] [address] Performing Lab: [facility] [place] [address] [address] [facility] [place] [facility] BASIC METABOLI C PANEL (fasting ) CREATININE [MASS/VOLU ME] IN SERUM OR PLASMA 0.97 mg/dL 0.50 - 1.40 02/07 Specimen Type: SERUM No comment entered. Ordering Provider: SHADIA DUMONT Report Released Date/Time: Jan 31, 2025 08:42 AM Reporting Lab: [facility] [place] [facility] [address] [facility] [address] Performing Lab: [facility] [place] [address] [address] [facility] [place] [facility] BASIC METABOLI C PANEL (fasting ) GLOMERULAR FILTRATION RATE/1.73 SQ M.PREDICTE D [VOLUME RATE/AREA] IN SERUM, PLASMA OR BLOOD BY CREATININE -BASED FORMULA (CKD-EPI 2020) >90mL/mi n 60 02/07 Specimen Type: SERUM No comment entered. Ordering Provider: SHADIA DUMONT Report Released Date/Time: Jan 31, 2025 08:42 AM Reporting Lab: [facility] [place] [address] [address] Performing Lab: [facility] [address] [address] [facility] [place] [facility] LIPID PANEL FASTING CHOLESTERO L [MASS/VOLU ME] IN SERUM OR PLASMA 152 mg/dL 02/07 Specimen Type: SERUM No comment entered. Ordering Provider: SHADIA DUMONT Report Released Date/Time: Jan 31, 2025 08:42 AM Reporting Lab: [facility] [address] Performing Lab: [facility] [address] [address] [facility] LIPID PANEL FASTING TRIGLYCERI DE [MASS/VOLU ME] IN SERUM OR PLASMA 42 mg/dL 0 - 150 02/07 Specimen Type: SERUM No comment entered. Ordering Provider: SHADIA DUMONT Report Released Date/Time: Jan 31, 2025 08:42 AM Reporting Lab: [facility] [address] [address] Performing Lab: [place] [facility] [place] [address] [address] [facility] LIPID PANEL FASTING CHOLESTERO L IN LDL [MASS/VOLU ME] IN SERUM OR PLASMA BY CALCULATIO N 86 mg/dL 0 - 129 02/07 Specimen Type: SERUM No comment entered. Ordering Provider: SHADIA DUMONT Report Released Date/Time: Jan 31, 2025 08:42 AM Reporting Lab: [facility] [place] [address] [address] Performing Lab: [place] [facility] [place] [facility] [address] [facility] [address] [facility] LIPID PANEL FASTING CHOLESTERO L.TOTAL/CH OLESTEROL IN HDL [MASS RATIO] IN SERUM OR PLASMA 2.6 02/07 Specimen Type: SERUM No comment entered. Ordering Provider: SHADIA DUMONT Report Released Date/Time: Jan 31, 2025 08:42 AM Reporting Lab: [facility] [address] [facility] [address] Performing Lab: [facility] [address] [facility] [address] [facility] LIPID PANEL FASTING CHOLESTERO L IN HDL [MASS/VOLU ME] IN SERUM OR PLASMA 58 mg/dL 40 - 60 02/07 Specimen Type: SERUM No comment entered. Ordering Provider: SHADIA DUMONT Report Released Date/Time: Jan 31, 2025 08:42 AM Reporting Lab: [facility] [address] [address] Performing Lab: [facility] [address] [address] [facility] LIVER FUNCTION PROTEIN [MASS/VOLU ME] IN SERUM OR PLASMA 7.3 g/dL 6.0 - 8.3 02/07 Specimen Type: SERUM No comment entered. Ordering Provider: SHADIA DUMONT Report Released Date/Time: Jan 31, 2025 08:42 AM Reporting Lab: [facility] [place] [address] [address] Performing Lab: [facility] [address] [address] [facility] TRN [facility] LIVER FUNCTION ALBUMIN [MASS/VOLU ME] IN SERUM OR PLASMA BY BROMOCRESO L PURPLE (BCP) DYE BINDING METHOD 4.5 g/dL 3.5 - 5.0 02/07 Specimen Type: SERUM No comment entered. Ordering Provider: SHADIA DUMONT Report Released Date/Time: Jan 31, 2025 08:42 AM Reporting Lab: [facility] [place] [facility] [address] [facility] [address] Performing Lab: [facility] [place] [facility] [address] [facility] [address] [facility] [place] [facility] LIVER FUNCTION ALKALINE PHOSPHATAS E [ENZYMATIC ACTIVITY/V OLUME] IN SERUM OR PLASMA 62 U/L 40 - 150 02/07 Specimen Type: SERUM No comment entered. Ordering Provider: SHADIA DUMONT Report Released Date/Time: Jan 31, 2025 08:42 AM Reporting Lab: [facility] [place] [facility] [address] [facility] [address] Performing Lab: [facility] [place] [facility] [address] [facility] [address] [facility] [place] [facility] LIVER FUNCTION ASPARTATE AMINOTRANS FERASE [ENZYMATIC ACTIVITY/V OLUME] IN SERUM OR PLASMA BY WITH P-5'-P 24 U/L 5 - 34 02/07 Specimen Type: SERUM No comment entered. Ordering Provider: SHADIA DUMONT Report Released Date/Time: Jan 31, 2025 08:42 AM Reporting Lab: [facility] [place] [facility] [address] [facility] [address] Performing Lab: [facility] [facility] [address] [facility] [address] [facility] [place] [facility] LIVER FUNCTION ALANINE AMINOTRANS FERASE [ENZYMATIC ACTIVITY/V OLUME] IN SERUM OR PLASMA BY WITH P-5'-P 26 U/L 02/07 Specimen Type: SERUM No comment entered. Ordering Provider: SHADIA DUMONT Report Released Date/Time: Jan 31, 2025 08:42 AM Reporting Lab: [facility] [place] [facility] [address] [facility] [address] Performing Lab: [facility] [facility] [address] [facility] [address] [facility] [place] [facility] LIVER FUNCTION BILIRUBIN. TOTAL [MASS/VOLU ME] IN SERUM OR PLASMA 1.8 mg/dL 0.2 - 1.2 02/07 H Specimen Type: SERUM No comment entered. Ordering Provider: SHADIA DUMONT Report Released Date/Time: Jan 31, 2025 08:42 AM Reporting Lab: [facility] [address] [facility] [address] Performing Lab: [address] [address] [facility] LIVER FUNCTION BILIRUBIN. DIRECT [MASS/VOLU ME] IN SERUM OR PLASMA 0.6 mg/dL 0 - 0.5 02/07 H Specimen Type: SERUM No comment entered. Ordering Provider: SHADIA DUMONT Report Released Date/Time: Jan 31, 2025 08:42 AM Reporting Lab: [facility] [address] [facility] [address] Performing Lab: [address] [address] [facility] Immunolo gy/Serol ogy Hep C Ab Negative [...] for proper notificatio n. Testing performed by [employer]. [facility] [facility] EPILAB HEPATITI S C ANTIBODY (HCV)-AR C HEPATITIS C VIRUS AB [PRESENCE] IN SERUM NON-REAC TIVE 01/31 Specimen Type: SERUM Comment: Hep C Ab: No HCV antibody detected. If recent infection is suspected or other evidence suggests HCV infection,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 Refractive State 69297 2011 ANITA CHAUDHRY Ophthalmological Prior Patient Start Comprehensive Care Ophthalmological Prior Patient Start Comprehensive Care 11110 2011 ANITA CHAUDHRY Psychometric Neuropsych Testing Battery Admin By Computer Psychometric Neuropsych Testing Battery Admin By Computer 56836 2010 SHIRA HATFIELD [facility] Fitting Monofocals (Not For Aphakia) [facility] Fitting Monofocals (Not For Aphakia) 81158 2010 NICOLAS ALTAMIRANO Determination Of Refractive State Determination Of Refractive State 12710 2010 NICOLAS ALTAMIRANO Prescription & Fitting Bilateral Corneal Lenses (Not Aphakia Prescription & Fitting Bilateral Corneal Lenses (Not Aphakia 22648 2010 NICOLAS ALTAMIRANO Ophthalmological New Patient Start Comprehensive Care Ophthalmological New Patient Start Comprehensive Care 72026 2010 NICOLAS ALTAMIRANO Physical Medicine Physical Therapy Re-Evaluation Physical Medicine Physical Therapy Re-Evaluation 52283 2009 JENN YUEN DoD Modalities Cryotherapy Cold Packs Modalities Cryotherapy Cold Packs 42576 2009 ELIZABETH RAMAN 15 mins DoD Exercises A isted Exercises For ROM Exercises Assisted Exercises For ROM 58410 2009 ELIZABETH RAMAN 45 mins DoD Modalities Cryotherapy Cold Packs Modalities Cryotherapy Cold Packs 43310 2009 DENITA SAUNDERS 15min DoD Exercises A isted Exercises For ROM Exercises Assisted Exercises For ROM 14938 2009 DENITA SAUNDERS 30min DoD Modalities Cryotherapy Cold Packs Modalities Cryotherapy Cold Packs 35464 2009 ELIZABETH RAMAN x 15 mins DoD Exercises A isted Exercises For ROM Exercises Assisted Exercises For ROM 24780 2009 ELIZABETH RAMAN x 30 mins DoD Physical Therapy: ___ Se ion Segments, 15 Minutes Each Physical Therapy: ___ Session Segments, 15 Minutes Each 33149 2009 JENN YUEN [facility] Physical Medicine Physical Therapy Re-Evaluation Physical Medicine Physical Therapy Re-Evaluation 47178 2009 JENN YUEN Physical Medicine Physical Therapy Evaluation Physical Medicine Physical Therapy Evaluation 10230 2009 JENN YUEN this is a SPEC DoD Modalities Cryotherapy Cold Packs Modalities Cryotherapy Cold Packs 64196 2009 ELIZABETH RAMAN x 15 mins DoD Exercises A isted Exercises For ROM Exercises Assisted Exercises For ROM 90477 2009 ELIZABETH RAMAN x 30 mins DoD Mobilization Soft Ti ue Mobilization Soft Tissue 73080 2009 ELIZABETH RAMAN 10 mins DoD Modalities Ultrasound Modalities Ultrasound 72473 2009 DENITA SAUNDERS 8 min DoD Mobilization Soft Ti ue Mobilization Soft Tissue 28493 2009 DENITA SAUNDERS 15 min DoD Exercises A isted Exercises For ROM Exercises Assisted Exercises For ROM 12371 2009 DENITA SAUNDERS 15min DoD Modalities Ultrasound Modalities Ultrasound 93013 2009 DENITA SAUNDERS 8min DoD Mobilization Soft Ti ue Mobilization Soft Tissue 71110 2009 DENITA SAUNDERS 15 min DoD Exercises A isted Exercises For ROM Exercises Assisted Exercises For ROM 08541 2009 DENITA SAUNDERS 15min DoD Modalities Ultrasound Modalities Ultrasound 44065 2009 DENITA SAUNDERS DoD Mobilization Soft Ti ue Mobilization Soft Tissue 92213 2009 DENITA SAUNDERS 30min DoD Modalities Ultrasound Modalities Ultrasound 34304 2009 DENITA SAUNDERS 8min DoD Mobilization Soft Ti ue Mobilization Soft Tissue 14134 2009 DENITA SAUNDERS 15min DoD Exercises A isted Exercises For ROM Exercises Assisted Exercises For ROM 75453 2009 DENITA SAUNDERS 15min DoD Modalities Ultrasound Modalities Ultrasound 05808 2009 DENITA SAUNDERS 8 min DoD Mobilization Soft Ti ue Mobilization Soft Tissue 83252 2009 DENITA SAUNDERS 15 min DoD Physical Therapy Mobilization Joint Physical Therapy Mobilization Joint 36405 2009 TEZ SALAZAR Physical Therapy: ___ Se ion Segments, 15 Minutes Each Physical Therapy: ___ Session Segments, 15 Minutes Each 35997 2009 TEZ SALAZAR Physical Medicine Physical Therapy Evaluation Physical Medicine Physical Therapy Evaluation 08923 2009 TEZ SALAZAR Closed Treatment Of Fracture Of Fibular Shaft 2009 YULIYA MARCUS [facility] Services Fitting Monofocals (Not For Aphakia) [facility] Fitting Monofocals (Not For Aphakia) 68540 2008 HOODLAURIE [facility] Determination Of Refractive State Determination Of Refractive State 13883 2008 LAURIE HOOD [facility] Prescription & Fitting Bilateral Corneal Lenses (Not Aphakia Prescription & Fitting Bilateral Corneal Lenses (Not Aphakia 35234 2008 HOODELKE MartinezG Trip [facility] Ophthalmological New Patient Start Comprehensive Care Ophthalmological New Patient Start Comprehensive Care 20814 2008 HOODLAURIE Martinez [facility] Extensive Color Vision Testing Extensive Color Vision Testing 70401 summerLITO Davis [facility] Lipids Test Panel Lipids Test Panel 90357 summerLITO Davis [facility] Blood Counts - CBC Blood Counts - CBC 43073 2007LITO A [facility] Sickle Cell Test Sickle Cell Test 13315 2007LITO A [facility] Serum VDRL 2007, LITO A [facility] Electrolyte Panel Electrolyte Panel 42162 01/26LITO A [facility] ECG 12-Lead ECG 12-Lead 40562 2007, LITO A Joshua Threshold Audiogram (Pure Tone) Threshold Audiogram (Pure Tone) 33609 2007 LITO SALAZAR Screening Test Of Visual Acuity, Quantitative, Bilateral Screening Test Of Visual Acuity, Quantitative, Bilateral 14704 2007LITO A [facility] Health And Behav A e mt Each 15 Min Initial A e ment Health And Behav Assessmt Each 15 Min Initial Assessment 67987 2007LITO Determination Of Refractive State Determination Of Refractive State 35208 2007 YONY SAMANO Ophthalmological Prior Patient Start Intermediate Level Care Ophthalmological Prior Patient Start Intermediate Level Care 41712 2007 YONY SAMANO [facility] Fitting Monofocals (Not For Aphakia) [facility] Fitting Monofocals (Not For Aphakia) 73350 2006 YONY SAMANO Ophthalmological Prior Patient Start Comprehensive Care Ophthalmological Prior Patient Start Comprehensive Care 07171 2006 YONY SAMANO Determination Of Refractive State Determination Of Refractive State 39498 2006 YONY SAMANO Threshold Audiogram (Pure Tone) Threshold Audiogram (Pure Tone) 28368 2006 DARIA NELSON Prescription & Fitting Bilateral Corneal Lenses (Not Aphakia Prescription & Fitting Bilateral Corneal Lenses (Not Aphakia 83828 2004 GEORGINA PERALTA Ophthalmological New Patient Start Comprehensive Care Ophthalmological New Patient Start Comprehensive Care 13168 2004 GEORGINA PERALTA Determination Of Refractive State Determination Of Refractive State 61361 2004 GEORGINA PERALTA No data available for this section Ambulato ry Pharmacy Social History Combined list of available smoking, tobacco, and other social history from 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 Social History Type Response Date Comment [facility] status [facility] VA-TOBACCO NEVER USED CIGARETTES 02/09/2025 [place] History of tobacco use VA-TOBACCO NEVER USED OTHER TYPE 02/09/2025 [place] History of tobacco use CO-TOBACCO NEVER USED 01/07/2024 [place] Sex Representation Male (finding) 11/20/2022 Un known Organization This section is an empty social history section. DoD Sexual Orientation Ambula tory Pharmacy Gender identity [...] was given to patient and uploaded into powerchart. Marguerite Baldwin, Supervisor Ride Assembly Tablet Making Machine Operator Helper [facility] Readiness and Training Unit, [place], [place] ? ? Extracted from:Title: PHA / [...] ?n/a SF 507: _ Comments: Addendum by CORWIN WHEELER MD on September 10, 2024 11:09 EDT Chief Complaint: Member here for annual PHA.?No acute complaints.?IMR?green. HEENT:?Normal Joints:?Normal Lungs:?Normal Heart:?Normal Comments: ANNUAL PERIODIC HEALTH ASSESSMENT I. PRESSROOM SUPERVISOR INFORMATION AND DEMOGRAPHICS (SMI) 1. Last Name: THERSEA 2. First Name: DOMINIQUE 3. Middle Name: CLAUDIA 4. Assessment Date: 5. : 6. Age: 39 7. Gender: M 8. DoD ID Number: [id number] 9. Service Branch: [employer] 10. 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 Unit Name: [address] 14. Duty Station/Location: [place] 15. UIC: [id number] 16. Is this your first Periodic Health Assessment (PHA)?: N 17. Are you enrolled in a secure messaging system with your health care provider?: Y 18. Current contact information: Preferred Method: Day Time Phone DSN: Day Time Phone: [phone] Night Time Phone: [phone] Email 1: [email or web address] Email 2: Address: [address] [place] [address]: [facility]: [place] Zip Code: [address] 19. Point of contact who can always reach you: Name: Debi Cardenas Phone 1: [phone] Phone 2: EMAIL: [email or web address] Address: [address] [place] [address]: [facility]: [place] Zip Code: [address] II. DEPLOYMENT INFORMATION (DEP) 1. [ 0 [...] easily startled? 6. d. [ No ] [place] numb or detached from others, activities, or your surroundings? 6. e. [ Not answered ] [place] guilt or unable to stop blaming yourself [...] like to schedule a visit with a vocational rehabilitation teacher, mental health care provider, or a community [...] [ cyclobenzaprine, meloxicam ] What prescriptions or hlba-ufy-ndrquzx medications are you CURRENTLY taking for health [...] had a cholesterol check by a health rn progressive care within the PAST 5 YEARS? 13.a. In [...] [place] [facility] [place] [facility]: [facility] 5. Member acknowledged responsibility for reporting health issues. 7. [ No ] Woud you like to schedule an appointment with a health care provider to discuss any health concerns? XI. SEPARATION AND SNF 1. [ Yes ] Are you planning to separate or retire within the next year from Active Duty or [place] Duty (activated for greater than 30 continuous days) OR do you intend to file a claim for disability compensation with the [employer] Benefits Administration? ---- PART B. RECORD REVIEW AND RECOMMENDATIONS I. RECORD REVIEWER INFORMATION 1. Last Name: SHON 2. First Name: RAVINDER 3. Middle Name: 4. 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 EMAIL: [email or web address] 8. Facility: [facility] 9. Unit[facility] [facility] 10. Address: [address] [place] [address] 11. State: [facility]. Zip Code: [address] 13. Phone: [phone] 14. Date Record Review: II. MEDICAL SCREENING 1. [ ] Date of research staff member's most recent PHA 2. [ 5 feet 9 inches Date: ] research staff member's most recently documented height 3. [ 192 pounds Date: ] research staff member's most recently documented weight 4. [ 115/68 Date: ] research staff member's most recently documented blood pressure reading 5. [ No ] Does the research staff member have a history of abnormal blood pressure since their last PHA? 6. [ Yes ] Does the research staff member have a laboratory test of sickle cell trait documented in their permanent medical record? 7. [ ] What is the date of the research staff member's most recently documented cholesterol test? 9. [ Meloxicam 15mg ] List of research staff member's active medications listed in their permanent medical record 10. [ Yes: Cyclobenzaprine 10mg ] Is there a discrepancy between the active medication record review and the research staff member's self-reported list of medications? 11. [ No Outside Care Documented ] List documented significant care the research staff member has received since their last PHA from a provider OUTSIDE the Health System 12. [ No ] Is there a discrepancy between the research staff member's list of OUTSIDE care (from OT5), and the OUTSIDE care found in the record? 13. [ No Inside Care Documented ] List documented significant care the research staff member has received since their last PHA from a provider INSIDE the Health System 15. [ Not Answered ] Confirm that vaccine exemptions are listed in the medical record for each vaccine listed III. OCCUPATION-SPECIFIC EXAMINATIONS 2. [ ] When was the research staff member's most recently documented evaluation? IV. FAMILY HISTORY AND LIFESTYLE 1. [ Yes ] Does the [id number] reflect the research staff member's reported family history? VII. INDIVIDUAL MEDICAL READINESS 1. [ No ] Does the research staff member have an Assignment Limitation Code C? 3. [ Classification: 2 ] Most recently documented dental exam 4. [ No: Influenza, [place] ] Is the research staff member current on all required immunizations in the immunization tracking system? 5. [ Yes ] Is the research staff member current with Service-specific requirements for glasses and gas mask inserts? 6. Does the research staff member have the following laboratory tests documented [...] need to be forwarded to the Health Health Aide completing PART C: Member reports periods of [...] 1. Last Name: LIAM 2. First Name: CORWIN 3. Middle Name: 4. Service Branch: [employer] 5. 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 EMAIL: [email or web address] 8. Facility: [address] [place], [place] [id number] 9. Unit: [address] [place], [place] [id number] 10. Address: [address] [place] [address] 11. State: [place] 12. Zip Code: [address] 13. Phone: [phone] 14. Date HCP Review initiated: 1. Member [...] 1. Last Name: LIAM 2. First Name: CORWIN 3. Middle Name: 4. Service Branch: [employer] 5. 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 EMAIL: [email or web address] 8. Facility: [facility] 9. Unit: [facility] 10. Address: [facility] [place] 11. State: [place] 12. Zip Code: [address] 13. Phone: [phone] 14. Date HCP Review initiated: IV. PERIODIC HEALTH ASSESSMENT PROVIDER RECOMMENDATIONS and REFERRALS 1. Provider concerns with this assessment: No issues or concerns identified V. SUMMARY AND COMMENTS 1. Additional information summarizing findings during the research staff member assessment: 2. Provider Comments: Member is retiring next month. No major concerns. Reports occasional lightheadedness when standing up too fast. No other concerns. . INDIVIDUAL MEDICAL READINESS DISPOSITION DETERMINATION GABINO: Ready DEN: Ready IMM: Ready LAB: Ready ME: Ready IMR Status: Fully Medically Ready VII. SERVICE MEDICAL DEPLOYABILITY EVALUATION INDICATED Based on your review of all documentation, is the research staff member medically deployable without limitations? Reference [facility] 6490.07 Yes (research staff member DOES NOT currently have a medical condition that limits deployability) Date PHA Completed: END OF [id number] REPORT Impression:Meets?medical standards per DAFMAN 48-123/MSD. Disposition:?No AF469 changes based on this encounter.[employer] Qualified. 02/28/[address] [place] [address] Assessment and Plan Extracted from:Title : Office Clinic Note Author: MARGUERITE BALDWIN Date: 09/20/24 Encounter for examination and observation for other specified reasons Hearing threshold stable. Patient's left ear reference audiogram was re-established after follow-up program. A copy of hearing test was given to patient and uploaded into [employer]. Marguerite Baldwin, Supervisor Ride Assembly Tablet Making Machine Operator Helper [facility], [place], [place] ? ? Extracted from:Title: PHA / [...] ?n/a SF 507: _ Comments: Addendum by CORWIN WHEELER MD on September 10, 2024 11:09 EDT Chief Complaint: Member here for annual PHA.?No acute complaints.?IMR?green. HEENT:?Normal Joints:?Normal Lungs:?Normal Heart:?Normal Comments: ANNUAL PERIODIC HEALTH ASSESSMENT I. PRESSROOM SUPERVISOR INFORMATION AND DEMOGRAPHICS (SMI) 1. Last Name: THERESA 2. First Name: DOMINIQUE 3. Middle Name: CLAUDIA 4. Assessment Date: 5. : 6. Age: 39 7. Gender: M 8. [employer] ID Number: [id number] 9. Service Branch: [employer] 10. 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 Unit Name: [address] 14. Duty Station/Location: [place] 15. [facility]: [id number] 16. Is this your first Periodic Health Assessment (PHA)?: N 17. Are you enrolled in a secure messaging system with your health care provider?: Y 18. Current contact information: Preferred Method: Day Time Phone DSN: Day Time Phone: [phone] Night Time Phone: [phone] Email 1: [email or web address] Email 2: Address: [address] [place] [address]: [facility]: [place] Zip Code: [address] 19. Point of contact who can always reach you: Name: Debi Theresa Phone 1: [phone] Phone 2: EMAIL: [email or web address] Address: [address] [place] [address]: [facility]: [place] Zip Code: [address] II. DEPLOYMENT INFORMATION (DEP) 1. [ 0 [...] easily startled? 6. d. [ No ] [place] numb or detached from others, activities, or your surroundings? 6. e. [ Not answered ] [place] guilt or unable to stop blaming yourself [...] like to schedule a visit with a vocational rehabilitation teacher, mental health care provider, or a community [...] [ cyclobenzaprine, meloxicam ] What prescriptions or fvoh-gdu-rccnwjr medications are you CURRENTLY taking for health [...] had a cholesterol check by a health rn progressive care within the PAST 5 YEARS? 13.a. In [...] [facility] [place]. Where: [facility] 5. Member acknowledged responsibility for reporting health issues. 7. [ No ] Woud you like to schedule an appointment with a health care provider to discuss any health concerns? XI. SEPARATION AND SNF 1. [ Yes ] Are you planning to separate or retire within the next year from Active Duty or [place] Duty (activated for greater than 30 continuous days) OR do you intend to file a claim for disability compensation with the [employer] Benefits [employer]? ---- PART B. RECORD REVIEW AND RECOMMENDATIONS I. RECORD REVIEWER INFORMATION 1. Last Name: SHON 2. First Name: RAVINDER 3. Middle Name: 4. 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 EMAIL: [email or web address] 8. Facility: 9 [facility] 9. Unit: [facility] 10. Address: [address] [place] [address] 11. State: [place] 12. Zip Code: [address] 13. Phone: [phone] 14. Date Record Review: II. MEDICAL SCREENING 1. [ ] Date of research staff member's most recent PHA 2. [ 5 feet 9 inches Date: ] research staff member's most recently documented height 3. [ 192 pounds Date: ] research staff member's most recently documented weight 4. [ 115/68 Date: ] research staff member's most recently documented blood pressure reading 5. [ No ] Does the research staff member have a history of abnormal blood pressure since their last PHA? 6. [ Yes ] Does the research staff member have a laboratory test of sickle cell trait documented in their permanent medical record? 7. [ ] What is the date of the research staff member's most recently documented cholesterol test? 9. [ Meloxicam 15mg ] List of research staff member's active medications listed in their permanent medical record 10. [ Yes: Cyclobenzaprine 10mg ] Is there a discrepancy between the active medication record review and the research staff member's self-reported list of medications? 11. [ No Outside Care Documented ] List documented significant care the research staff member has received since their last PHA from a provider OUTSIDE the Health System 12. [ No ] Is there a discrepancy between the research staff member's list of OUTSIDE care (from OT5), and the OUTSIDE care found in the record? 13. [ No Inside Care Documented ] List documented significant care the research staff member has received since their last PHA from a provider INSIDE the Health System 15. [ Not Answered ] Confirm that vaccine exemptions are listed in the medical record for each vaccine listed III. OCCUPATION-SPECIFIC EXAMINATIONS 2. [ ] When was the research staff member's most recently documented evaluation? IV. FAMILY HISTORY AND LIFESTYLE 1. [ Yes ] Does the [id number] reflect the research staff member's reported family history? VII. INDIVIDUAL MEDICAL READINESS 1. [ No ] Does the research staff member have an Assignment Limitation Code C? 3. [ Classification: 2 ] Most recently documented dental exam 4. [ No: Influenza, [place] ] Is the research staff member current on all required immunizations in the immunization tracking system? 5. [ Yes ] Is the research staff member current with Service-specific requirements for glasses and gas mask inserts? 6. Does the research staff member have the following laboratory tests documented [...] need to be forwarded to the Health Health Aide completing PART C: Member reports periods of [...] 1. Last Name: LIAM 2. First Name: CORWIN 3. Middle Name: 4. Service Branch: [employer] 5. 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 EMAIL: [email or web address] 8. Facility: [email or web address] 9. Unit: [email or web address] 10. Address: [address] [place] [address] [place] 11. State: [place] 12. Zip Code: [address] 13. Phone: [phone] 14. Date HCP Review initiated: 1. Member [...] 1. Last Name: LIAM 2. First Name: CORWIN 3. Middle Name: 4. 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 EMAIL: [email or web address] 8. Facility: 9 [facility] 9. Unit: 9 [facility]Q 10. Address: [facility] [place] 11. State: [place] 12. Zip Code: [address] 13. Phone: [phone] 14. Date HCP Review initiated: IV. PERIODIC HEALTH ASSESSMENT PROVIDER RECOMMENDATIONS and REFERRALS 1. Provider concerns with this assessment: No issues or concerns identified V. SUMMARY AND COMMENTS 1. Additional information summarizing findings during the research staff member assessment: 2. Provider Comments: Member is retiring next month. No major concerns. Reports occasional lightheadedness when standing up too fast. No other concerns. . INDIVIDUAL MEDICAL READINESS DISPOSITION DETERMINATION GABINO: Ready DEN: Ready IMM: Ready LAB: Ready ME: Ready IMR Status: Fully Medically Ready VII. SERVICE MEDICAL DEPLOYABILITY EVALUATION INDICATED Based on your review of all documentation, is the research staff member medically deployable without limitations? Reference [facility] 6490.07 Yes (research staff member DOES NOT currently have a medical condition that limits deployability) Date PHA Completed: END OF [id number] REPORT Impression:Meets?medical standards per DAFMAN 48-123/MSD. Disposition:?No AF469 changes based on this encounter.World-[employer]ide Qualified. 02/28/2025 [id number] [facility] Plan of Care List of future care activities from Department of 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 Additional future care activities may be listed in the Assessment and Plan section. Date/Time Care Activity Care Activity Detail Facili ty 03/02/2025 [facility] - REHAB MEDICINE AM[facility] MED[facility] [place] Functional Status Combined list of recent functional and cognitive assessments recorded at Department of Defense and Veterans Affairs (VA).VA Functional Erhard Measurement (FIM) Scale: 1 = Total Assistance (Subject = 0% +), 2 = Maximal Assistance (Subject = 25% +), 3 = Moderate Assistance (Subject = 50% +), 4 = Minimal Assistance (Subject = 75% +), 5 = Supervision, 6 = Modified Erhard (Device), 7 = Complete Erhard (Timely, Safely). Assessment Date/Time Source Assessment Type Assessment Skill Assessment Score Assessment Details No data available for this section
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
== END 2025-02-28 08:00 | disposition home or self-care (01) ==
LOC: HO.HMGCX 07:59
PROVIDERS: PCP Nurse Practitioner Family; Visit Provider Nurse Practitioner Family
DX: R17 Unspecified jaundice (principal)
CPT/HCPCS: 76700

== ENCOUNTER → 2025-02-28 08:01 | Outpatient (BNV) | payer OTHER, SELFPAY | PROVIDERS: PCP Nurse Practitioner Family; Visit Provider Radiology Diagnostic Radiology | DX: R17 Unspecified jaundice (principal) | CPT/HCPCS: 76700 ==